=== PATIENT | female | born 1980 | race Caucasian/White ===

== ENCOUNTER 2017-11-13 14:37 | Emergency (ER) | payer MEDICARE, SELFPAY ==
[2017-11-13 14:38] VITALS: BP 147/93; PULSE 80; RESP 16; TEMP 37.2; O2SAT 100; BMI 31.1
--- NOTE | 2017-11-13 15:05 | ED.VISSUMM ---
- ER Visit Summary Date of Service: 11/13/17 Chief Complaint: I feel dehydrated History of Present Illness: The patient is a 37 F history of depression and PTSD and also an eating disorder. Patient states a deal with her stress she works out excessively and does not feel that she has kept up with her fluid intake. She denies any vomiting or diarrhea. She has never had rhabdomyolysis. And she denies any change in her urine color. Physical Examination: Well-appearing female. Vital signs are stable afebrile. HEENT exam mildly dry mucous members. Neck nontender no lymphadenopathy. Lungs clear to auscultation bilaterally. Heart regular rhythm no murmur rate about 80. Abdomen soft nontender. Normal bowel sounds no peritoneal signs. Extremities moving all 4. Calves nontender. No edema. Muscles are not tender. Neurologically awake and alert with no focal deficits. Test Results: She is a chronic anemia hemoglobin 10.8. Normal white count. Electrolytes unremarkable gap of 6 BUN and creatinine 25 and 0.7 consistent with very mild dehydration. Emergency Department Course and Treatment: Patient did not feel that she could adequately hydrate herself orally. She will be given IV fluids. Screening labs will be obtained. Treatment Plan: Exam patient is doing well after IV fluids. She will be discharged home. Disposition: Discharge Impression: Dehydration This note was generated with [employer] dictation software. It may contain incorrect words, spelling, and punctuation that were not noted in review of the chart prior to signing ED Disposition - Plan for ED Patient: Chief Complaint: General Illness Referrals: April Aguilar MD [Primary Care Provider] -
[2017-11-13] MEDS: 0.9% Normal Saline 1,000 ML 1000 ML IV (15:29)
[2017-11-13 15:37] LABS: Absolute Neutrophil Count 4.9 X10^3/uL (2.0-7.7); Basophil# 0.03 X10^3/uL; Basophil% 0.4 % (0-1); Eosinophil# 0.06 X10^3/uL; Eosinophils% 0.8 % (0-5); Hematocrit 33.8 % (37-47); Hemoglobin 10.8 g/dl (12.0-15.0); Lymphocyte % 27.5 % (19-41); Mean Corpuscular Hgb 27.6 pg (27.0-32.0); Mean Corpuscular Volume 86.2 fL (81-99); Mean Platelet Vol. 9.1 fl (6.2-12.0); Monocyte# 0.81 X10^3/uL; Monocyte% 10.1 % (0-10); Neutrophil # 4.87 X10^3/uL (2.7-7.7); Neutrophil % 60.9 % (47-70); Platelet Count 284 K/mm3 (150-450); RBC Distribution Width CV 14.4 % (11.6-14.6); Red Blood Count 3.92 M/mm3 (4.2-5.4)
[2017-11-13 15:40] LABS: POSITIVE COUNT NO; POSITIVE DIFFERENTIAL NO; POSITIVE MORPHOLOGY NO
[2017-11-13 15:53] LABS: Anion Gap 6 (5-15); BUN 25 mg/dL (7-18); BUN/Creat Ratio 34.7 RATIO (10-20); Calcium,Total 8.3 mg/dL (8.5-10.1); Chloride 107 mmol/L (98-107); Creatinine, Serum 0.72 mg/dL (0.55-1.02); EST Glomerular Filtration Rate 96 mL/min (>60); Est Glom Filt Rate - Afr Amer 117 mL/min (>60); Estimated Creatinine Clearance 83.79 ml/min; Glucose 83 mg/dL (74-106); Potassium 4.3 mmol/L (3.5-5.1); Sodium Level 140 mmol/L (136-145)
--- NOTE | 2017-11-13 16:30 | ED.DEP ---
ED Disposition - Plan for ED Patient: Disposition: Home or Assisted Living Chief Complaint: General Illness Instructions: Dehydration Referrals: April Aguilar MD [Primary Care Provider] - As Needed Additional Instructions: Plenty of fluids and rest Follow-up with your doctor as needed.
[2017-11-13 16:41] VITALS: BP 121/79; PULSE 93; RESP 16; O2SAT 100
== END 2017-11-13 16:42 | disposition home or self-care (01) ==
PROVIDERS: Emergency Provider Emergency Medicine; Family Provider Internal Medicine; PCP Internal Medicine
DX: E86.0 Dehydration (principal); F32.9 Major depressive disorder, single episode, unspecified; F43.10 Post-traumatic stress disorder, unspecified; Z79.899 Other long term (current) drug therapy
CPT/HCPCS: 80048; 85025; 96360; 99283; J7030; A4216

== ENCOUNTER 2017-11-14 11:31 | Emergency (ER) | payer MEDICARE, SELFPAY ==
[2017-11-14 11:32] VITALS: BP 124/85; PULSE 79; RESP 14; TEMP 37.2; O2SAT 100; BMI 31.6
--- NOTE | 2017-11-14 11:47 | ED.VISSUMM ---
- ER Visit Summary Date of Service: 11/14/17 Chief Complaint: Dehydration I need a second liter of normal saline History of Present Illness: The patient is a 37 F because she did not receive a second liter of normal saline. She states she returned because she was told to. She also told me I am not to be in the room with out a female esthetics instructor. There are there is no notation that male physicians are to be accompanied by a female esthetics instructor. Furthermore, I informed her that I read Dr. Walker's notes and there was no mention that he had a esthetics instructor during his examination. Patient states she needs more fluids. She was asked specifically if she has fever, chills night sweats and she states no. She was asked specifically if she has had nausea, vomiting diarrhea and she states no. When informed based on the WHO oral hydration is the recommended treatment she informed me that it is not a simple process for me . I asked her to elaborate. She informed me that she has a eating disorder. She states that she flip-flops between binge eating and anorexia nervosa atypical . Physical Examination: Has a depressed affect. Vital signs are marked for slight elevation blood pressure 08/20/1984. Head is atraumatic normocephalic. Pupils equal round reactive. Extra muscles are intact. Tongue and mucosa are tacky. The remainder of H&T exam is unremarkable. Heart is regular without murmur, gallop or rub. S1 and S2 are normal. Lungs are clear to auscultation with good movement of air bilaterally. Abdomen is soft nontender with mobile bowel sounds. She is alert oriented with a nonfocal neurologic exam Test Results: None. Labs from yesterday were reviewed. Emergency Department Course and Treatment: Patient was informed there is no indication for repeat blood work nor is there an indication for IV fluids. I informed her that since she has no vomiting or diarrhea that she could safely rehydrate herself at home. She also was informed that she should drink water 2 hours, 1 hour and 20 minutes before she goes on her 3 hour exercise binge. Furthermore, she was told that she should drink water or a replenishing liquid every 2030 minutes while exercising. Treatment Plan: Oral hydration at home Disposition: Discharged home in stable condition Impression: Mild dehydration secondary to excessive physical activity This note was generated with [employer] dictation software. It may contain incorrect words, spelling, and punctuation that were not noted in review of the chart prior to signing ED Disposition - Plan for ED Patient: Disposition: Home or Assisted Living Chief Complaint: General Illness Instructions: ED Dehydration Referrals: April Aguilar MD [Primary Care Provider] - As Needed
--- NOTE | 2017-11-14 11:53 | ED.DCSUM_ITS ---
- ER Visit Summary Date of Service: 11/14/17 Chief Complaint: Dehydration I need a second liter of normal saline History of Present Illness: The patient is a 37 F because she did not receive a second liter of normal saline. She states she returned because she was told to. She also told me I am not to be in the room with out a female bariatric physician. There are there is no notation that male physicians are to be accompanied by a female bariatric physician. Furthermore, I informed her that I read Dr. Walker's notes and there was no mention that he had a bariatric physician during his examination. Patient states she needs more fluids. She was asked specifically if she has fever, chills night sweats and she states no. She was asked specifically if she has had nausea, vomiting diarrhea and she states no. When informed based on the WHO oral hydration is the recommended treatment she informed me that it is not a simple process for me . I asked her to elaborate. She informed me that she has a eating disorder. She states that she flip-flops between binge eating and anorexia nervosa atypical . Physical Examination: Has a depressed affect. Vital signs are marked for slight elevation blood pressure 08/20/1984. Head is atraumatic normocephalic. Pupils equal round reactive. Extra muscles are intact. Tongue and mucosa are tacky. The remainder of H&T exam is unremarkable. Heart is regular without murmur, gallop or rub. S1 and S2 are normal. Lungs are clear to auscultation with good movement of air bilaterally. Abdomen is soft nontender with mobile bowel sounds. She is alert oriented with a nonfocal neurologic exam Test Results: None. Labs from yesterday were reviewed. Emergency Department Course and Treatment: Patient was informed there is no indication for repeat blood work nor is there an indication for IV fluids. I informed her that since she has no vomiting or diarrhea that she could safely rehydrate herself at home. She also was informed that she should drink water 2 hours, 1 hour and 20 minutes before she goes on her 3 hour exercise binge. Furthermore, she was told that she should drink water or a replenishing liquid every 2030 minutes while exercising. Treatment Plan: Oral hydration at home Disposition: Discharged home in stable condition Impression: Mild dehydration secondary to excessive physical activity This note was generated with [employer] dictation software. It may contain incorrect words, spelling, and punctuation that were not noted in review of the chart prior to signing ED Disposition - Plan for ED Patient: Disposition: Home or Assisted Living Chief Complaint: General Illness Instructions: ED Dehydration Referrals: April Aguilar MD [Primary Care Provider] - As Needed
== END 2017-11-14 12:11 | disposition home or self-care (01) ==
LOC: ED 12:10
PROVIDERS: Emergency Provider Emergency Medicine; Family Provider Internal Medicine; PCP Internal Medicine
DX: E86.0 Dehydration (principal); E66.9 Obesity, unspecified; Z68.31 Body mass index [BMI] 31.0-31.9, adult
CPT/HCPCS: 99282

== ENCOUNTER 2018-01-20 12:30 | Emergency (ER) | payer MEDICARE, SELFPAY ==
[2018-01-20 12:31] VITALS: BP 123/82; PULSE 92; RESP 16; TEMP 36.6; O2SAT 99; BMI 32.8
--- NOTE | 2018-01-20 12:47 | CT_ITS ---
STUDY: CT BRAIN WITHOUT CONTRAST REASON FOR EXAM: Female, 37 years old. Headaches following a fall. RADIATION DOSAGE (If Supplied By Facility): CTDIvol = ( 44.99 ) mGy, DLP = ( 711.75 ) mGycm TECHNIQUE: Transaxial CT imaging of the brain was performed without administration of intravenous contrast material. Individualized dose optimization techniques were used for this CT. COMPARISON: Comparison is made with prior study dated August 06, 2016. FINDINGS: Normal soft tissue structures. Normal calvarium. Normal size ventricles and extra-axial spaces for the patient's age. Normal white matter tracts of the cerebral hemispheres. Normal basal ganglia and thalami. Normal brainstem. Normal cerebellum. There is no intracranial hemorrhage. There are no findings of an acute ischemic infarction. Normal visualized paranasal sinuses. CT/Brain/Head without Contrast IMPRESSION: Normal unenhanced CT scan of the brain. Electronically Signed: Eleuterio Catalan MD at 13:47 EDT Tel [phone], Service support ,
--- NOTE | 2018-01-20 12:48 | CT_ITS ---
STUDY: CT CERVICAL SPINE WITHOUT CONTRAST REASON FOR EXAM: Female, 37 years old. History of fall. RADIATION DOSAGE (If Supplied By Facility): CTDIvol = ( 18.29 ) mGy, DLP = ( 419.16 ) mGycm TECHNIQUE: High resolution transaxial imaging was performed without contrast material. Sagittal and coronal images were reconstructed. Individualized dose optimization techniques were used for this CT. COMPARISON: Comparison is made with prior study dated August 06, 2016. FINDINGS: Normal craniovertebral junction. Normal anterior atlantoaxial articulation. Normal odontoid process. There is straightening of the normal cervical lordosis. Normal vertebral bodies and posterior osseous elements. C2-3: Normal endplates. Normal disc height and morphology. Normal central canal and intervertebral neuroforamina. C3-4: Normal endplates. Normal disc height and morphology. Normal central canal and intervertebral neuroforamina. C4-5: Normal endplates. Normal disc height and morphology. Normal central canal and intervertebral neuroforamina. C5-6: Minimal degree of disc space narrowing and anterior spondylosis. C6-7: Normal endplates. Normal disc height and morphology. Normal central canal and intervertebral neuroforamina. C7-T1: Normal endplates. Normal disc height and morphology. Normal central canal and intervertebral neuroforamina. Normal visualized soft tissue structures. CT/Spine Cervical without Contras IMPRESSION: No acute abnormality is seen. Straightening of the normal cervical lordosis. Electronically Signed: Eleuterio Catalan MD at 13:48 EDT Tel [phone], Service support ,
[2018-01-20] MEDS: 0.9% Normal Saline 1,000 ML 1000 ML IV (13:18)
[2018-01-20 13:40] LABS: Anion Gap 7 (5-15); BUN 24 mg/dL (7-18); BUN/Creat Ratio 29.5 RATIO (10-20); Calcium,Total 8.7 mg/dL (8.5-10.1); Chloride 104 mmol/L (98-107); Creatinine, Serum 0.81 mg/dL (0.55-1.02); EST Glomerular Filtration Rate 84 mL/min (>60); Est Glom Filt Rate - Afr Amer 101 mL/min (>60); Estimated Creatinine Clearance 74.48 ml/min; Glucose 84 mg/dL (74-106); Potassium 4.4 mmol/L (3.5-5.1); Sodium Level 141 mmol/L (136-145)
--- NOTE | 2018-01-20 15:27 | ED.VISSUMM ---
- ER Visit Summary Date of Service: 01/20/18 Chief Complaint: Head injury History of Present Illness: The patient is a 37 F who tripped on a step and fell striking the left side of her head. She did not lose consciousness. She is complaining of continued headache and neck pain. She denies nausea or vomiting. She denies vision change. Physical Examination: Vital signs are unremarkable. Patient sitting upright in bed no acute distress. Head and neck examination was no obvious external sign of trauma. There is no focal abrasion or ecchymosis. C-spine exam reveals lower C-spine tenderness both midline and paraspinal. Heart is regular rate and rhythm. On lung sounds are clear. Abdomen is soft nontender. Extremity examination is unremarkable with full range of motion and normal strength and sensation. Test Results: CT the head is normal. CT the C-spine shows no acute abnormality. There is straightening of the normal cervical lordosis. Chemistry studies are significant for BUN of 24. Emergency Department Course and Treatment: Patient does have a history of eating disorder and is requesting fluid state that she has not been eating much lately. She is given a liter of fluids along with a dose of Toradol. On repeat evaluation she is resting comfortably. Test results were discussed with her. She will take Tylenol at home and use warm compresses to her neck. Treatment Plan: [] Disposition: Discharge Impression: 1. Mechanical fall 2. Cervical spasm This note was generated with [employer] dictation software. It may contain incorrect words, spelling, and punctuation that were not noted in review of the chart prior to signing ED Disposition - Plan for ED Patient: Chief Complaint: Fall Referrals: April Aguilar MD [Primary Care Provider] -
--- NOTE | 2018-01-20 15:28 | ED.DEP ---
ED Disposition - Plan for ED Patient: Disposition: Home or Assisted Living Chief Complaint: Fall Instructions: ED Mechanical Fall, ED Sprain Strain Neck Referrals: April Aguilar MD [Primary Care Provider] - 1 Week if not improving
[2018-01-20 15:29] VITALS: BP 115/78; PULSE 106; RESP 16; O2SAT 100
[2018-01-20] MEDS: Naproxen 500 MG Tablet PO (15:42)
== END 2018-01-20 15:43 | disposition home or self-care (01) ==
PROVIDERS: Emergency Provider Emergency Medicine; Family Provider Internal Medicine; PCP Internal Medicine
DX: M62.838 Other muscle spasm (principal); W01.0XXA Fall on same level from slipping, tripping and stumbling without subsequent striking against object, initial encounter; Y93.9 Activity, unspecified; Y92.9 Unspecified place or not applicable; F32.9 Major depressive disorder, single episode, unspecified; Z79.899 Other long term (current) drug therapy
CPT/HCPCS: 70450; 72125; 80048; 96360; 99284; J7030

== ENCOUNTER 2018-08-05 15:54 | Emergency (ER) | payer MEDICARE, SELFPAY ==
[2018-08-05 15:55] VITALS: BP 148/107; PULSE 92; RESP 16; TEMP 36.5; O2SAT 100; BMI 34.7
[2018-08-05] MEDS: 0.9% Normal Saline 1,000 ML 1000 ML IV ×2 (16:26)
[2018-08-05 16:32] LABS: Red Blood Cells-Urine 0 SEEN /hpf (0-5); White Blood Cells 0 SEEN /hpf (0-5)
[2018-08-05 16:33] LABS: Absolute Lymphocyte Count 1.92 X10^3/ul (0.83-4.51); Absolute Neutrophil Count 5.4 X10^3/uL (2.0-7.7); Basophil# 0.02 X10^3/uL; Basophil% 0.2 % (0-1); Eosinophil# 0.14 X10^3/uL; Eosinophils% 1.7 % (0-5); Hematocrit 40.7 % (37-47); Hemoglobin 12.6 g/dl (12.0-15.0); Lymphocyte # 1.92 X10^3/ul (4.0); Lymphocyte % 23.5 % (19-41); Mean Corpuscular Hgb 26.8 pg (27.0-32.0); Mean Corpuscular Volume 86.6 fL (81-99); Mean Platelet Vol. 8.8 fl (6.2-12.0); Monocyte# 0.68 X10^3/uL; Monocyte% 8.3 % (0-10); Neutrophil # 5.38 X10^3/uL (2.7-7.7); Neutrophil % 65.9 % (47-70); POSITIVE COUNT NO; POSITIVE DIFFERENTIAL NO; POSITIVE MORPHOLOGY NO; Platelet Count 315 K/mm3 (150-450); RBC Distribution Width CV 13.8 % (11.6-14.6); RBC Distribution Width SD 43.8 fl (35.1-43.9); White Blood Count 8.2 K/mm3 (4.4-11.0)
[2018-08-05 16:40] LABS: Color, Urine Yellow (Yellow); Glucose, Dipstick Normal (Normal); Ketone-Dipstick Negative (Negative); Leukocyte Esterase-Dipstick Negative /ul (Negative); Nitrite-Dipstick Negative (Negative); Occult Blood-Urine Negative /ul (Negative); Protein-Dipstick Negative (Negative); Urine Bilirubin Dipstick Negative (Negative); Urine Clarity Clear (Clear); Urine Urobilinogen Normal (Normal)
[2018-08-05 16:44] LABS: Squamous Epithelial Cells - UA 5-10 SEEN /hpf (5-10)
[2018-08-05 16:45] LABS: Bacteria RARE /hpf (None Seen); Mucous, Urine 1+ /hpf (<or=2+)
[2018-08-05 16:47] LABS: Anion Gap 6 (5-15); BUN 27 mg/dL (7-18); BUN/Creat Ratio 37.3 RATIO (10-20); Calcium,Total 8.9 mg/dL (8.5-10.1); Chloride 104 mmol/L (98-107); Creatinine, Serum 0.72 mg/dL (0.55-1.02); EST Glomerular Filtration Rate 95 mL/min (>60); Est Glom Filt Rate - Afr Amer 115 mL/min (>60); Estimated Creatinine Clearance 83.79 ml/min; Glucose 78 mg/dL (74-106); Potassium 4.2 mmol/L (3.5-5.1); Sodium Level 139 mmol/L (136-145)
--- NOTE | 2018-08-05 16:48 | ED.DCSUM_ITS ---
- ER Visit Summary Date of Service: 08/05/18 Chief Complaint: Feels dehydrated History of Present Illness: The patient is a 37 F with history of eating disorder and frequently feels dehydrated and weak. Patient states she feels that she needs fluids again. She denies pain or lightheadedness. He has not h ad fever or chills. Physical Examination: Vital signs are unremarkable. Patient is lying in bed no acute distress. Head neck examination is normal. Heart is regular rate and rhythm. Lung sounds are clear. Abdomen is soft with no focal tenderness. Test Results: CBC and urinalysis are unremarkable. test is negative. BMP reveals a mild elevation in BUN at 27. Emergency Department Course and Treatment: Patient is given 2 L of IV fluid. On repeat evaluation she feels improved. Treatment Plan: [] Disposition: Discharge Impression: Mild dehydration This note was generated with [employer] dictation software. It may contain incorrect words, spelling, and punctuation that were not noted in review of the chart prior to signing ED Disposition - Plan for ED Patient: Chief Complaint: General Illness Referrals: April Aguilar MD [Primary Care Provider] -
[2018-08-05 17:19] LABS: Pregnancy, Serum, hCG Quali. NEGATIVE Negative (0-9 Nonpreg)
--- NOTE | 2018-08-05 17:24 | ED.DEP ---
ED Disposition - Plan for ED Patient: Disposition: Home or Assisted Living Chief Complaint: General Illness Instructions: ED Dehydration Referrals: April Aguilar MD [Primary Care Provider] - As Needed
[2018-08-05 18:01] VITALS: BP 114/84; PULSE 85; RESP 17; O2SAT 100
== END 2018-08-05 18:02 | disposition home or self-care (01) ==
PROVIDERS: Emergency Provider Emergency Medicine; Family Provider Internal Medicine; PCP Internal Medicine
DX: E86.0 Dehydration (principal); F31.9 Bipolar disorder, unspecified; F41.9 Anxiety disorder, unspecified; Z79.899 Other long term (current) drug therapy
CPT/HCPCS: 80048; 81001; 84703; 85025; 96360; 96361; 99283; J7030

== ENCOUNTER 2018-08-19 08:47 | Emergency (ER) | payer MEDICARE, SELFPAY ==
[2018-08-19 08:48] VITALS: BP 149/89; PULSE 83; RESP 14; TEMP 36.7; O2SAT 98; BMI 34.7
--- NOTE | 2018-08-19 09:10 | ED.VISSUMM ---
- ER Visit Summary Date of Service: 08/19/18 Chief Complaint: [Dehydration] History of Present Illness: The patient is a 37 F [presents to the emergency department with complaint of feeling like she might be dehydrated. Patient states that she gets this way for 5 times a year. Patient believes this is related to her eating disorder. 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 She feels slightly lightheaded and generally weak. Patient states that she has been under increased stress of late with personal family stuff. Patient states that she took 2 Vistaril yesterday and has Ativan as needed at home as well. She denies any vomiting or diarrhea. She denies any recent illness otherwise other than intermittently she will have low-grade temperatures up to 99 in the evenings. Patient denies urinary symptoms other than urinating less than usual.] Physical Examination: [HEENT-PERRLA, EOMI. Cranial nerves II through XII grossly intact. TMs clear. Mucous membranes slightly dry . No adenopathy. Cardiovascular-regular rate and rhythm without murmur or ectopy Lungs-clear to auscultation, chest wall stable without crepitus or subcu emphysema Abdomen-normoactive bowel sounds, soft, nontender, no rebound or rigidity, no peritoneal signs. Extremities-intact ?4, normal range of motion, normal pulses, atraumatic] Test Results: [CBC with differential showing a 7.4, hemoglobin 11.6, hematocrit 37, placed 247. Chemistries were normal. TSH was 1.31. Lactate was normal at 1.3. Urinalysis ordered and pending.] Emergency Department Course and Treatment: [Patient was given 2 L of normal saline and she felt significantly improved.] Treatment Plan: [Advised patient on pushing fluids and following up with primary care physician 3-5 days.] Disposition: [Discharged home in stable condition] Impression: [Anxiety Mild dehydration] This note was generated with [employer] dictation software. It may contain incorrect words, spelling, and punctuation that were not noted in review of the chart prior to signing ED Disposition - Plan for ED Patient: Chief Complaint: General Illness Referrals: April Aguilar MD [Primary Care Provider] -
--- NOTE | 2018-08-19 09:13 | ED.DCSUM_ITS ---
- ER Visit Summary Date of Service: 08/19/18 Chief Complaint: [Dehydration] History of Present Illness: The patient is a 37 F [presents to the emergency department with complaint of feeling like she might be dehydrated. Patient states that she gets this way for 5 times a year. Patient believes this is rel ated to her eating disorder. 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 She feels slightly lightheaded and generally weak. Patient states that she has been under increased stress of late with personal family stuff. Patient states that she took 2 Vistaril yesterday and has Ativan as needed at home as well. She denies any vomiting or diarrhea. She denies any recent illness otherwise other than intermittently she will have low-grade temperatures up to 99 in the evenings. Patient denies urinary symptoms other than urinating less than usual.] Physical Examination: [HEENT-PERRLA, EOMI. Cranial nerves II through XII grossly intact. TMs clear. Mucous membranes slightly dry . No adenopathy. Cardiovascular-regular rate and rhythm without murmur or ectopy Lungs-clear to auscultation, chest wall stable without crepitus or subcu emphysema Abdomen-normoactive bowel sounds, soft, nontender, no rebound or rigidity, no peritoneal signs. Extremities-intact ?4, normal range of motion, normal pulses, atraumatic] Test Results: [CBC with differential showing a 7.4, hemoglobin 11.6, hematocrit 37, placed 247. Chemistries were normal. TSH was 1.31. Lactate was normal at 1.3. Urinalysis ordered and pending.] Emergency Department Course and Treatment: [Patient was given 2 L of normal saline and she felt significantly improved.] Treatment Plan: [Advised patient on pushing fluids and following up with primary care physician 3-5 days.] Disposition: [Discharged home in stable condition] Impression: [Anxiety Mild dehydration] This note was generated with [employer] dictation software. It may contain incorrect words, spelling, and punctuation that were not noted in review of the chart prior to signing ED Disposition - Plan for ED Patient: Chief Complaint: General Illness Referrals: April Aguilar MD [Primary Care Provider] -
[2018-08-19] MEDS: 0.9% Normal Saline 1,000 ML 1000 ML IV (09:24)
[2018-08-19 09:42] LABS: Absolute Lymphocyte Count 2.18 X10^3/ul (0.83-4.51); Absolute Neutrophil Count 4.3 X10^3/uL (2.0-7.7); Basophil# 0.02 X10^3/uL; Basophil% 0.3 % (0-1); Eosinophil# 0.13 X10^3/uL; Eosinophils% 1.8 % (0-5); Hematocrit 36.6 % (37-47); Hemoglobin 11.6 g/dl (12.0-15.0); Lymphocyte # 2.18 X10^3/ul (4.0); Lymphocyte % 29.5 % (19-41); Mean Corp Hgb Conc 31.7 g/gl (32-36); Mean Corpuscular Hgb 27.3 pg (27.0-32.0); Mean Corpuscular Volume 86.1 fL (81-99); Mean Platelet Vol. 8.9 fl (6.2-12.0); Monocyte# 0.71 X10^3/uL; Monocyte% 9.6 % (0-10); Neutrophil # 4.32 X10^3/uL (2.7-7.7); Neutrophil % 58.5 % (47-70); Platelet Count 247 K/mm3 (150-450); RBC Distribution Width CV 14.1 % (11.6-14.6); Red Blood Count 4.25 M/mm3 (4.2-5.4); White Blood Count 7.4 K/mm3 (4.4-11.0)
[2018-08-19 09:47] LABS: POSITIVE COUNT NO; POSITIVE DIFFERENTIAL NO; POSITIVE MORPHOLOGY NO
[2018-08-19 10:04] LABS: ALB/GLOB Ratio 0.9 RATIO (0.9-2.4); AST(SGOT) 14 U/L (15-37); Alanine Aminotransfer ALT/SGPT 18 U/L (13-56); Albumin, Serum 3.3 g/dL (3.2-5.0); Alkaline Phosphatase 48 U/L (45-117); Anion Gap 7 (5-15); BUN 18 mg/dL (7-18); BUN/Creat Ratio 24.8 RATIO (10-20); Calcium,Total 8.6 mg/dL (8.5-10.1); Chloride 106 mmol/L (98-107); Creatinine, Serum 0.72 mg/dL (0.55-1.02); EST Glomerular Filtration Rate 95 mL/min (>60); Est Glom Filt Rate - Afr Amer 115 mL/min (>60); Estimated Creatinine Clearance 83.79 ml/min; Globulin 3.7 g/dL (2.2-4.2); Glucose 84 mg/dL (74-106); Potassium 4.4 mmol/L (3.5-5.1); Sodium Level 140 mmol/L (136-145); Thyroid Stim Hormone (TSH) 1.31 uIU/mL (0.358-3.74)
[2018-08-19 10:14] LABS: Lactic Acid 1.3 mmol/L (0.4-2.0)
[2018-08-19] MEDS: 0.9% Normal Saline 1,000 ML 999 ML IV (10:31)
--- NOTE | 2018-08-19 11:06 | ED.DEP ---
ED Disposition - Plan for ED Patient: Chief Complaint: General Illness Instructions: ED Stress React, ED Dehydration Referrals: April Aguilar MD [Primary Care Provider] - 3-5 Days
[2018-08-19 11:16] LABS: Mucous, Urine 0 SEEN /hpf (<or=2+); Red Blood Cells-Urine 0 SEEN /hpf (0-5)
[2018-08-19 11:19] LABS: Color, Urine Yellow (Yellow); Glucose, Dipstick Normal (Normal); Ketone-Dipstick Negative (Negative); Leukocyte Esterase-Dipstick Negative /ul (Negative); Nitrite-Dipstick Negative (Negative); Occult Blood-Urine Negative /ul (Negative); Protein-Dipstick Negative (Negative); Urine Bilirubin Dipstick Negative (Negative); Urine Clarity Sl. Cloudy (Clear); Urine Urobilinogen Normal (Normal)
[2018-08-19 11:33] LABS: Bacteria 1+ /hpf (None Seen); Squamous Epithelial Cells - UA 5-10 SEEN /hpf (5-10); White Blood Cells 0-5 SEEN /hpf (0-5)
[2018-08-19 11:48] VITALS: PULSE 87; RESP 16; O2SAT 99
== END 2018-08-19 11:49 | disposition home or self-care (01) ==
LOC: ED 09:03
PROVIDERS: Emergency Provider Emergency Medicine; Family Provider Internal Medicine; PCP Internal Medicine
DX: E86.0 Dehydration (principal); F41.9 Anxiety disorder, unspecified; F32.9 Major depressive disorder, single episode, unspecified
CPT/HCPCS: 36415; 80053; 81001; 83605; 84443; 85025; 96360; 96361; 99283; J7030; A4216

== ENCOUNTER 2018-10-17 08:51 | Emergency (ER) | payer MEDICARE, SELFPAY ==
[2018-10-17 08:52] VITALS: BP 137/92; PULSE 81; RESP 16; TEMP 36.8; O2SAT 99; BMI 36.6
[2018-10-17] MEDS: 0.9% Normal Saline 1,000 ML 1000 ML IV (10:33)
[2018-10-17 10:51] LABS: Anion Gap 6 (5-15); BUN 16 mg/dL (7-18); BUN/Creat Ratio 19.4 RATIO (10-20); Calcium,Total 8.5 mg/dL (8.5-10.1); Chloride 106 mmol/L (98-107); Creatinine, Serum 0.82 mg/dL (0.55-1.02); EST Glomerular Filtration Rate 82 mL/min (>60); Est Glom Filt Rate - Afr Amer 99 mL/min (>60); Estimated Creatinine Clearance 73.57 ml/min; Glucose 88 mg/dL (74-106); Potassium 3.9 mmol/L (3.5-5.1); Sodium Level 142 mmol/L (136-145)
--- NOTE | 2018-10-17 11:20 | ED.VISSUMM ---
- ER Visit Summary Date of Service: 10/17/18 Chief Complaint: Dehydration History of Present Illness: The patient is a 37 F patient history of PTSD, major depression, atypical anorexia, binge eating disorder, presents for concerns for dehydration. No vomiting or diarrhea. She has decreased oral intake. States she sees Dr. Mccullough along with a counselor in [place]. Last seen less than a [place] ago [place] the [place]. Denies suicidal or homicidal ideations. Nurse report noted that patient was intentionally not eat or drink due to government not helping her, I discussed this with the patient, she states her psychiatrist team has not initiated treatment for this, however denies intentionally not eating or drinking. She states normally gets better with IV fluids. No other complaints. Physical Examination: General: Alert and oriented ?3, no acute distress HEENT: Normocephalic, atraumatic. Mild dry mucosa membranes Neck: supple, nontender. Cardiovascular: Regular rate and rhythm, no murmurs Respiratory: Normal breath sounds, symmetric, no distress Abdomen: Soft, nontender, nondistended Extremities: Nontender, no edema, pulses intact ?4 Neuro: no focal neurological deficits. Psych: No suicidal or homicidal ideation Test Results: BMP: Normal Emergency Department Course and Treatment: Nontoxic no suicidal or homicidal ideation. Patient did have mild dry mucosa. IV fluids given, I's normal, systolic oral fluids in ED. Reevaluation states she is feeling better. Discharge with outpatient follow-up. Treatment Plan: [] Disposition: Discharge Impression: 1. Dehydration This note was generated with [employer] dictation software. It may contain incorrect words, spelling, and punctuation that were not noted in review of the chart prior to signing ED Disposition - Plan for ED Patient: Disposition: Home or Assisted Living Diagnosis: Dehydration Instructions: Dehydration Referrals: April Aguilar MD [Primary Care Provider] - 3-5 Days
[2018-10-17 11:42] VITALS: BP 137/86; PULSE 82; RESP 18
== END 2018-10-17 11:42 | disposition home or self-care (01) ==
PROVIDERS: Emergency Provider Emergency Medicine; Family Provider Internal Medicine; PCP Internal Medicine
DX: E86.0 Dehydration (principal); F32.9 Major depressive disorder, single episode, unspecified; F43.10 Post-traumatic stress disorder, unspecified; F50.81 Binge eating disorder; Z68.36 Body mass index [BMI] 36.0-36.9, adult; Z79.899 Other long term (current) drug therapy
CPT/HCPCS: 80048; 96360; 99284; J7030

== ENCOUNTER 2018-12-18 13:41 | Emergency (ER) | payer MEDICARE, SELFPAY ==
[2018-12-18 13:41] VITALS: BP 137/73; PULSE 105; RESP 16; TEMP 36.8; O2SAT 99; BMI 35.6
--- NOTE | 2018-12-18 14:21 | ED.VISSUMM ---
- ER Visit Summary Date of Service: 12/18/18 Chief Complaint: Lightheaded, dehydrated History of Present Illness: The patient is a 38 F with history of eating disorder presents to the emergency department feeling dehydrated. Patient states that she is been without food or drink for about 3 days. She states when she gets stressed, she involuntarily will stop eating and drinking. No she is feeling lightheaded and dizzy. She states this is consistent with a history of eating disorder. She does not feelSuicidal or homicidal. She states that she has had any thoughts of self-harm. She states she just been under stress lately. Physical Examination: Vital signs reviewed General: Well-nourished, well-developed Head: Normocephalic, atraumatic Eyes: Pupils equal and reactive, extraocular muscles intact Neck, supple, no lymphadenopathy Heart: Regular rate and rhythm Respiratory: No distress, clear bilaterally Abdomen: Soft, nontender, nondistended, no peritoneal signs Back: Nontender Extremities: Nontender, no edema, no cords Skin: Normal color no rash Neuro: Alert and oriented, no focal or lateralizing deficits Test Results: [] Emergency Department Course and Treatment: Clinically, the patient does appear to be dehydrated. She has dry mucous membranes. IV was established. Metabolic panel was obtained. The patient was given 2 L of IV fluids. She is feeling improved. At this point, I do feel that she is safe for outpatient therapy. She will continue to follow-up with her counselor for her eating disorder. Treatment Plan: [] Disposition: Discharge Impression: 1. Dehydration This note was generated with [employer] dictation software. It may contain incorrect words, spelling, and punctuation that were not noted in review of the chart prior to signing ED Disposition - Plan for ED Patient: Instructions: ED Dehydration Referrals: April Aguilar MD [Primary Care Provider] -
[2018-12-18] MEDS: 0.9% Normal Saline 1,000 ML 1000 ML IV ×2 (14:26→15:18)
--- NOTE | 2018-12-18 15:20 | ED.RN ---
ULTRASOUND USED TO START IV IN LEFT AC.
[2018-12-18 15:31] LABS: Anion Gap 4 (5-15); BUN 22 mg/dL (7-18); BUN/Creat Ratio 28.6 RATIO (10-20); Calcium,Total 8.6 mg/dL (8.5-10.1); Chloride 104 mmol/L (98-107); Creatinine, Serum 0.77 mg/dL (0.55-1.02); EST Glomerular Filtration Rate 89 mL/min (>60); Est Glom Filt Rate - Afr Amer 107 mL/min (>60); Estimated Creatinine Clearance 77.58 ml/min; Glucose 78 mg/dL (74-106); Potassium 4.1 mmol/L (3.5-5.1); Sodium Level 137 mmol/L (136-145)
[2018-12-18 16:00] VITALS: BP 126/69; PULSE 78; RESP 16; O2SAT 100
[2018-12-18 18:17] VITALS: BP 133/69; PULSE 75; RESP 18; O2SAT 99
[2018-12-18 19:45] VITALS: BP 130/81; PULSE 88; RESP 16; O2SAT 98
== END 2018-12-18 19:46 | disposition home or self-care (01) ==
PROVIDERS: Emergency Provider Emergency Medicine; Family Provider Internal Medicine; PCP Internal Medicine
DX: E86.0 Dehydration (principal); F50.89 Other specified eating disorder
CPT/HCPCS: 80048; 96360; 96361; 99285; J7030; A4216

== ENCOUNTER 2019-02-06 10:46 | Emergency (ER) | payer MEDICARE, SELFPAY ==
[2019-02-06 10:47] VITALS: BP 116/65; PULSE 89; RESP 16; TEMP 37.1; O2SAT 99; BMI 36.6
--- NOTE | 2019-02-06 10:52 | RAD_ITS ---
STUDY: X-RAY - LEFT ANKLE REASON FOR EXAM: Female, 38 years old. Patient stepped in a hole and twisted ankle. TECHNIQUE: 3 view(s) of the ankle. COMPARISON: None. FINDINGS: Normal visualized distal tibia and fibula. Normal medial and lateral malleoli. Normal tibiotalar articulation and ankle mortise. There are small plantar and posterior calcaneal spurs. The visualized subtalar, talonavicular, calcaneocuboid and tarsal articulations are normal. The soft tissue structures are unremarkable. RAD/Ankle min 3 Views IMPRESSION: No demonstrated acute fracture or dislocation. Electronically Signed: Ezequiel Castro MD at 11:35 EDT Tel , Service support ,
--- NOTE | 2019-02-06 10:52 | RAD_ITS ---
STUDY: X-RAY - RIGHT ANKLE REASON FOR EXAM: Female, 38 years old. Patient stepped in hole and twisted ankle. TECHNIQUE: 3 view(s) of the ankle. COMPARISON: None. FINDINGS: Normal visualized distal tibia and fibula. Normal medial and lateral malleoli. Normal tibiotalar articulation and ankle mortise. There is a small plantar calcaneal spur. The visualized subtalar, talonavicular, calcaneocuboid and tarsal articulations are normal. There is mild soft tissue swelling laterally. RAD/Ankle min 3 Views IMPRESSION: No demonstrated acute osseous injury. Electronically Signed: Ezequiel Castro MD at 11:38 EDT Tel , Service support ,
--- NOTE | 2019-02-06 10:55 | ED.DCSUM_ITS ---
- ER Visit Summary Date of Service: 02/06/19 Chief Complaint: Fall History of Present Illness: The patient is a 38 F who stepped awkwardly off a curb resulting in bilateral ankle injury. She notes pain over the lateral malleolus of the right ankle. She notes pain over the posterior aspect of the left ankle and some discomfort over the anterior aspect. Physical Examination: Afebrile vital signs are stable Gen: Well-nourished well-developed Head: Normocephalic atraumatic Eyes: Perrl EOMI ENT: TMs clear no rhinorrhea moist mucous membranes Neck: Supple no lymphadenopathy no JVD nontender CVS: Regular rate rhythm no murmurs normal S1-S2 Respiratory: No distress clear to auscultation bilaterally chest nontender Abdomen: Soft nontender nondistended normal bowel sounds no masses Back: Nontender Extremity: Right ankle demonstrates swelling of the lateral malleolus. No fifth metatarsal pain or fibular head pain. Left knee demonstrates superficial abrasions left ankle demonstrates tenderness at the insertion of the Achilles negative Glez test. No significant swelling. No fifth metatarsal or fibular head pain. No tibial shaft pain. Skin: Normal color no rash Neuro: alert orientated ?3 CN II-XII intact normal strength sensation reflexes gait cerebellar Psych: Normal affect normal mood Test Results: Bilateral ankle films were obtained. Negative for fracture Emergency Department Course and Treatment: Bilateral ankle Charly wraps were obtained and placed. Patient to continue ice Charly wraps ibuprofen follow-up 10 to 14 days if not improved Impression: 1. Bilateral ankle sprain This note was generated with [employer] dictation software. It may contain incorrect words, spelling, and punctuation that were not noted in review of the chart prior to signing ED Disposition - Plan for ED Patient: Disposition: Home or Assisted Living Instructions: Sprain, Ankle, with X-Ray Referrals: April Aguilar MD [Primary Care Provider] - 10-14 Days if not better
[2019-02-06] MEDS: Ibuprofen 600 MG Tablet PO (11:25)
== END 2019-02-06 12:12 | disposition home or self-care (01) ==
LOC: ED 12:02
PROVIDERS: Emergency Provider Emergency Medicine; Family Provider Internal Medicine; PCP Internal Medicine
DX: S93.401A Sprain of unspecified ligament of right ankle, initial encounter (principal); S93.402A Sprain of unspecified ligament of left ankle, initial encounter; S80.212A Abrasion, left knee, initial encounter; X50.1XXA Overexertion from prolonged static or awkward postures, initial encounter; Y93.9 Activity, unspecified; Y92.9 Unspecified place or not applicable; F41.9 Anxiety disorder, unspecified; F32.9 Major depressive disorder, single episode, unspecified; Z79.899 Other long term (current) drug therapy
CPT/HCPCS: 73610; 99285

== ENCOUNTER → 2019-02-26 08:33 | Outpatient (CLI) | payer MEDICARE, SELFPAY ==
[2019-02-26 08:17] VITALS: BMI 36.6
--- NOTE | 2019-02-26 08:34 | RAD_ITS ---
STUDY: X-RAY - RIGHT FOOT CLINICAL: Female, 38 years old. Pain on top of foot. TECHNIQUE: 3 view(s) of the foot. COMPARISON: None. FINDINGS: There is a small plantar calcaneal spur. Normal talus and remaining tarsal bones. Normal visualized subtalar, talonavicular, calcaneocuboid, tarsal and tarsometatarsal articulations. Normal metatarsi. Normal metatarsophalangeal joint of the great toe. Normal tibial and fibular sesamoid bones. Normal interphalangeal joint of the great toe. Normal phalanges of the great toe. Normal second through fifth metatarsophalangeal joints. Normal interphalangeal joints and phalanges of the lesser toes. The soft tissue structures are unremarkable. There is no demonstrated osseous destructive lesion or acute fracture. RAD/Foot min 3 Views IMPRESSION: Small plantar spur of the calcaneus, otherwise normal x-ray examination of the foot. Electronically Signed: Ray Elise MD at 17:04 EDT , Service support ,
== END ==
PROVIDERS: Family Provider Internal Medicine; PCP Internal Medicine; Referring Provider Physician Assistant; Visit Provider Physician Assistant
DX: S93.401A Sprain of unspecified ligament of right ankle, initial encounter (principal)
CPT/HCPCS: 73630

== ENCOUNTER 2019-03-25 10:00 | Outpatient (RCR) | payer MEDICARE, SELFPAY ==
[2019-02-11 14:09] VITALS: BMI 36.6
--- NOTE | 2019-02-24 16:38 | HP.PTEVAL ---
Patient's Visit Information VICTOR MANUEL MARTINEZ is a 38 year old F referred to Physical Therapy by Pao Anguiano DO with a diagnosis of Bilateral Ankle Sprained. Date of Evaluation: 02/24/19 Physical Therapist: Chelsea Martinez DPT - Visit Plan Frequency: 2x /Week Duration: 4 Weeks Plan: Bilateral ankle sprains- Focus on LE ROM, strength and functional mobility. Modalities as needed for pain mgmt. Air casts only in community on uneven terrain- no crutches at this time. - Subjective Findings: Patient reports that she fell in a pothole on February 06, 2019- sprained both ankles. Squad had to come get here and took her to ER- had x-rays and sent her home with sprains. Followed up with Dr. Ortega-she told her they were sprained and told her to make an apt with PCP to get air casts. So the urgent care gave her aircasts. Is using the crutches all the times. Pain is located along the lateral ankle. Worst: 7/10 agg: stairs, standing Eases: elevation Best: 2.5/10 Right is worse than left. Describes pain as constantly dull and shoots when movement. Sleep: disturbed due to waking up when she turns. Lives alone and has 13 stairs to enter. - Objective Posture: FH, RS, increased kyphosis. Gait: antalgic- using bilateral axillary crutches- decreased step length- slow magdi. HR/TR: pt reports unable unless she weight shifts to the other side. SLS: ws only does not SLS. Seated Hr/Tr: to painful to complete. palpation: tender to lateral malleolus bilaterally. Observation: Left: no swelling noted, Right: mild swelling lateral malleolus. ROM: Left: DF: 5 degrees reports pain, PF: 60 degrees reports pain, INv: 50 degrees, Ever: 40 degrees Right: wfl in all planes. Strength in NW: 4+/5 throughout LE. Flex: Gastroc: severe, Solues: moderate - Goals Goal 1:: Patient will be I with HEP and progression Goal Time Frame: 4-6 Weeks Goal 2:: Patient will ambulate >300 feet with no AD and a normalized gait pattern Goal Time Frame: 4-6 Weeks Goal 3:: Patient will asc/desc 8 stairs recip with 1 HR Goal Time Frame: 4-6 Weeks Goal 4:: Patient will report 0/10 pain for 1 week Goal Time Frame: 4-6 Weeks - Rehabilitation Potential Physical Therapy Diagnosis: Patient presents with hypomobility- she has decreased ROM, strength and muscular endurance leading to abnormal gait pattern and decreased balance. Rehabilitation Potential: Fair - Anticipated Interventions Therapeutic Exercise to Include: Strength training, Endurance training, Balance training, Agility training, Body mechanics, Postural training, Flexibilty training, Gait and locomotor training, Neuromotor development, Passive ROM, Active ROM, Dynamic Lumbar Stabilization For the Purpose of:: To improve ability to perform ADL's TENS: Yes Cryotherapy (ice pack, ice massage): Yes Thermo therapy (hot pack): Yes Ultrasound (thermal/non thermal): Yes Thank you for the opportunity to evaluate your patient. For Medicare and Medicare HMO plans, please review the plan of care and approve it. It will need to be FAXED BACK to us at [phone] for Medicare purposes. For Medicare only, by signing this I certify the plan of care. Please let me know if there are questions or concerns regarding this plan of care. Physician Signature: Date:
--- NOTE | 2019-03-25 10:28 | HP.PTDCSUM ---
HP - PT D/C Summary It has been my pleasure to treat VICTOR MANUEL MARTINEZ under orders from Pao Anguiano DO, for the diagnosis of Bilateral Ankle Sprained for a total of 8 visit(s). Discharge Date: Please see the following information for a summary of their discharge status. - Subjective Subjective: Patient reports that she is okay- her ankles are consistently hurting every time she comes now. She does not feel they are getting better or worse pain fishman. Worst in 48 hours Left: 5/10 Right: 6/10 Agg: stairs (asc and desc), cleaning, not having ice on them, not doing the exercises- Eases: exercise and ice Best: 0/10 when they are elevated and ice on them for 15-20 mintes- but as soon as she gets back on them they start to hurt again. Gradually they continue to swell and the swelling is the pain. Is wearing the braces intermittently- when she is out she has them on- will keep them on when she gets home until she can ice. Patient feels that she is 70% better with function- but with pain she is only 40% better. - Overall Improvement % Improvement: 70 - Objective Objective/Function: Has not had ankle braces on for an hour and half prior to objective measure taken. Gait: no deviation noted. Stairs: asc/desc 8 recip with no HR. HR/TR: good with no braces does use UE A. SLS: 15 seconds then LOB- uses UE for righting. Girth: Right: 44 cm, Left: 45.5 cm. ROM: DF: Right: 12 degrees, Left: 10 degrees- PF: 50 degrees bilaterally Inversion: 45 degrees bilaterally Ever: 30 degrees bilaterally. Strength: Ankle: 5/5. Flex: Gastroc: mild Solues: mild - Goals Goal 1:: Patient will be I with HEP and progression Goal Progress: Goal Met Goal 2:: Patient will ambulate >300 feet with no AD and a normalized gait pattern Goal Progress: Goal Met Goal 3:: Patient will asc/desc 8 stairs recip with 1 HR Goal Progress: Goal Met Goal 4:: Patient will report 0/10 pain for 1 week Goal Progress: Not Progressing - Plan Plan: At this time patient has full ROM and strength in bilateral ankles with no change in girth- appropriate for d/c and return to MD for further evaluation- Continue HEP - D/C Information If there are questions or concerns regarding this patient's physical therapy, please feel free to call me at [phone]. Thank you for the referral of this patient. Sincerely, SADIA RawlsT
== END 2019-03-25 19:00 | disposition home or self-care (01) ==
LOC: PT 10:00
PROVIDERS: Family Provider Internal Medicine; PCP Internal Medicine; Visit Provider Orthopaedic Surgery
DX: S93.402D Sprain of unspecified ligament of left ankle, subsequent encounter (principal); S93.401D Sprain of unspecified ligament of right ankle, subsequent encounter
CPT/HCPCS: 97110; 97161; 97164

== ENCOUNTER → 2019-04-22 15:21 | Outpatient (CLI) | payer MEDICARE, SELFPAY ==
[2019-04-01 09:24] VITALS: BMI 36.6
--- NOTE | 2019-04-22 15:24 | MRI_ITS ---
STUDY: MRI RIGHT MIDFOOT REASON FOR EXAM: Female, 38 years old. Twisting injury. TECHNIQUE: Standardized fat and water weighted pulse sequences were obtained in all 3 orthogonal planes. COMPARISON: X-ray 02/26/2019. FINDINGS: 2 x 0.4 cm cystic lesion dorsal lateral to the head of the talus. Soft tissues are otherwise unremarkable. Visualized intertarsal articulations are intact. Intact tarsometatarsal joints. Normal Lisfranc ligament. Normal first through fifth metatarsi. Normal sesamoid bones. Marrow signal is normal, with no evidence of fracture, bone contusion, or osteonecrosis. Flexor and extensor tendons are unremarkable. Normal intrinsic muscles of the mid and forefoot region. Normal extensor digitorum brevis muscle. MRI/Lower Ext/No Jt/w/o IMPRESSION: 1. Cystic lesion dorsal lateral to the talus. Otherwise, unremarkable study. Electronically Signed: Isabel Cummins MD at 22:59 EDT Tel , Service support ,
--- NOTE | 2019-04-22 15:24 | MRI_ITS ---
STUDY: MRI RIGHT ANKLE WITHOUT CONTRAST REASON FOR EXAM: Right ankle pain after twisting injury about 3 months ago. TECHNIQUE: Standardized fat and water weighted pulse sequences were obtained in all 3 orthogonal planes. COMPARISON: Radiographs 02/06/2019. FINDINGS: There is mild edema in the medial and lateral subcutis adipose space. There is a small volume of fluid in the distal posterior tibialis tendon sheath (T2 axial image 19). The posterior tibialis tendon is morphologically normal. Normal flexor digitorum longus tendon. Normal flexor hallucis longus tendon. Normal peroneus longus and brevis tendons. Normal tibialis anterior tendon. Normal extensor hallucis longus tendon. Normal extensor digitorum longus tendons. Normal Achilles tendon and teno-osseous insertion. Normal plantar fascia. Normal plantar calcaneal tubercles. Normal intrinsic muscles of the rearfoot. Normal distal tibiofibular syndesmotic ligamentous complex. There is a sprain with thickening and interstitial edema of the anterior talofibular ligament (inversion recovery series 8 image 6). Normal calcaneofibular and posterior talofibular ligaments. There is a ganglion cyst dorsal to the distal talus/talonavicular articulation and extending into the sinus tarsi (inversion recovery sagittal images 7-10) measuring 1.9 cm in AP dimension. Normal deltoid ligamentous complexes. Normal plantar calcaneonavicular (spring) ligament. Normal tibiotalar articulation. Normal talar dome. There is a small posterior subtalar joint effusion (inversion recovery sagittal images 7, 8). Normal talonavicular articulation. Normal calcaneocuboid articulation. Normal navicular-cuneiform articulations. MRI/Lower Ext Joint Only (Routine) IMPRESSION: Anterior talofibular ligament sprain. Mild posterior tibialis tenosynovitis. Small posterior subtalar joint effusion. Ganglion cyst dorsal to the distal talus/talonavicular articulation and extending into the sinus tarsi. No demonstrated peroneal tendon injury. Electronically Signed: Kendell Oscar MD at 10:26 EDT Tel , Service support ,
== END ==
PROVIDERS: Family Provider Internal Medicine; PCP Internal Medicine; Referring Provider Orthopaedic Surgery; Visit Provider Orthopaedic Surgery
DX: S86.301A Unspecified injury of muscle(s) and tendon(s) of peroneal muscle group at lower leg level, right leg, initial encounter (principal); X50.1XXA Overexertion from prolonged static or awkward postures, initial encounter; M67.471 Ganglion, right ankle and foot
CPT/HCPCS: 73718; 73721

== ENCOUNTER 2019-10-05 10:00 | Outpatient (RCR) | payer MEDICARE, SELFPAY ==
[2019-04-01 09:24] VITALS: BMI 36.6
--- NOTE | 2019-07-13 15:44 | HP.PTEVAL ---
Patient's Visit Information VICTOR MANUEL MARTINEZ is a 38 year old F referred to Physical Therapy by Jeanie Arias DPM with a diagnosis of B ankle instability, difficulty walking and equinus foot. Date of Evaluation: 07/02/19 Physical Therapist: Marcelo Mcdonald DPT - Visit Plan Frequency: 2x /Week Duration: 4 Weeks Plan: Start with ROM and strengthening to B ankles, add in exercises this date to HEP. pt. consents. - Subjective Findings: Pt. is here today for her initial evaluation with diagnosis of B ankle instability, difficulty walking, equinus foot. Pt. reports spraining both of her ankles in January. Pt. reports having initial ankle pain and trialed exercises in PT previously, but was so painful that she did not tolerate PT well. Pt. did have an MRI showing post tib tenosynovitis, anterior talofibular lig sprain, small subtalar joint effusion of R ankle. Pt. reports seeing a foot/ankle specialist who ordered her custom braces and inserts. Pt. reports being able to walk 8 minutes before having increased pain. Pt. reports no N/T in either LE. Pt. reports overall weakness in B ankles. Pt. is hopeful to reduce symptoms in order to walk greater distances, as she does not have a car and has to walk community distances. - Pain R ankle Pain Intensity (Out of 10): 2 Pain Intensity Range: 0 L ankle Pain Intensity (Out of 10): 1 Pain Intensity Range: 0, 7 - Objective POSTURE: Pt. has general flexed posture. Pt. has marked pes planus in B feet, L worse than R. Pt. roche slight increased B knee valgus positioning. PALPATION: Pt. has pain at R anterior talocrural joint, along anterior tibial tendon, longitudinal arch. L ankle along post tib tendon and longitudinal arch. NEURO: normal throughout bilateral LEs. ROM: Pt. has - Goals Goal 1:: Pt. to be I with HEP. Goal Time Frame: 4-6 Weeks Goal 2:: Pt. to have increased DF of B ankles to 15deg or greater. Goal Time Frame: 4-6 Weeks Goal 3:: Pt. to have increased BLE strength by 1/2 grade of all effected musculature. Goal Time Frame: 4-6 Weeks Goal 4:: Pt. to ambulate with normal gait pattern without increase in symptoms upto 1 mile. Goal Time Frame: 4-6 Weeks - Rehabilitation Potential Physical Therapy Diagnosis: Pt. has signs and symptoms consistent with B ankle instability. Pt. has subsequent hypombility with DF and instability in lateral movements. Pt. has increased pain with walking and pes planus noted bilaterally. Pt. would benefit from PT to increase her ROM into DF, increase her lateral ankle stability and increase tolerance to all walking. Rehabilitation Potential: Good - Anticipated Interventions Thank you for the opportunity to evaluate your patient. For Medicare and Medicare HMO plans, please review the plan of care and approve it. It will need to be FAXED BACK to us at [phone] for Medicare purposes. For Medicare only, by signing this I certify the plan of care. Please let me know if there are questions or concerns regarding this plan of care. Physician Signature: Date:
--- NOTE | 2019-08-26 07:29 | HP.PTREVAL ---
Jeanie Arias DPM, It has been my pleasure to treat VICTOR MANUEL MARTINEZ over the last 8 visits for B ankle instability, difficulty walking and equinus foot. Please see the progress note below for an update on the physical therapy plan of care! Subjective: Pt reprots being better off with over the counter in-soles and no braces. Pt talking about her eating disorder and depression. Objective/Function: Pt reports she was here 08-23-19- not seeing a note from that visit. P.T. off today to talk to about it. Pt limited with her knee and hip pain as to what we can do in PT. Plan Plan: Continue with current plan?? Goals Goal 1:: Pt. to be I with HEP. Goal Time Frame: 4-6 Weeks Goal Progress: Progressing Goal 2:: Pt. to have increased DF of B ankles to 15deg or greater. Goal Time Frame: 4-6 Weeks Goal Progress: Progressing Goal 3:: Pt. to have increased BLE strength by 1/2 grade of all effected musculature. Goal Time Frame: 4-6 Weeks Goal Progress: Progressing Goal 4:: Pt. to ambulate with normal gait pattern without increase in symptoms upto 1 mile. Goal Time Frame: 4-6 Weeks Goal Progress: Not Progressing Anticipated Interventions Please do not hesitate to contact me at [phone] by phone or if you have questions or concerns regarding this new plan of care! Sincerely, Marcelo Mcdonald DPT
--- NOTE | 2019-08-26 07:33 | HP.PTREVAL_ITS ---
Jeanie Arias DPM, It has been my pleasure to treat VICTOR MANUEL MARTINEZ over the last 10 visits for B ankle instability, difficulty walking and equinus foot. Please see the progress note below for an update on the physical therapy plan of care! Subjective: Pt. reports overall being 40% better overall. PT. reports no new issues,but continues to have increased pain with all walking for longer periods of time. Pt. reports pain with increase standing and waking. She has been inconsistent with exericses at home, due to reports of time issues and f orgetting what she is supposed to do. Pt. reports no N/T Objective/Function: ROM: pt. has full ROM of bilateral ankles passively, but has increased pain with INV/EVR. AROM: DF 12 deg bilat, INV 10deg/ea., PF full bilat. GAIT: Pt. ambulates without AD and is no longer using her braces. Pt. has early heel off with gait, increased lateral sway with her pattern (hip weakness). STAIRS: early heel off with descending, increased pain with both ascending and descending. Uses B HR to complete. Plan Plan: POC extended x2 per week for 3 weeks with goals of progressing strength, and fucntional mobility. Pt. is slwo to progress and reports increased pain else where with any slight progressions of reps, exercises and functional mobility. Progress slowly as tolerated. Focus on ankle stability in CKC. Goals Goal 1:: Pt. to be I with HEP. Goal Time Frame: 4-6 Weeks Goal Progress: Progressing Goal 2:: Pt. to have increased DF of B ankles to 15deg or greater. Goal Time Frame: 4-6 Weeks Goal Progress: Progressing Goal 3:: Pt. to have increased BLE strength by 1/2 grade of all effected musculature. Goal Time Frame: 4-6 Weeks Goal Progress: Progressing Goal 4:: Pt. to ambulate with normal gait pattern without increase in symptoms upto 1 mile. Goal Time Frame: 4-6 Weeks Goal Progress: Not Progressing Anticipated Interventions Please do not hesitate to contact me at [phone] by phone or if you have questions or concerns regarding this new plan of care! Sincerely, Marcelo Mcdonald DPT
--- NOTE | 2019-08-30 13:19 | HP.PTREVAL ---
Jeanie Arisa DPM, It has been my pleasure to treat VICTOR MANUEL MARTINEZ over the last 12 visits for B ankle instability, difficulty walking and equinus foot. Please see the progress note below for an update on the physical therapy plan of care! Subjective: Pt. reports I don't know how much better I am, I guess about 40%. Pt. reports that her braces were sent back, but she does not think they will fit any more, they just need to be totally redone. She reports it is hard for her to progress her exercises due to her fibromyalsia. Pt. reports having 1/10 pain in B ankles this date. Objective/Function: ROM: Pt. has good ROM of B ankles, a little stiff with INV/EVER and slight pain in biteral ankles with these motions. MMT: Pt. is 4+/5 throughout B ankles, expcet 4/5 with EVR bilaterally. Pain noted with EVR testing. GAIT: Pt. has decent gait pattern this date. Pt. walking throughout therapy clinic today without increase in symptoms. Pt. reprots having to walk longer distances before having noticable increase in symptoms. STAIRS: Pt. able to ascend/descend 9 steps without use of HRs, no effect with descending, increased pain and fatigue with ascending. Plan Plan: Pt. reports she is getting better, but slowly. Pt. shows some improvement with gait and wtih strengthening. I did talk with her about progressing complexity of strengthening and with progressing CKC exercises to increase toelrance to all functional mobility. Pt. has been hesitant to progress due to comorbidity of fibromyalsia and not wantiung to flare this. I talked to her about tissue transformation with stresses applied. Pt. contiunes to report the need for her braces to be perfect or she will never get better. I am hopeful with 6 more visits, x2 per week for 3 weeks she will be independent with her program and be able to I progress her ankle stability/strengthening. Goals Goal 1:: Pt. to be I with HEP. Goal Time Frame: 4-6 Weeks Goal Progress: Progressing Goal 2:: Pt. to have increased DF of B ankles to 15deg or greater. (Pt. has 15 deg of B ankle DF, but still has the feeling of stiffness.) Goal Time Frame: 4-6 Weeks Goal Progress: Goal Met Goal 3:: Pt. to have increased BLE strength by 1/2 grade of all effected musculature. (4+/5 throughout B ankles, except ankle EVR with is 4/5 and causes increased symptoms. Goal Time Frame: 4-6 Weeks Goal Progress: Progressing Goal 4:: Pt. to ambulate with normal gait pattern without increase in symptoms upto 1 mile. (Pt. is walking community level distances, she reports 2-3 blocks, but is unable to walk on uneven ground due to high levels of pain) Goal Time Frame: 4-6 Weeks Goal Progress: Progressing Anticipated Interventions Please do not hesitate to contact me at [phone] by phone or if you have questions or concerns regarding this new plan of care! Sincerely, Marcelo Mcdonald DPT
--- NOTE | 2020-01-12 14:09 | HP.PT.NRP ---
VICTOR MANUEL MARTINEZ was seen in my office for initial evaluation on 07/02/19. The following Plan of Care was established for this patient: Initial Frequency: 2x /Week Initial Duration: 4 Weeks This patient was last seen in our office 10/05/19. Pertinent comments regarding their Physical therapy will appear below: Pt. was treated for B ankle instability and pain. Pt. was making slow progress secondary to higher levels of pain with other places throughout BLEs and back. Pt. did not show up to her last visit and has not been seen in several months. Pt. will be DC from PT at this point in time. At this point I will be discontinuing this patient from physical therapy. I would be happy to see this patient again in the future if found appropriate by the physician. Thank you! SADIA EdwardsT
== END 2019-10-05 19:00 | disposition home or self-care (01) ==
LOC: PT 10:00
PROVIDERS: Family Provider Internal Medicine; PCP Internal Medicine; Referring Provider Podiatrist; Visit Provider Podiatrist
DX: M25.372 Other instability, left ankle (principal); M25.371 Other instability, right ankle; R26.2 Difficulty in walking, not elsewhere classified; M21.6X1 Other acquired deformities of right foot; M21.6X2 Other acquired deformities of left foot
CPT/HCPCS: 97110; 97161; 97164; 97530

== ENCOUNTER 2019-11-24 17:58 | Emergency (ER) | payer MEDICARE, MEDICAID, SELFPAY ==
[2019-09-02 12:55] VITALS: BMI 36.6
[2019-11-24 17:59] VITALS: BP 141/60; PULSE 111; RESP 16; TEMP 36.6; O2SAT 97; BMI 36.1
--- NOTE | 2019-11-24 18:35 | ED.VIS.GEN ---
History of Present Illness Chief Complaint: Bite Informant: Patient Onset: Today Narrative: Cat bite left lower lip 30 minutes prior to arrival. Patient states her cat was being bad therefore she grabbed the cat, the cat suddenly bit her on the left lower lip. Bleeding controlled. Tetanus within the last 5 years. No anticoagulation medicines. No other injuries. Prior similar symptoms: No Past Medical History - Allergies and Home Meds Allergies/Adverse Reactions: Allergies balsam donald Allergy (Verified 11/24/19 18:03) Hives divalproex sodium [From Depakote] Allergy (Verified 11/24/19 18:03) Swelling propylene glycol Allergy (Verified 11/24/19 18:03) Hives thimerosal Allergy (Verified 11/24/19 18:03) Hives TOPAMAX Adverse Reaction (Uncoded 11/24/19 18:03) Other Primary Care Physician: April Aguilar MD [Primary Care Provider] - Past Medical History: - - Anxiety, depression Smoking Status: Never smoker Review of Systems General: Denies: Chills, Fever, Sweats Eyes: Denies: Visual changes - bilaterally, Diplopia ENT: Denies: Rhinorrhea, Sore throat Cardiovascular: Denies: Chest pain, Palpitations Respiratory: Denies: Dyspnea, Cough, Dyspnea on exertion Gastrointestinal: Denies: Abdominal pain, Nausea, Vomiting, Diarrhea, Melena, Hematochezia Genitourinary: Denies: Dysuria, Hematuria, Frequency Musculoskeletal: Denies: Back pain, Extremity Pain Skin: Reports: Wounds. Denies: Rash Neurological: Denies: Headache, Weakness, Numbness Physical Exam Vital Signs/Narrative: Vital Signs Temp Pulse Resp BP Pulse Ox 11/24/19 17:59 97.9 F 111 H 16 141/60 H 97 Inital Vital Signs reviewed: Yes General: Well nourished, Well developed, No Acute Distress Head: Normocephalic, - - Left lower lip, there is 1.5 centimeter vertical laceration through the vermilion left side subcutaneous exposure, there is no active bleeding. There is scattered superficial abrasions lateral to this with no active bleeding. Eyes: Perrl, EOMI ENT: Moist mucous membranes, No rhinorrhea Neck: Supple, Nontender Cardiovascular: Regular rate, Regular rhythm, No murmurs, Tachycardia Respiratory: No distress, CTA bilaterally, Chest nontender Abdomen: Soft, Nontender, Nondistended, Normal bowel sounds Back: Nontender, Normal Inspection Extremities: Nontender, No edema Skin: Normal color, No rash Neurological: Alert, Oriented x3, Cranial nerves II-XII grossly intact, Normal Strength, Normal Sensation Psychological: Normal affect, Normal Mood Diagnostic/Tx/Re-eval - Medical Decision Making Patient with a lower lip laceration crossing the vermilion border with a cat bite. She started on Augmentin. Secondary to cosmetics issues, discussed 1 suture at the vermilion border which was placed. Signs and symptoms discussed to evaluate for infection. She will follow-up with her PCP for suture removal. Procedure note: Verbal consent. Normal sterile conditions. Topical LET was placed, wound was copiously flushed with 250 mL of normal saline, 1, 6-0 nylon suture placed at the vermilion border with good approximation. Patient tolerated procedure well. ED Disposition - Plan for ED Patient: Disposition: Home or Assisted Living Diagnosis: Cat bite of face, Laceration of vermilion border of lower lip Instructions: ED Bite Cat, ED Laceration Lip Mouth Ch Prescriptions: Amox/Clavulanate Tablet [Augmentin Tablet] 875 mg PO Q12H #10 tab Transmission Status: Pending to [id number] Referrals: April Aguilar MD [Primary Care Provider] - 7 Days for suture removal
[2019-11-24] MEDS: Amox/Clavulanate 875 MG Tablet PO (18:58)
[2019-11-24] MEDS: Lidocaine/Epi/Tetracaine 50 ML 1 APPLIC TOPICAL (18:58)
[2019-11-24 19:50] VITALS: BP 138/87; PULSE 98; RESP 16; O2SAT 98
== END 2019-11-24 19:54 | disposition home or self-care (01) ==
LOC: ED 19:46
PROVIDERS: Emergency Provider Emergency Medicine; PCP Internal Medicine
DX: S01.551A Open bite of lip, initial encounter (principal); F41.9 Anxiety disorder, unspecified; F32.9 Major depressive disorder, single episode, unspecified; W55.01XA Bitten by cat, initial encounter
CPT/HCPCS: 12011; 99283

== ENCOUNTER 2020-08-19 19:18 | Emergency (ER) | payer MEDICARE, MEDICAID, SELFPAY ==
[2020-08-19] VITALS (7 sets, daily range): BP systolic 120–146; BP diastolic 74–118; PULSE 82–98; RESP 14–24; TEMP 36.8; O2SAT 95–100; BMI 41.1
--- NOTE | 2020-08-19 19:33 | ED.DCSUM_ITS ---
- ER Visit Summary Date of Service: 08/19/20 Chief Complaint: Right ankle pain History of Present Illness: The patient is a [address] Aguilar and Dr. Anguiano. She reports that she slipped going down her steps and fell down 4 steps. She has right ankle pain is 10 of 10 severity. She denies any blow to the head or loss of consciousness. She is not on anticoagulants. She denies any neck, back, shoulder, wrist, or hip pain. Denies any paresthesias in her foot. Physical Examination: Vitals: Stable. Afebrile. Neck: No vertebral tenderness. Full ROM without difficulty. Cleared by NEXUS criteria. Back: No vertebral tenderness. General: A&O x 3. NAD. Cardiovascular exam: Regular rate and rhythm, no murmur, rub or gallop. Respiratory exam: Chest nontender. No crepitus. Clear to auscultation bilaterally. No wheezes or stridor. Abdominal exam: Soft, nontender, nondistended, normal bowel sounds. No pain in RUQ or LUQ specifically. No peritoneal signs. Extremity: Severe tenderness to palpation over the distal tibia and fibula. There is an obvious deformity. She is neurovascular intact distal sensation light touch less than 2-second cap refill. She is a 2+ dorsalis pedis pulse. She has no pain over the base of the fifth metatarsal or proximal fibula. Thank you Test Results: X-ray shows a bimalleolar fracture dislocation. Repeat x-ray shows a satisfactory reduction. Emergency Department Course and Treatment: Patient was initially given a dose of fentanyl IM. When the x-ray was obtained she had an IV placed and was given morphine IV and had procedural sedation undertaken with propofol. Her ankle was reduced. She tolerated this well. Treatment Plan: Patient was discussed with Dr. Anguiano. She will be discharged with Percocet and instructed to follow-up with her in 3 to 5 days for another exam. Return to the emergency department for any worsening symptoms. Disposition: To home in improved and stable condition. Impression: 1. Right ankle trimalleolar fracture dislocation. 2. Procedural sedation for 10 minutes. 3. Short leg plaster splint, fabricated. 4. Sugar tong splint plaster splint, fabricated. 5. Reduction right ankle fracture/dislocation by emergency physician. This note was generated with [employer] software. It may contain incorrect words, spelling, and punctuation that were not noted in review of the chart prior to signing ED Disposition - Plan for ED Patient: Instructions: ED Ankle Dislocation (Adult) Prescriptions: Oxycodone HCl/Acetaminophen [Percocet 5/325] 1 tab PO Q6H PRN PRN 5 Days #20 tab PRN Reason: Pain Score 6-10 Prescription Printed Referrals: Pao Anguiano DO [STAFF PHYSICIAN] - 3-5 Days
[2020-08-19] MEDS: Ondansetron ODT 4 MG Tablet PO (19:51)
[2020-08-19] MEDS: fentaNYL 100 MCG/2 ML Ampul 50 MCG IM (19:52)
--- NOTE | 2020-08-19 20:05 | RAD_ITS ---
STUDY: X-RAY - LEFT ANKLE REASON FOR EXAM: Female, 39 years old. INJURY GOING DOWN STAIRS, DEFORMITY AND PAIN TECHNIQUE: 3 view(s) of the ankle. COMPARISON: 07 January 2011 FINDINGS: There is an acute mildly dilated fracture in the distal third of the fibula, approximately 6 cm from the talar dome. There is a displaced fracture of the medial malleolus. There is disruption of the tibiotalar joint with lateral subluxation of the talus with respect to the tibial plafond and widening and angulation of the joint space. Medial malleolus and another osseous fragment are displaced along with the talus. Fibular talar joint is likely disrupted as well with the fibula located more posterior to the talus on the lateral view. Distal tibiofibular joint is disrupted and widened. Talus and calcaneus are intact and located. RAD/Ankle min 3 Views IMPRESSION: 1. Fracture or dislocation of the ankle. 2. Seo type C fracture of the fibula. 3. Medial malleolar fracture. 4. Lateral subluxation of the talus. Electronically Signed: González Bacon MD at 20:46 EST Tel , Service support ,
[2020-08-19] MEDS: Morphine 4 MG/ML Syringe IV ×3 (20:38→22:46)
[2020-08-19] MEDS: 0.9% Normal Saline 1,000 ML 999 ML IV (20:43)
[2020-08-19] MEDS: Propofol 200 MG/20 ML Vial IV BOLUS (21:53)
--- NOTE | 2020-08-19 21:54 | RAD_ITS ---
POST REDUCTION COMPARISON: August 19, 2020 FINDINGS: # of images incl. paperwork: 3 XR Ankle Min 3 Views: Right BONE AND JOINTS: Again noted is a comminuted fracture of the distal right fibular diaphysis. There is improved angulation when compared to prior study. There is persistent posterior displacement of the distal fracture fragment of approximately 7.5 mm. Improved alignment of the tibiotalar joint. There is also improved alignment of the medial malleolar fracture when compared to prior study. SOFT TISSUES: Interval placement of posterior splint No radiopaque foreign body. RAD/Ankle min 3 Views IMPRESSION: Improved alignment of the tibiotalar subluxation and dislocated medial malleolar fracture and improved alignment of distal fibular fracture when compared to prior study at 2328 Reported and signed by: Clara Christianson DO Electronically Signed: Clara Christianson DO at 23:27 EST Tel , Service support ,
--- NOTE | 2020-08-19 23:15 | ED.RN ---
PT EXPRESSES CONCERNS ABOUT HER SAFETY AT HOME. SPECIFICALLY EXPRESSES CONCERN OVER USING CRUTCHES W/LIMITED UPPER BODY STRENGTH. DR KIMBALL AND THIS RN ENTERED ROOM AND DISCUSSED PT'S CONCERNS W/HER. DR KIMBALL OFFERED TO CALL HOSPITALIST FOR POTENTIAL ADMISSION 2X AND PT REFUSED. DPT STATES SHE WANTED TO GO HOME.
[2020-08-20] VITALS: BP 128/76; PULSE 90; RESP 22; O2SAT 100
--- NOTE | 2020-08-20 00:17 | ED.RN ---
THIS RN ASSISTED PT INTO HER FRIEND'S VEHICLE.
== END 2020-08-20 00:10 | disposition home or self-care (01) ==
LOC: ED 21:13
PROVIDERS: Emergency Provider Emergency Medicine; PCP Internal Medicine
DX: S82.851A Displaced trimalleolar fracture of right lower leg, initial encounter for closed fracture (principal); W10.9XXA Fall (on) (from) unspecified stairs and steps, initial encounter
CPT/HCPCS: 29515; 73610; 96361; 96372; 96374; 96376; 99152; 99285; J7030; A4216

== ENCOUNTER 2020-08-20 04:34 | Observation (INO) | payer MEDICARE, MEDICAID, SELFPAY ==
[2020-08-19 19:20] VITALS: BMI 41.1
[2020-08-20] VITALS (9 sets, daily range): BP systolic 108–131; BP diastolic 58–71; PULSE 95–106; RESP 17–20; TEMP 36.5–37.9; O2SAT 96–100; BMI 40.4; BMI 38.7; BMI 38.8
--- NOTE | 2020-08-20 04:55 | RAD_ITS ---
fall last night. right ankle pain. unable to remove cast for images. pt states her ankle feels like it shifted and pain has worsened. COMPARISON: August 19, 2020 FINDINGS: # of images incl. paperwork: 3 XR Ankle Min 3 Views: Right BONE AND JOINTS: Again noted is comminuted distal fibular fracture. Alignment is similar in the AP view. On the lateral view there is persistent posterior displacement of the distal fracture fragment similar to prior study. There is lateral subluxation of the talus in relation to the tibia as well as posterior subluxation. This is increased when compared to the prior study. Medial malleolar fracture fragment is displaced laterally increased when compared to prior study. SOFT TISSUES: Posterior splint is again noted. No radiopaque foreign body. RAD/Ankle min 3 Views IMPRESSION: Increased posterior subluxation of the talus and lateral subluxation of the talus in relation to the tibia. In addition there is increased displacement of the medial malleolar fracture laterally when compared to the prior study. The distal fibula fracture is similar at 0511 Reported and signed by: Clara Christianson DO Electronically Signed: Clara Christianson DO at 5:10 EST Tel , Service support ,
--- NOTE | 2020-08-20 05:16 | ED.DCSUM_ITS ---
History of Present Illness Chief Complaint: Fall Informant: Patient Narrative: Patient stated she was discharged from the emergency department earlier tonight with a significant ankle fracture dislocation status post reduction and splinting. She tried to go home with crutches and was unsuccessful. She stated that she was correcting to her bedroom and had another fall. States that she cannot use the crutches well and is a high risk for falling again and feels that she will need rehab. She was supposed to follow-up with orthopedics as an outpatient. Stated she does not feel comfortable going home as she cannot ambulate with crutches due to chronic weakness in her left leg and previous injury to her right shoulder. - Past Medical History (1) Ovarian cyst rupture Status: Acute Past Medical History - Allergies and Home Meds Allergies/Adverse Reactions: Allergies balsam donald Allergy (Verified 08/20/20 04:39) Hives divalproex sodium [From Depakote] Allergy (Verified 08/20/20 04:39) Swelling propylene glycol Allergy (Verified 08/20/20 04:39) Hives thimerosal Allergy (Verified 08/20/20 04:39) Hives TOPAMAX Adverse Reaction (Uncoded 08/20/20 04:39) Other Primary Care Physician: April Aguilar MD [Primary Care Provider] - Prior records reviewed: Yes Past Medical History: - - , PTSD Surgical History: - - Reviewed Lives: Alone Smoking Status: Never smoker Alcohol: None Drugs: None Review of Systems General: Denies: Chills, Fever, Sweats Eyes: Denies: Visual changes - bilaterally, Diplopia ENT: Denies: Rhinorrhea, Sore throat Cardiovascular: Denies: Chest pain, Palpitations Respiratory: Denies: Dyspnea, Cough, Dyspnea on exertion Gastrointestinal: Denies: Abdominal pain, Nausea, Vomiting, Diarrhea, Melena, Hematochezia Genitourinary: Denies: Dysuria, Hematuria, Frequency Musculoskeletal: Reports: Extremity Pain - See HPI. Denies: Back pain Skin: Denies: Rash, Wounds Neurological: Denies: Headache, Weakness, Numbness Physical Exam Vital Signs/Narrative: Vital Signs Temp Pulse Resp BP Pulse Ox 08/20/20 04:35 97.8 F 104 H 17 121/71 H 100 General: Well nourished, Well developed, No Acute Distress Head: Normocephalic, Atraumatic Eyes: Perrl, EOMI ENT: Moist mucous membranes, No rhinorrhea Neck: Supple, Nontender Cardiovascular: Regular rate, Regular rhythm, No murmurs Respiratory: No distress, CTA bilaterally, Chest nontender Abdomen: Soft, Nontender, Nondistended, Normal bowel sounds Back: Nontender, Normal Inspection Extremities: Tenderness - Patient has tenderness to her right ankle that is splinted in a well-padded splint. Distal neurovascular intact.. Negative for: Nontender, No edema Skin: Normal color, No rash Neurological: Alert, Oriented x3, Cranial nerves II-XII grossly intact, Normal Strength, Normal Sensation Psychological: Normal affect, Normal Mood Diagnostic/Tx/Re-eval - Medical Decision Making Patient stated this time she cannot go home. Repeat x-ray obtained my interpretation shows mild increased subluxation of the talus and medial malleolus. No new dislocation. Alignment is grossly similar to previous. No new fracture noted. I do not feel she needs sedation again and reduction. She is reduced but with mild increase subluxation. Discussed with the hospitalist and the patient will be admitted. Patient will see orthopedics in consult ED Disposition - Plan for ED Patient: Disposition: Acute Care [facility] Diagnosis: Ankle fracture, Deterioration in ability to walk
[2020-08-20] MEDS: Acetaminophen 325 MG Tablet PO (05:44)
[2020-08-20] MEDS: oxyCODONE 5 MG Tablet PO (05:44)
--- NOTE | 2020-08-20 05:50 | PCM.HP.STD ---
Problem List (1) Trimalleolar fracture of right ankle Status: Acute (2) Ankle fracture Status: Acute (3) Deterioration in ability to walk Status: Acute (4) Ovarian cyst rupture Status: Inactive History of Present Illness Date of Admission: 08/20/20 Chief Complaint: Ankle fracture The patient is a 39 year old F with a significant history of multiple bilateral ankle sprain; PTSD; major depression; and fibromyalgia who presented to emergency department with a fall. Within few hours patient presents emergency department 2 times. For the first time she presented because she fell while walking on her stairs at home. Following the fall she had excruciating pain in her right foot. Hip pain improves with rest and worsens with movement. Imaging at the emergency department showed a trimalleolar fracture. Her right ankle was splinted. She was treated with pain medication and admission was offered. However patient declined admission. The case was discussed with Dr. Anguiano and the plan was to follow outpatient. She was sent home with crutches. When she went home she fell again. She fell while using her crutches. She reports difficulty to use the crutches. She attributes her difficulty to use the crutches because of chronic pain in her right shoulder and chronic left leg pain. Because of the second fall she came to the emergency department with plan to be admitted and possibly go to rehabilitation or make arrangements for some friends to help her at home. Currently she is unable to stay at home by herself as she may need some help. Past Medical History Medical History: Medical History (Last Updated 08/20/20 @ 06:[address] Vnekatesh Dan MD) Fibromyalgia M79.7 Allergies balsam donald Allergy (Verified 08/20/20 04:39) Hives divalproex sodium [From Depakote] Allergy (Verified 08/20/20 04:39) Swelling propylene glycol Allergy (Verified 08/20/20 04:39) Hives thimerosal Allergy (Verified 08/20/20 04:39) Hives TOPAMAX Adverse Reaction (Uncoded 08/20/20 04:39) Other Home Medications: Ambulatory Orders Medication Instructions Recorded Lorazepam [Ativan] 1 mg PO BID PRN PRN 08/17/13 Prazosin HCl [Minipress] 2 mg PO QHS 02/28/14 Hydroxyzine Pamoate [Vistaril] 50 mg PO 4X/DAY PRN PRN 07/02/14 Meloxicam [Mobic] 15 mg PO BREAKFAST 07/05/14 buPROPion XL [Wellbutrin Xl] 450 mg PO DAILY 07/05/14 Lamotrigine [Lamictal] 200 mg PO BID 09/09/14 cycloBENZAPRine HCl [Flexeril] 10 mg PO TID PRN #20 tab 01/16/15 Docusate Sodium [Colace] 200 mg PO BID 07/16/15 Lansoprazole [Prevacid] 15 mg PO BREAKFAST 07/16/15 Trazodone HCl 300 mg PO QHS 12/15/15 Amox/Clavulanate Tablet [Augmentin 875 mg PO Q12H #10 tab 11/24/19 Tablet] Oxycodone HCl/Acetaminophen 1 tab PO Q6H PRN PRN 5 Days #20 tab 08/19/20 [Percocet 5/325] Surgical History: - - Plantar fasciitis surgery Psychiatric History: Depression, Post traumatic stress Lives: Alone Smoking Status: Never smoker Alcohol: None Drugs: None - *Family History Maternal History Items: - - Depression and anxiety Paternal History Items: Heart Disease Review of Systems Constitutional: Denies: Chills, Fever, Weight Change HEENT: Denies: Head Aches, Sinus Congestion, Sinus Drainage Cardiovascular: Denies: Chest Pain, Palpitations Respiratory: Denies: Cough, Shortness of breath at rest, Sputum production Gastrointestinal: Denies: Abdominal Pain, Nausea, Vomiting Genitourinary: Denies: Dysuria Musculoskeletal: Reports: Foot Pain, Joint Pain Skin: Denies: Rash, Wounds Neurological: Denies: Numbness, Tingling, Focal weakness Psychiatric: Denies: Anxiety, Depression, Homicidal Ideations, Suicidal Ideations Hematologic/ Lymphatic: Denies: Easy Bruising, Easy Bleeding VTE Information - Inpt Only VTE Present on Admission: No VTE Mechan Device Prophylaxis: None VTE Pharm Prophylaxis ordered?: Yes Patient Problems: Active and Suspected Problems (Last Updated 08/20/20 @ 06:[address] Venkatesh Dan MD) Ankle fracture (Acute) Deterioration in ability to walk (Acute) Trimalleolar fracture of right ankle (Acute) - Physical Exam Vitals/I&O's: Vital Signs Temp Pulse Resp BP Pulse Ox 97.8 F 104 H 17 121/71 H 100 08/20/20 05:19 08/20/20 05:19 08/20/20 05:19 08/20/20 05:19 08/20/20 05:19 Oxygen Delivery Method Room Air Weight: 97.1 kg Body Mass Index (BMI) 40.4 General: Alert, Oriented x3, Cooperative HEENT: Atraumatic, PERRLA, EOMI, Normocephalic Neck: Supple, No JVD, Negative Carotid Bruits Lungs: Clear to auscultation, Normal air movement Cardiovascular: Regular rate, Normal S2, No murmurs Abdomen: Bowel Sounds Present, Soft, Non Tender Extremities: No edema, Capillary Refill Less than 3 Seconds Skin: No rashes, No breakdown Musculoskeletal: - - Right foot and lower leg in splint. Neurological: Cranial nerves II-XII grossly intact Psych/Mental Status: Normal Affect, Appropriate Assessment/Plan All Active Problems (Last Updated 08/20/20 @ 06:[address] Venkatesh Dan MD) Ankle fracture (Acute) Deterioration in ability to walk (Acute) Trimalleolar fracture of right ankle (Acute) The patient is a 39 year old F with a significant history of multiple bilateral ankle sprain; PTSD; major depression; and fibromyalgia who presented to emergency department with a fall a second time after a previous splint placed on her right ankle for trimalleolar fracture. Acute trimalleolar fracture. Ankle x-ray on first ED visit showed trimalleolar fracture which improved with splinting (08/19/2020). Worsened subluxation and displacement noted on 08/20/2020. PT and OT to work with patient. No weightbearing on affected extremity. Podiatry consulted. Pain control. Antiemetics and bowel protocol ordered. Chronic constipation On home takes Colace twice daily. Reports does not give her relief. Will order Senokot -s 2 tabs twice daily. As needed MiraLAX daily Mood disorder/PTSD Continue home medications Fibromyalgia On home NSAIDs which will be continued DVT prophylaxis Subcutaneous heparin ordered. OBSV E&M: [id number] Initial observation care L3
--- NOTE | 2020-08-20 06:50 | EKG12_ITS ---
Test Reason : PRE OP Blood Pressure : / mmHG Vent. Rate : 098 BPM Atrial Rate : 098 BPM P-R Int : 140 ms QRS Dur : 088 ms QT Int : 390 ms P-R-T Axes : 051 -06 027 degrees QTc Int : 497 ms Normal sinus rhythm Nonspecific T wave abnormality Abnormal ECG When compared with ECG of 29-APR-2016 14:47, No significant change was found Confirmed by PATRIA GOMEZ, FERNANDO ([id number]), copy editor ZACARIAS NEGRON ([id number]) on 08/23/2020 11:23:29 AM Referred By: MAXINE Confirmed By:FERNANDO ESPAÑA MD
[2020-08-20] MEDS: hydrOXYzine PAM 25 MG Capsule 50 MG PO ×3 (07:33→18:00)
[2020-08-20] MEDS: Lactated Ringers 1,000 ML 75 ML IV ×2 (07:33→22:32)
[2020-08-20] MEDS: 0.9% Saline Lock 10 ML Syringe IV ×4 (07:34→22:46)
--- NOTE | 2020-08-20 08:44 | NURSING ---
spoke with pt in room about going to surgery. informed pt that the lip ring has to come out. pt states unless we have a tool it will not come out. informed pt that surgery has instruments that will get it out. pt asks if they will replace it when surgery is over, she was informed that we do not reinsert the piercing that it will be up to her to have it replaced.
--- NOTE | 2020-08-20 09:12 | PCM.CONS.GEN ---
Problem List (1) Ankle pain Status: Acute (2) Fibromyalgia Status: Acute (3) Ankle fracture Status: Acute (4) Trimalleolar fracture of right ankle Status: Acute Reason for Consult Date of Consultation: 08/20/20 Reason for Consultation: Right ankle fracture. Right ankle pain. Fibromyalgia History of Present Illness: The patient is a 39 year old F who presents to the emergency department after fall and fracturing her right ankle. Patient was seen yesterday in the emergency department for the initial fall at which point the ankle was reduced and splinted. The patient then insisted on going home with some pain meds after being offered admission. Soon after returning home she fell again and returned to the emergency department. At that time we darryl-rayed her which showed worsening of ankle fracture with some displacement at the ankle joint level. She was then admitted at that time. Discussed the patient will likely need placement at a facility as she is a high fall risk for her rehabilitation. Patient says that she has fibromyalgia. Patient denies hurting anything else during her fall. Patient states that her other aches and pains are normal due to her fibromyalgia. Patient relates that she has chronic ankle sprains bilateral ankles. She relates that she tried to get ankle braces but had problems with the fitting. Patient denies any nausea fever vomiting chills chest pain shortness of breath. [] Past Medical History Medical History: Medical History (Last Updated 08/20/20 @ 06:[address] Venkatesh Dan MD) Fibromyalgia M79.7 Allergies balsam donald Allergy (Verified 08/20/20 04:39) Hives divalproex sodium [From Depakote] Allergy (Verified 08/20/20 04:39) Swelling propylene glycol Allergy (Verified 08/20/20 04:39) Hives thimerosal Allergy (Verified 08/20/20 04:39) Hives TOPAMAX Adverse Reaction (Uncoded 08/20/20 06:15) pt doesn't tolerate it Home Medications: Ambulatory Orders Medication Instructions Recorded Lorazepam [Ativan] 1 mg PO BID PRN PRN 08/17/13 Prazosin HCl [Minipress] 2 mg PO QHS 02/28/14 Hydroxyzine Pamoate [Vistaril] 50 mg PO 4X/DAY PRN PRN 07/02/14 Meloxicam [Mobic] 15 mg PO BREAKFAST 07/05/14 buPROPion XL [Wellbutrin Xl] 450 mg PO DAILY 07/05/14 Lamotrigine [Lamictal] 200 mg PO BID 09/09/14 cycloBENZAPRine HCl [Flexeril] 10 mg PO TID PRN #20 tab 01/16/15 Docusate Sodium [Colace] 200 mg PO BID 07/16/15 Lansoprazole [Prevacid] 15 mg PO BREAKFAST 07/16/15 Trazodone HCl 300 mg PO QHS 12/15/15 Oxycodone HCl/Acetaminophen 1 tab PO Q6H PRN PRN 5 Days #20 tab 08/19/20 [Percocet 5/325] Surgical History: - - Plantar fasciitis surgery Psychiatric History: Depression, Post traumatic stress Lives: Alone Smoking Status: Never smoker Alcohol: None Drugs: None - *Family History Maternal History Items: - - Depression and anxiety Paternal History Items: Heart Disease Review of Systems Constitutional: Denies: Chills, Fever HEENT: Denies: Hard of Hearing Cardiovascular: Denies: Chest Pain, Edema Respiratory: Denies: Cough, Shortness of Breath Musculoskeletal: Reports: Foot Pain Skin: Denies: Wounds Neurological: Denies: Numbness, Tingling Patient Problems: Active and Suspected Problems (Last Updated 08/20/20 @ 06:[address] Venkatesh Dan MD) Ankle fracture (Acute) Deterioration in ability to walk (Acute) Trimalleolar fracture of right ankle (Acute) - Physical Exam Vitals/I&O's: Vital Signs Temp Pulse Resp BP Pulse Ox 97.7 F L 103 H 18 131/58 H 99 08/20/20 06:07 08/20/20 06:07 08/20/20 06:07 08/20/20 06:07 08/20/20 07:55 Oxygen Delivery Method Room Air Weight: 94.6 kg Body Mass Index (BMI) 38.7 General: Alert, Oriented x3 HEENT: Atraumatic Abdomen: Obese Extremities: No clubbing, No cyanosis, Capillary Refill Less than 3 Seconds, No Calf Tenderness, Edema - Mild right lower extremity, - - Unable to assess DP and PT pulses on the right foot due to posterior splint Musculoskeletal: Tenderness - Right ankle Neurological: Sensory exam intact to light touch and pain Psych/Mental Status: Normal Affect, Appropriate Laboratory Results 08/20/20 09:00: Serum , Qual Pending Current Medications Acetaminophen (Acetaminophen 325 Mg Tablet) 650 mg PO Q6H PRN PRN PRN Reason: Pain Score 1-10/Temp > 100.7 F Bupropion HCl (Bupropion (Xl) 150 Mg Tablet.Xl) 450 mg PO DAILY [facility] Cyclobenzaprine HCl (Cyclobenzaprine Hcl 10 Mg Tablet) 10 mg PO TID PRN PRN PRN Reason: MS Doxazosin Mesylate (Doxazosin 1 Mg Tablet) 2 mg PO QHS [facility] Hydroxyzine Pamoate (Hydroxyzine Berenice 25 Mg Capsule) 50 mg PO 4X/DAY PRN PRN PRN Reason: ANXIETY Last Admin: 08/20/20 07:33 Dose: 50 mg Documented by: Sodium Chloride () 250 mls @ 15 mls/hr IV .[id number] PRN PRN Reason: Saline Flush Sodium Chloride () 250 mls @ 15 mls/hr IV .[id number] PRN PRN Reason: Additional IVPB Infusion Lactated Ringer's () 1,000 mls @ 75 mls/hr IV .[id number] [facility] Last Admin: 08/20/20 07:33 Dose: 75 mls/hr Documented by: Lamotrigine (Lamotrigine 100 Mg Tablet) 200 mg PO BID [facility] Lorazepam (Lorazepam 1 Mg Tablet) 1 mg PO BID PRN PRN PRN Reason: ANXIETY UNRELIEVED BY VISTARIL Meloxicam (Meloxicam 15 Mg Tablet) 15 mg PO BREAKFAST [facility] Ondansetron HCl (Ondansetron 4 Mg/2 Ml Vial) 4 mg IV Q8H PRN PRN PRN Reason: NAUSEA/VOMITING Oxycodone HCl (Oxycodone 5 Mg Tablet) 5 mg PO Q4H PRN PRN PRN Reason: Pain Score 4-5 Oxycodone HCl (Oxycodone 5 Mg Tablet) 10 mg PO Q4H PRN PRN PRN Reason: Pain Score 6-10/10 Pantoprazole Sodium (Pantoprazole Sodium 20 Mg Tablet) 20 mg PO BREAKFAST [facility] Polyethylene Glycol (Polyethylene Glycol 3350 17 Gm Packet) 17 gm PO DAILY PRN PRN Reason: Constipation Senna/Docusate Sodium (Senna/Docusate Sodium 1 Tablet) 2 tablet PO BID [facility] Sodium Chloride (0.9% Saline Lock 10 Ml Syringe) 10 - 40 ml IV UD PRN PRN Reason: SALINE FLUSH Last Admin: 08/20/20 07:34 Dose: 10 ml Documented by: Trazodone HCl (Trazodone 100 Mg Tablet) 300 mg PO QHS [facility] Assessment/Plan All Active Problems (Last Updated 08/20/20 @ 06:[address] Venkatesh Dan MD) Ankle fracture (Acute) Deterioration in ability to walk (Acute) Trimalleolar fracture of right ankle (Acute) Ankle pain (Acute) Fibromyalgia (Acute) Try malleolus right ankle fracture Right ankle pain Fibromyalgia History of chronic ankle sprains Patient seen and examined bedside Patient noted to have right ankle trimalleolar fracture which was reduced in the ED patient went home after being given prescription pain meds. Patient fell again at home and has since returned to ED with further displacement of the joint. Patient says she struggled with crutches due to shoulder pain. Patient has no myalgia X-rays were reviewed showing ankle fracture trimall with displacement of ankle joint and talus Patient currently in a posterior splint. Examination around the posterior splint shows not much worsening of swelling compared to the opposite leg. Patient noted to have large extremities due to increased body habitus. Sensations intact as well as capillary fill time. Swelling appears to be under control well enough to undergo surgery at this time. Concern with displacement of talus that there might be some impingement to vascular structures his digits are cool but not cold Discussed patient the need to go to surgery in order to correct the fracture Discussed all risks, benefits, alternatives, and complications including but not limited to infection delayed healing nonhealing need for further surgery with the patient. No guarantees were given or implied. Patient agreed to proceed with the procedure. All questions answered. Due to displacement of the ankle joint seen on x-ray I would prefer to take this to surgery today or tomorrow at the latest. We will discuss this with anesthesia and operating room team Patient tentatively scheduled for 11 AM today Patient is n.p.o. Awaiting Covid and test Due to patient following once already after fracturing her ankle patient was considered a high fall risk and would likely benefit from placement of facility during her rehabilitation Thank you for the consult Podiatry will continue to follow after surgery Chuyita Robles DPM [facility] [phone] This note was generated with [employer] dictation software. It may contain incorrect words, spelling, and punctuation that were not noted in checking the note before signing.
[2020-08-20 09:34] LABS: Internal QC Validated? YES +Cl - CLEAR BKGD; Pregnancy, Serum, hCG Quali. NEGATIVE Negative
[2020-08-20 09:35] LABS: Internal QC Validated? YES +Cl - CLEAR BKGD; Pregnancy, Urine Negative Negative; Record Kit Lot#,Urine Preg 42077
--- NOTE | 2020-08-20 10:32 | PN_ITS ---
Patient Problems: Active and Suspected Problems (Last Updated 08/20/20 @ 06:[address] Venkatesh Dan MD) Ankle fracture (Acute) Deterioration in ability to walk (Acute) Trimalleolar fracture of right ankle (Acute) Ankle pain (Acute) Fibromyalgia (Acute) Reason for Visit: R ankle fracture. Subjective: Wonders when she can eat, because she is concerned due to her eating disorder. Mouth is dry and she wants to drink water. Vitals/I&O's: Vital Signs Temp Pulse Resp BP Pulse Ox 36.5 C L 103 H 18 131/58 H 99 08/20/20 06:07 08/20/20 06:07 08/20/20 06:07 08/20/20 06:07 08/20/20 07:55 Oxygen Delivery Method Room Air Weight: 94.6 kg Body Mass Index (BMI) 38.7 General: Alert, No apparent distress HEENT: Atraumatic, Normocephalic Extremities: - - right ankle spinted and wrapped--did not remove. Microbiology Past 72 Hours 08/20/20 09:20 Mucosa - Nose SARS-CoV-2 Antigen (Rapid) - Final Laboratory Results 08/20/20 09:00: Serum , Qual NEGATIVE 08/20/20 09:20: Urine Test Negative Current Medications Acetaminophen (Acetaminophen 325 Mg Tablet) 650 mg PO Q6H PRN PRN PRN Reason: Pain Score 1-10/Temp > 100.7 F Bupropion HCl (Bupropion (Xl) 150 Mg Tablet.Xl) 450 mg PO DAILY [facility] Last Admin: 08/20/20 09:26 Dose: Not Given Documented by: Cyclobenzaprine HCl (Cyclobenzaprine Hcl 10 Mg Tablet) 10 mg PO TID PRN PRN PRN Reason: MS Doxazosin Mesylate (Doxazosin 1 Mg Tablet) 2 mg PO QHS [facility] Hydroxyzine Pamoate (Hydroxyzine Berenice 25 Mg Capsule) 50 mg PO 4X/DAY PRN PRN PRN Reason: ANXIETY Last Admin: 08/20/20 07:33 Dose: 50 mg Documented by: Sodium Chloride () 250 mls @ 15 mls/hr IV .[id number] PRN PRN Reason: Saline Flush Sodium Chloride () 250 mls @ 15 mls/hr IV .[id number] PRN PRN Reason: Additional IVPB Infusion Lactated Ringer's () 1,000 mls @ 75 mls/hr IV .[id number] [facility] Last Admin: 08/20/20 07:33 Dose: 75 mls/hr Documented by: Lamotrigine (Lamotrigine 100 Mg Tablet) 200 mg PO BID [facility] Last Admin: 08/20/20 09:26 Dose: Not Given Documented by: Lorazepam (Lorazepam 1 Mg Tablet) 1 mg PO BID PRN PRN PRN Reason: ANXIETY UNRELIEVED BY VISTARIL Meloxicam (Meloxicam 15 Mg Tablet) 15 mg PO BREAKFAST [facility] Last Admin: 08/20/20 09:24 Dose: Not Given Documented by: Ondansetron HCl (Ondansetron 4 Mg/2 Ml Vial) 4 mg IV Q8H PRN PRN PRN Reason: NAUSEA/VOMITING Oxycodone HCl (Oxycodone 5 Mg Tablet) 5 mg PO Q4H PRN PRN PRN Reason: Pain Score 4-5 Oxycodone HCl (Oxycodone 5 Mg Tablet) 10 mg PO Q4H PRN PRN PRN Reason: Pain Score 6-10/10 Pantoprazole Sodium (Pantoprazole Sodium 20 Mg Tablet) 20 mg PO BREAKFAST [facility] Last Admin: 08/20/20 09:24 Dose: Not Given Documented by: Polyethylene Glycol (Polyethylene Glycol 3350 17 Gm Packet) 17 gm PO DAILY PRN PRN Reason: Constipation Senna/Docusate Sodium (Senna/Docusate Sodium 1 Tablet) 2 tablet PO BID [facility] Last Admin: 08/20/20 09:26 Dose: Not Given Documented by: Sodium Chloride (0.9% Saline Lock 10 Ml Syringe) 10 - 40 ml IV UD PRN PRN Reason: SALINE FLUSH Last Admin: 08/20/20 07:34 Dose: 10 ml Documented by: Trazodone HCl (Trazodone 100 Mg Tablet) 300 mg PO QHS [facility] STROKE Vital Signs/Narrative: Vital Signs Pulse Ox 08/20/20 07:55 99 Medical Necessity - Tobacco Use Smoking Status: Never smoker Assessment/Plan All Active Problems (Last Updated 08/20/20 @ 06:[address] Venkatesh Dan MD) Ankle fracture (Acute) Deterioration in ability to walk (Acute) Trimalleolar fracture of right ankle (Acute) Ankle pain (Acute) Fibromyalgia (Acute) 1. Right ankle fracture with dislocation. Worse after second fall. DW Dr. Robles, pt to have have surgery today as displacement is worse after 2nd fall. Pt medically cleared for surgery. Pt insisting on going to rehab, not SNF or home upon discharge. Informed pt that has yet to be determined, but will look into it. 2. VTE prophylaxis: high risk. Chemical prophylaxis after surgery. Would continue while non-weight bearing status. 3. Fibromyalgia, PTSD, amotivation complicate overall recovery. Procedures: Other Procedure - See Report - non-billable rounding as pt admitted after midnight.
[2020-08-20] MEDS: Morphine 2 MG/ML Syringe IV (11:34)
[2020-08-20] MEDS: Meloxicam 15 MG Tablet PO (11:53)
[2020-08-20] MEDS: Pantoprazole Sodium 20 MG Tablet PO (11:53)
[2020-08-20] MEDS: buPROPion (XL) 150 MG TABLET.XL 450 MG PO (11:53)
[2020-08-20] MEDS: lamoTRIgine 100 MG Tablet 200 MG PO ×2 (11:54→22:42)
[2020-08-20] MEDS: Senna/Docusate Sodium 1 Tablet 2 TABLET PO ×2 (11:54→22:45)
[2020-08-20] MEDS: cycloBENZAPRine HCl 10 MG Tablet PO ×2 (11:58→22:42)
--- NOTE | 2020-08-20 12:16 | CT_ITS ---
CT of the right ankle without contrast INDICATION: Follow-up ankle fracture. COMPARISON: X-ray earlier today TECHNIQUE: Multiple thin section axial CT images of the the right ankle were obtained without the administration of intravenous contrast and filmed in soft tissue and bone windows. Furthermore, multiple sagittal and coronal reconstructions were performed. Dose limiting techniques were utilized. FINDINGS: No abnormal soft tissue mass, lymphadenopathy, fluid collection. There is a distracted spiral fracture the distal shaft of the fibula proximal to the tibial plafond. There is a nondisplaced oblique fracture of the posterior malleolus the tibia. There is lateral subluxation of the tibiotalar joint with a laterally displaced transverse fracture through the medial malleolus the tibia. IMPRESSION: Lateral subluxation of the tibiotalar joint with laterally displaced the transverse fracture through the base of the medial malleolus the tibia, nondisplaced oblique fracture the posterior malleolus the tibia, and a distracted spiral fracture the distal shaft of the fibula proximal to the tibial plafond. Electronically Signed: Morgan Moore MD at 14:02 EST Tel , Service support , CT/Extremity Lower without Contra
[2020-08-20] MEDS: oxyCODONE 5 MG Tablet 10 MG PO ×3 (14:01→22:43)
--- NOTE | 2020-08-20 17:12 | PCS.PANDOC ---
PANDEMIC DOCUMENTATION INITIATED: Date: 08/20/2020 Time: 606
--- NOTE | 2020-08-20 21:50 | NURSING ---
Pt has been insisting on another IV throughout our shift. Verbalized requests many times to Sharon SUAZO. Sharon advised pt that we would be in to try to restart an IV when we had the time to do so. Pt's IV is in her right antecub and looks great...no redness or coldness. Pt insists that she needs an IV in her left arm (even though she has better options in her right arm). I was able to get a 22 gauge in her left forearm and I told her that we would watch the new IV site for awhile before we pulled the one in her right antecub. Before I could even get out of the pt's room she was again asking me to remove the IV in her right antecub. I again advised pt that we would remove it when we were sure that the fluids were infusing well in the new site in the left forearm. Sharon SUAZO was updated on all of this information.
--- NOTE | 2020-08-20 22:31 | NURSING ---
Alicia, DIE CAST OPERATOR, just advised me that pt pulled the IV out of her right antecub.
[2020-08-20] MEDS: Doxazosin 1 MG Tablet 2 MG PO (22:41)
[2020-08-20] MEDS: traZODone 100 MG Tablet 300 MG PO (22:42)
[2020-08-21] VITALS (11 sets, daily range): BP systolic 121–148; BP diastolic 73–99; PULSE 93–118; RESP 16–20; TEMP 36.4–37.4; O2SAT 92–100; BMI 38.7
[2020-08-21] MEDS: Morphine 2 MG/ML Syringe IV ×3 (02:36→22:41)
[2020-08-21 05:15] LABS: Absolute Neutrophil Count 4.1 X10^3/uL (2.0-7.7); Basophil# 0.03 X10^3/uL; Basophil% 0.4 % (0-1); Eosinophil# 0.13 X10^3/uL; Eosinophils% 1.7 % (0-5); Hematocrit 33.5 % (37-47); Hemoglobin 10.6 g/dL (12.0-15.0); Lymphocyte % 31.9 % (19-41); Mean Corp Hgb Conc 31.6 g/dL (32-36); Mean Corpuscular Hgb 27.2 pg (27.0-32.0); Mean Corpuscular Volume 86.1 fL (81-99); Mean Platelet Vol. 9.3 fl (6.2-12.0); Monocyte% 10.6 % (0-10); NRBC Flagged by Analyzer 0 % (0-5); Neutrophil # 4.13 X10^3/uL (2.7-7.7); Platelet Count 246 K/mm3 (150-450); RBC Distribution Width SD 44.1 fl (35.1-43.9); Red Blood Count 3.89 M/mm3 (4.2-5.4); White Blood Count 7.5 K/mm3 (4.4-11.0)
[2020-08-21 05:33] LABS: Anion Gap 5 (5-15); BUN 15 mg/dL (7-18); BUN/Creat Ratio 22.3 RATIO (10-20); Calcium,Total 8.2 mg/dL (8.5-10.1); Chloride 106 mmol/L (98-107); Creatinine, Serum 0.67 mg/dL (0.55-1.02); EST Glomerular Filtration Rate 103 mL/min (>60); Est Glom Filt Rate - Afr Amer 124 mL/min (>60); Estimated Creatinine Clearance 84.22 ml/min; Glucose 86 mg/dL (74-106); Potassium 3.9 mmol/L (3.5-5.1); Sodium Level 138 mmol/L (136-145)
[2020-08-21 07:49] LABS: Vitamin D,25 Hydroxy 27.8 ng/mL
--- NOTE | 2020-08-21 12:36 | PCM.PN.HOSP ---
Patient Problems: Active and Suspected Problems (Last Updated 08/20/20 @ 06:[address] Venkatesh Dan MD) Ankle fracture (Acute) Deterioration in ability to walk (Acute) Trimalleolar fracture of right ankle (Acute) Ankle pain (Acute) Fibromyalgia (Acute) Subjective: Patient seen and examined. She complained of pain in her right foot, and rated it at 8/10. She is scheduled for surgery today. She has remained hemodynamically stable. Vitals/I&O's: Vital Signs Temp Pulse Resp BP Pulse Ox 98.6 F 94 16 129/79 H 100 08/21/20 10:42 08/21/20 10:42 08/21/20 10:42 08/21/20 10:42 08/21/20 10:42 Oxygen Delivery Method Room Air Weight: 208 lb 8.917 oz Body Mass Index (BMI) 38.7 Intake and Output for Last 24 Hours 08/19/20 08/20/20 08/21/20 23:59 23:59 23:59 Intake Total 1800 / 1800 1000 / 1000 Output Total 600 / 600 Balance 1200 / 1200 1000 / 1000 General: Alert, Oriented x3, Cooperative, No apparent distress HEENT: Atraumatic, PERRLA, EOMI, Normocephalic Oral: Moist Mucosa Neck: Supple, No JVD, Negative Carotid Bruits Lungs: Clear to auscultation, Normal air movement Cardiovascular: Regular rate, Normal S2, No murmurs Abdomen: Bowel Sounds Present, Soft, Non Tender Extremities: - - RLE wrapped in bandage Skin: No rashes, No breakdown Lymphatic: No Cervical, Supraclavicular, or Inguinal Adenopathy Neurological: Cranial nerves II-XII grossly intact Psych/Mental Status: Normal Affect, Appropriate, Alert and oriented to time, place, person, mood and affect Microbiology Past 72 Hours 08/20/20 09:20 Mucosa - Nose SARS-CoV-2 Antigen (Rapid) - Final Laboratory Results 08/20/20 09:00: Vitamin D 25-Hydroxy 27.8 08/21/20 04:55: WBC 7.5, RBC 3.89 L, Hgb 10.6 L, Hct 33.5 L, MCV 86.1, MCH 27.2, MCHC 31.6 L, RDW Std Deviation 44.1 H, RDW Coeff of Bassem 14.0, Plt Count 246, MPV 9.3, Immature Gran % (Auto) 0.400, Neut % (Auto) 55.0, Lymph % (Auto) 31.9, Baca % (Auto) 10.6 H, Eos % (Auto) 1.7, Baso % (Auto) 0.4, Absolute Neuts (auto) 4.1, Absolute Lymphs (auto) 2.40, Nucleated RBC % 0 08/21/20 04:55: Sodium 138, Potassium 3.9, Chloride 106, Carbon Dioxide 27.0, Anion Gap 5, BUN 15, Creatinine 0.67, Estim Creat Clear Calc 84.22, Est GFR (MDRD) Af Amer 124, Est GFR (MDRD) Non-Af 103, BUN/Creatinine Ratio 22.3 H, Glucose 86, Calcium 8.2 L Diagnostic Data Ankle X-Ray 08/20/20 04:55 IMPRESSION: Increased posterior subluxation of the talus and lateral subluxation of the talus in relation to the tibia. In addition there is increased displacement of the medial malleolar fracture laterally when compared to the prior study. The distal fibula fracture is similar at 0511 Reported and signed by: Clara Christianson DO Electronically Signed: Clara Christianson DO at 5:10 EST Tel , Service support , Lower Extremity CT 08/20/20 12:16 Current Medications Acetaminophen (Acetaminophen 325 Mg Tablet) 650 mg PO Q6H PRN PRN PRN Reason: Pain Score 1-10/Temp > 100.7 F Bupropion HCl (Bupropion (Xl) 150 Mg Tablet.Xl) 450 mg PO DAILY [facility] Last Admin: 08/20/20 11:53 Dose: 450 mg Documented by: Cyclobenzaprine HCl (Cyclobenzaprine Hcl 10 Mg Tablet) 10 mg PO TID PRN PRN PRN Reason: MS Last Admin: 08/20/20 22:42 Dose: 10 mg Documented by: Doxazosin Mesylate (Doxazosin 1 Mg Tablet) 2 mg PO QHS [facility] Last Admin: 08/20/20 22:41 Dose: 2 mg Documented by: Hydroxyzine Pamoate (Hydroxyzine Berenice 25 Mg Capsule) 50 mg PO 4X/DAY PRN PRN PRN Reason: ANXIETY Last Admin: 08/20/20 18:00 Dose: 50 mg Documented by: Sodium Chloride () 250 mls @ 15 mls/hr IV .[id number] PRN PRN Reason: Saline Flush Sodium Chloride () 250 mls @ 15 mls/hr IV .[id number] PRN PRN Reason: Additional IVPB Infusion Lactated Ringer's () 1,000 mls @ 75 mls/hr IV .[id number] [facility] Last Infusion: 08/21/20 11:55 Dose: Infused Documented by: Cefazolin Sodium 2 gm/ Sodium (Chloride) 110 mls @ 150 mls/hr IV X1 ONE Stop: 08/21/20 12:58 Lamotrigine (Lamotrigine 100 Mg Tablet) 200 mg PO BID [facility] Last Admin: 08/20/20 22:42 Dose: 200 mg Documented by: Lorazepam (Lorazepam 1 Mg Tablet) 1 mg PO BID PRN PRN PRN Reason: ANXIETY UNRELIEVED BY VISTARIL Meloxicam (Meloxicam 15 Mg Tablet) 15 mg PO BREAKFAST [facility] Last Admin: 08/21/20 07:59 Dose: Not Given Documented by: Morphine Sulfate (Morphine 2 Mg/Ml Syringe) 2 mg IV Q4H PRN PRN PRN Reason: Pain 6-10 Last Admin: 08/21/20 08:01 Dose: 2 mg Documented by: Ondansetron HCl (Ondansetron 4 Mg/2 Ml Vial) 4 mg IV Q8H PRN PRN PRN Reason: NAUSEA/VOMITING Oxycodone HCl (Oxycodone 5 Mg Tablet) 5 mg PO Q4H PRN PRN PRN Reason: Pain Score 4-5 Oxycodone HCl (Oxycodone 5 Mg Tablet) 10 mg PO Q4H PRN PRN PRN Reason: Pain Score 6-10/10 Last Admin: 08/20/20 22:43 Dose: 10 mg Documented by: Pantoprazole Sodium (Pantoprazole Sodium 20 Mg Tablet) 20 mg PO BREAKFAST [facility] Last Admin: 08/21/20 07:59 Dose: Not Given Documented by: Polyethylene Glycol (Polyethylene Glycol 3350 17 Gm Packet) 17 gm PO DAILY PRN PRN Reason: Constipation Senna/Docusate Sodium (Senna/Docusate Sodium 1 Tablet) 2 tablet PO BID [facility] Last Admin: 08/20/20 22:45 Dose: 2 tablet Documented by: Sodium Chloride (0.9% Saline Lock 10 Ml Syringe) 10 - 40 ml IV UD PRN PRN Reason: SALINE FLUSH Last Admin: 08/20/20 22:46 Dose: 10 ml Documented by: Trazodone HCl (Trazodone 100 Mg Tablet) 300 mg PO QHS [facility] Last Admin: 08/20/20 22:42 Dose: 300 mg Documented by: STROKE Vital Signs/Narrative: Vital Signs Temp Pulse Resp BP Pulse Ox 08/21/20 10:42 98.6 F 94 16 129/79 H 100 Medical Necessity - Tobacco Use Smoking Status: Never smoker Assessment/Plan All Active Problems (Last Updated 08/20/20 @ 06:[address] Venkatesh Dan MD) Ankle fracture (Acute) Deterioration in ability to walk (Acute) Trimalleolar fracture of right ankle (Acute) Ankle pain (Acute) Fibromyalgia (Acute) #Right ankle fracture with dislocation Podiatry on board. For surgery today. On IV morphine as needed for pain. PT OT on board. #Fibromyalgia and PTSD stable DVT prophylaxis: lovenox OBSV E&M: [id number] Subsequent observation care L2
--- NOTE | 2020-08-21 13:04 | PCM.OPRPT ---
Problem List (1) Ankle pain Status: Acute Qualifiers: Chronicity: acute Laterality: right Qualified Code(s): M25.571 - Pain in right ankle and joints of right foot (2) Fibromyalgia Status: Acute (3) Ankle fracture Status: Acute Qualifiers: Encounter type: initial encounter Fracture type: closed (4) Trimalleolar fracture of right ankle Status: Acute Qualifiers: Encounter type: initial encounter Fracture type: closed Qualified Code(s): S82.851A - Displaced trimalleolar fracture of right lower leg, initial encounter for closed fracture (5) Osteopenia Status: Acute Report of Operation Date of Procedure: 08/21/20 Pre-Operative Diagnosis: right ankle trimalleolar fracture. right ankle pain. chronic ankle instability Post-Operative Diagnosis: same with addition of osteoporotic bone Surgery/Procedure Performed:: open reduction internal fixation right ankle Description of Surgical Findings:: hemostasis: right thigh tourniquet at 300 mmHg right popliteal block with an additional 20 cc of 0.25% Marcaine plain in ankle block fashion Materials: Arthrex 10 hole straight locking plate, 3-hole locking medial hook plate, one 2.7 x 18 mm locking screw, one 3.5 x 12 mm 3.5 cortical screw, one 3.5 x 14 mm cortical screw, one 3.5 x 16 mm cortical screw, one 3.5 x 20 mm cortical screw, three 3.5 x 10 mm locking screw, two 3.5 x 12 mm locking screw, two 3.5 x 20 mm locking screw, one 4 x 45 mm cannulated long threaded screw 2-0 Vicryl, 3-0 Vicryl, 4-0 Vicryl, 4-0 nylon fruit distributor: Chuyita Robles is surgeon, Gamaliel See PGY1 cutter first Type of Anesthesia:: Block,Regional - Popliteal block right lower extremity, General, Local - 20 cc of 0.25% bupivacaine plain in ankle block type fashion Specimen's removed: none Estimated Blood Loss (mL): <70 Description of Procedure: INDICATIONS FOR OPERATION: Patient is a 39-year-old female who presents to the hospital after a fall and breaking of her right ankle. Patient was noted to have a trimalleolar fracture. Patient had fallen earlier that day resulting in the initial ankle fracture at which time she was seen at the emergency department and had her ankle splinted and was sent home with pain medication and instructions to follow-up outpatient. Patient then proceeded to fall again at home and came back to the emergency department with noted subluxation increases in fracture lines noted to previous post splint x-rays. Patient was admitted at that time with the idea of potential placement for rehabilitation as she is already fallen once. Podiatry was consulted for management of the fracture. Patient was seen with the splint on. Patient neurovascular seems to be intact. Patient has history of chronic ankle instability and has had AFOs made to help with this but patient says she doesn't wear them as they don't fit correctly. Patient also has a history of fibromyalgia. Patient also has a history of eating disorders including anorexia which patient relates has weakened her bones and she takes some vitamin D for. Discussed further supplementing to assist in healing. Patient was seen and was discussed surgical intervention with the patient. Discussed all risks, benefits, alternatives, and complications including but not limited to infection delayed healing nonhealing need for further surgery with the patient. No guarantees were given or implied. Patient agreed to proceed with the procedure. All questions answered. DESCRIPTION OF OPERATION: The popliteal block was administered prior to surgery to the operative limb. The patient was brought to the operating room and laid supine on the operating room table. All bony prominences were well padded. A thigh tourniquet was applied to the operative extremity but not inflated at this time. General anesthesia was then established. The operative foot and leg were then prepped and draped in the usual fashion. The limb was exsanguinated and tourniquet inflated to 300 mmHg. Attention was then directed to the lateral aspect of the patient's operative leg where approximately a 15 cm linear incision was made overlying the patient's fibula laterally. The incision was deepened down in a layered fashion through skin and subcutaneous layers, superficial and deep fascia and periosteum utilizing a combination of sharp and blunt dissection. Care was taken to retract all vital neurovascular structures. The superficial peroneal nerve was identified and safely retracted. All bleeders were cauterized and ligated as necessary. Full-thickness flaps were raised in the anterior and posterior direction exposing the fibula. The fibula fracture was noted. As was some hematoma. A curette was introduced to remove the hematoma. There were multiple fracture lines with comminution noted. The fracture was reduced with bone clamps across the proximal long oblique fracture line. At this point, clinically, the fracture was reduced and compressed at the proximal aspect. At this point, appropriately sized nonlocking cortical screw size noted above was placed from anterior and posterior across the fracture site through the fracture line. This was done utilizing standard AO lag screw technique and the screw was tightened down. Excellent compression was noted at the fracture site and was verified utilizing the intraoperative fluoroscopy. The distal fracture line with multiple noted comminution was then identified. Due to the amount of comminution it was not able to be clamped and reduced. A plate was then placed with traction along the fibula to reduce the fracture and restore length was then placed across the fibula. Placement of the plate and reduction of the fracture was confirmed under C arm. Intraoperative fluoroscopy was also used to visualize the right fibula and excellent alignment of the fracture site with restorationist of the length of the fibula and reduction of any angulation or rotation was noted. An arthrex straight locking plate was then utilized to provide stability to the fracture site. The plate was secured with appropriately sized screws sizes noted above insert following standard AO technique. All screws were placed from lateral to medial. A screw hole was left empty for its use in a syndesmosis screw. Intraoperative fluoroscopy was used throughout this process and was checked again after all screws and plate was applied. Screws were deemed proper length and plate was fairly well adhered to the fibula with anatomic alignment maintained. Attention was then directed to the posterior malleolus. Under c arm it was noted that fibular fracture reduction provided adequate reduction of the posterior malleolar fracture. The fracture itself encompassed less than 25% of the articular surface. With the reduction to the posterior malleolus fracture from reduction of the fibular fracture is was deemed that further fixation of the posterior malleolus fracture was not necessary. Attention was then directed to the medial aspect of the operative ankle where a 5 cm incision is made distal to proximal over top of the medial malleolus. The medial malleolus avulsion fracture was visualized and any tiny bone fragments and hematoma were removed with a curette. A bone clamp was utilized in order to reduce the fracture. This reduction was confirmed her fracture was noted to be in good alignment. K wire was then placed distal to proximal across the fragment. Placement care was confirmed under C arm. Appropriately sized screw was then placed over top of the K wire to hold the fragment in place. This was done using standard AO technique. Upon placement of screw which should be noted that due to the patient's poor bone quality that the medial malleolus avulsion fracture cortex cracked and the screw was removed as it no longer held purchase. It was then determined that a hook plate would best serve reduction of the fracture fragment with given the patient's poor bone quality. A medial malleolus hook plate was then applied to the medial malleolus with good anatomic alignment and reduction of the medial malleolus fracture. Appropriate size screws was placed throughout the plate following standard AO technique. All this was done under C-arm guidance with appropriate length screws noted and confirmed under C arm with good fashion noted across the fracture site. Some of the comminuted fragments were noted to be within the medial ankle gutter. As many of these were removed as was possible. Maintenance of fracture reduction was confirmed under C-arm as well as alignment and placement of plate and screws. Attention was then directed to laterally to the empty fibular plate hole at the level of the syndesmosis. An arthrex knotless tight rope was then inserted laterally to medially. Again the tight rope button pulled through the poor quality cortex of the tibia medially secondary to the patient's poor bone quality. It was then decided that the syndesmosis screw would be the best option for the patient. The syndesmosis was reduced with a clamp. Reduction was confirmed under C arm. Due to the medial hook plate it was decided that a three cortices screw would be utilized. Appropriately sized screw was then placed from laterally to medially through the lateral fibular plate with good compression across the syndesmosis. Reduction remained when clamp was removed. This was all confirmed under C arm. An arthrex small business representative was present for placement and insertion of the plate and screws. All incision sites were then flushed with copious amounts of normal sterile saline. The incision were then closed in layers using 2-0, 3-0, 4-0 vicryl and 4-0 nylon sutures. The incisions had adaquate coverage of hardware was achieved in simple suture fashion before continuing to more superficial layers with running suture fashion in the subcuticular layer and simple and horizontal fashion for skin. A sterile compressive dressing was applied with Xeroform, 4 x 4's, ABDs, Kerlix, cast padding and then a posterior splint applied and secured down with an Charly wrap with particular attention directed to padding heel and all bony prominences. The tourniquet was deflated. Prompt brisk hyperemic response was noted to all digits of the patient's operative foot. The patient tolerated the procedure well. Patient was transferred to PACU with vital signs stable and vital signs intact. Patient will be transferred back to the floor once she is stable. Podiatry will continue to follow on the floor. Patient will follow up with Dr. Robles upon discharge. Patient was discharged with the following written and oral post operative instructions 1. Patient to keep dressing clean, dry, and intact 2. Patient to ice and elevate operative foot 3. Pt to take prescribed medication as instructed 4. Patient to remain NWB to operative foot in posterior splint 5. Patient to increase her vitamin D supplementation to assist with bone healing and especially due to the poor bone quality noted 6. Patient to follow up in one week with Dr. Robles 7. Patient to watch for increase in redness, swelling, drainage, signs of infection and instructed to present to DrYobany office or go to ED if these symptoms present. - Complications none - Admit VTE Documentation VTE Present on Admission: Yes VTE Mechan Device Prophylaxis: SCD's VTE Pharm Prophylaxis ordered?: Yes
--- NOTE | 2020-08-21 13:15 | CASEMGMT ---
Addendum entered by Kimi Lim 08/21/20 16:08: LAKEISHA ABDI attempted again to complete ROWAN form with patient. Patient as not returned to the unit. CM will attempt to complete form in the morning. Original Note: LAKEISHA ABDI attempted to complete ROWAN form with patient. Patient is out of room and in OR at this time. LAKEISHA ABDI will attempt to complete ROWAN form at later time when patient is on unit.
[2020-08-21] MEDS: Lactated Ringers 1,000 ML 75 ML IV ×3 (13:30→19:51)
[2020-08-21] MEDS: Cefazolin 2 GM in 0.9% Normal Saline 100 ML IV (13:33)
--- NOTE | 2020-08-21 13:45 | RAD_ITS ---
STUDY: X-RAY - RIGHT ANKLE REASON FOR EXAM: Female, 39 years old. RIGHT ANKLE FRACTURE REPAIR TECHNIQUE: 16 C-arm view(s) of the ankle. 234 seconds fluoroscopy time. COMPARISON: None. FINDINGS: These series of C-arm images shows placement of compression plate and screws across distal fibular and tibial fractures which appear in anatomic alignment and position. Correlate with procedure note. Electronically Signed: Oswaldo Schmitt MD at 23:53 EST , Service support , RAD/Ankle min 3 Views
--- NOTE | 2020-08-21 16:08 | CHAPLAIN ---
Type of Pastoral Visit ___ Initial Visit ___ Follow-up Visit ___ On-call Visit ___ General Patient Visit ___ Spiritual Assessment ___ Family Conference ___ Bereavement ___ Rapid Response ___ Code Blue _x__ Other (describe below) Pastoral Care Referral From ___ Patient ___ Family ___ Nurse ___ Physician ___ Surgical Aide ___ Automobile Accessories Installer ___ Other (describe below) Sacrament/Intervention ___ Active listening ___ Anointing ___ Taoist ___ Bereavement ___ Communion ___ Yissel exploration ___ ___ Life review ___ Prayer ___ Reconciliation ___ Sacrament of Sick ___ Supportive presence ___ Wedding ___ Other (describe below) Pastoral Comments patient and bed are out of the room at time of attempted visit
--- NOTE | 2020-08-21 19:35 | RAD_ITS ---
STUDY: X-RAY - RIGHT ANKLE REASON FOR EXAM: Female, 39 years old. Rt ankle post op TECHNIQUE: 3 view(s) of the ankle. COMPARISON: 08/20/2020. FINDINGS: Splint obscures bone detail. Compression plates and screws are seen fixating distal fibular and tibial fractures into anatomic alignment and position. Normal visualized talus and calcaneus. The visualized subtalar, talonavicular, calcaneocuboid and tarsal articulations are normal. The soft tissue structures are unremarkable. RAD/Ankle min 3 Views IMPRESSION: Grossly satisfactory appearance of distal tibial and fibular fractures status post ORIF. Electronically Signed: Oswaldo Schmitt MD at 20:53 EST , Service support ,
[2020-08-21] MEDS: LORazepam 1 MG Tablet PO (21:59)
[2020-08-21] MEDS: Senna/Docusate Sodium 1 Tablet 2 TABLET PO (22:40)
[2020-08-21] MEDS: lamoTRIgine 100 MG Tablet 200 MG PO (22:40)
[2020-08-21] MEDS: Doxazosin 1 MG Tablet 2 MG PO (22:40)
[2020-08-21] MEDS: traZODone 100 MG Tablet 300 MG PO (22:41)
[2020-08-22] VITALS (7 sets, daily range): BP systolic 116–141; BP diastolic 66–92; PULSE 67–111; RESP 16–18; TEMP 36.7–37.3; O2SAT 94–100
[2020-08-22] MEDS: oxyCODONE 5 MG Tablet 10 MG PO ×4 (01:54→21:49)
[2020-08-22] MEDS: Lactated Ringers 1,000 ML 75 ML IV (05:00)
--- NOTE | 2020-08-22 05:57 | NURSING ---
pt refusing to sit on the edge of the bed at this time. pt has not been out of bed since surgery.
[2020-08-22 06:21] LABS: Absolute Lymphocyte Count 1.74 X10^3/uL (0.83-4.51); Absolute Neutrophil Count 5.9 X10^3/uL (2.0-7.7); Basophil# 0.03 X10^3/uL; Basophil% 0.3 % (0-1); Eosinophil# 0.08 X10^3/uL; Eosinophils% 0.9 % (0-5); Hematocrit 35.2 % (37-47); Hemoglobin 11.4 g/dL (12.0-15.0); Lymphocyte # 1.74 X10^3/ul (4.0); Mean Corp Hgb Conc 32.4 g/dL (32-36); Mean Corpuscular Hgb 27.6 pg (27.0-32.0); Mean Corpuscular Volume 85.2 fL (81-99); Mean Platelet Vol. 8.8 fl (6.2-12.0); Monocyte# 0.88 X10^3/uL; Monocyte% 10.1 % (0-10); NRBC Flagged by Analyzer 0 % (0-5); Neutrophil # 5.91 X10^3/uL (2.7-7.7); Neutrophil % 68.2 % (47-70); Platelet Count 274 K/mm3 (150-450); RBC Distribution Width CV 13.8 % (11.6-14.6); RBC Distribution Width SD 43.2 fl (35.1-43.9); Red Blood Count 4.13 M/mm3 (4.2-5.4); White Blood Count 8.7 K/mm3 (4.4-11.0)
[2020-08-22] MEDS: Morphine 2 MG/ML Syringe IV (06:37)
[2020-08-22] MEDS: 0.9% Saline Lock 10 ML Syringe IV (06:38)
[2020-08-22 06:43] LABS: Anion Gap 5 (5-15); BUN 6 mg/dL (7-18); BUN/Creat Ratio 9.4 RATIO (10-20); Calcium,Total 8.2 mg/dL (8.5-10.1); Chloride 103 mmol/L (98-107); Creatinine, Serum 0.64 mg/dL (0.55-1.02); EST Glomerular Filtration Rate 109 mL/min (>60); Est Glom Filt Rate - Afr Amer 131 mL/min (>60); Estimated Creatinine Clearance 88.17 ml/min; Glucose 101 mg/dL (74-106); Potassium 3.9 mmol/L (3.5-5.1); Sodium Level 138 mmol/L (136-145)
--- NOTE | 2020-08-22 07:48 | PN_ITS ---
Patient Problems: Active and Suspected Problems (Last Updated 08/20/20 @ 06:[address] Venkatesh Dan MD) Ankle fracture (Acute) Deterioration in ability to walk (Acute) Trimalleolar fracture of right ankle (Acute) Ankle pain (Acute) Fibromyalgia (Acute) Subjective: Patient seen and examined. She had open reduction and internal fixation of right ankle fracture yesterday. Today is POD 1. Pain is poorly controlled. Review of systems is otherwise negative. Patient is also very tearful because she says her mother hasn't come to visit her. Vitals/I&O's: Vital Signs Temp Pulse Resp BP Pulse Ox 99 F 94 16 137/83 H 94 08/22/20 06:36 08/22/20 06:36 08/22/20 06:36 08/22/20 06:36 08/22/20 07:22 Oxygen Flow Rate (L/min) 2 Oxygen Delivery Method Room Air Weight: 208 lb 8.917 oz Body Mass Index (BMI) 38.7 Intake and Output for Last 24 Hours 08/20/20 08/21/20 08/22/20 23:59 23:59 23:59 Intake Total 1800 / 1800 3210 / 3210 1086.25 / 1086.25 Output Total 600 / 600 800 / 800 1400 / 1400 Balance 1200 / 1200 2410 / 2410 -313.75 / -313.75 General: Alert, Oriented x3, Cooperative, No apparent distress HEENT: Atraumatic, PERRLA, EOMI, Normocephalic Oral: Moist Mucosa Neck: Supple, No JVD, Negative Carotid Bruits Lungs: Clear to auscultation, Normal air movement Cardiovascular: Regular rate, Normal S2, No murmurs Abdomen: Bowel Sounds Present, Soft, Non Tender Extremities: - - RLE wrapped in bandage Skin: No rashes, No breakdown Lymphatic: No Cervical, Supraclavicular, or Inguinal Adenopathy Neurological: Cranial nerves II-XII grossly intact Psych/Mental Status: Normal Affect, Appropriate, Alert and oriented to time, place, person, mood and affect Microbiology Past 72 Hours 08/20/20 09:20 Mucosa - Nose SARS-CoV-2 Antigen (Rapid) - Final Laboratory Results 08/20/20 09:00: Vitamin D 25-Hydroxy 27.8 08/22/20 06:14: WBC 8.7, RBC 4.13 L, Hgb 11.4 L, Hct 35.2 L, MCV 85.2, MCH 27.6, MCHC 32.4, RDW Std Deviation 43.2, RDW Coeff of Bassem 13.8, Plt Count 274, MPV 8.8, Immature Gran % (Auto) 0.500, Neut % (Auto) 68.2, Lymph % (Auto) 20.0, Kerr % (Auto) 10.1 H, Eos % (Auto) 0.9, Baso % (Auto) 0.3, Absolute Neuts (auto) 5.9, Absolute Lymphs (auto) 1.74, Nucleated RBC % 0 08/22/20 06:14: Sodium 138, Potassium 3.9, Chloride 103, Carbon Dioxide 30.0, Anion Gap 5, BUN 6 L, Creatinine 0.64, Estim Creat Clear Calc 88.17, Est GFR (MDRD) Af Amer 131, Est GFR (MDRD) Non-Af 109, BUN/Creatinine Ratio 9.4 L, Glucose 101, Calcium 8.2 L Current Medications Acetaminophen (Acetaminophen 325 Mg Tablet) 650 mg PO Q6H PRN PRN PRN Reason: Pain Score 1-10/Temp > 100.7 F Bupropion HCl (Bupropion (Xl) 150 Mg Tablet.Xl) 450 mg PO DAILY [facility] Last Admin: 08/21/20 19:23 Dose: Not Given Documented by: Cyclobenzaprine HCl (Cyclobenzaprine Hcl 10 Mg Tablet) 10 mg PO TID PRN PRN PRN Reason: MS Last Admin: 08/20/20 22:42 Dose: 10 mg Documented by: Doxazosin Mesylate (Doxazosin 1 Mg Tablet) 2 mg PO QHS [facility] Last Admin: 08/21/20 22:40 Dose: 2 mg Documented by: Hydroxyzine Pamoate (Hydroxyzine Berenice 25 Mg Capsule) 50 mg PO 4X/DAY PRN PRN PRN Reason: ANXIETY Last Admin: 08/20/20 18:00 Dose: 50 mg Documented by: Sodium Chloride () 250 mls @ 15 mls/hr IV .[id number] PRN PRN Reason: Saline Flush Sodium Chloride () 250 mls @ 15 mls/hr IV .[id number] PRN PRN Reason: Additional IVPB Infusion Lactated Ringer's () 1,000 mls @ 75 mls/hr IV .[id number] [facility] Last Admin: 08/22/20 05:00 Dose: 75 mls/hr Documented by: Lamotrigine (Lamotrigine 100 Mg Tablet) 200 mg PO BID [facility] Last Admin: 08/21/20 22:40 Dose: 200 mg Documented by: Lorazepam (Lorazepam 1 Mg Tablet) 1 mg PO BID PRN PRN PRN Reason: ANXIETY UNRELIEVED BY VISTARIL Last Admin: 08/21/20 21:59 Dose: 1 mg Documented by: Meloxicam (Meloxicam 15 Mg Tablet) 15 mg PO BREAKFAST [facility] Last Admin: 08/21/20 07:59 Dose: Not Given Documented by: Morphine Sulfate (Morphine 2 Mg/Ml Syringe) 2 mg IV Q4H PRN PRN PRN Reason: Pain 6-10 Last Admin: 08/22/20 06:37 Dose: 2 mg Documented by: Ondansetron HCl (Ondansetron 4 Mg/2 Ml Vial) 4 mg IV Q8H PRN PRN PRN Reason: NAUSEA/VOMITING Oxycodone HCl (Oxycodone 5 Mg Tablet) 5 mg PO Q4H PRN PRN PRN Reason: Pain Score 4-5 Oxycodone HCl (Oxycodone 5 Mg Tablet) 10 mg PO Q4H PRN PRN PRN Reason: Pain Score 6-10/10 Last Admin: 08/22/20 05:29 Dose: 10 mg Documented by: Pantoprazole Sodium (Pantoprazole Sodium 20 Mg Tablet) 20 mg PO BREAKFAST [facility] Last Admin: 08/21/20 07:59 Dose: Not Given Documented by: Polyethylene Glycol (Polyethylene Glycol 3350 17 Gm Packet) 17 gm PO DAILY PRN PRN Reason: Constipation Senna/Docusate Sodium (Senna/Docusate Sodium 1 Tablet) 2 tablet PO BID [facility] Last Admin: 08/21/20 22:40 Dose: 2 tablet Documented by: Sodium Chloride (0.9% Saline Lock 10 Ml Syringe) 10 - 40 ml IV UD PRN PRN Reason: SALINE FLUSH Last Admin: 08/22/20 06:38 Dose: 10 ml Documented by: Trazodone HCl (Trazodone 100 Mg Tablet) 300 mg PO QHS [facility] Last Admin: 08/21/20 22:41 Dose: 300 mg Documented by: STROKE Vital Signs/Narrative: Vital Signs Temp Pulse Resp BP Pulse Ox 08/22/20 07:22 94 08/22/20 06:36 99 F 94 16 137/83 H 94 08/22/20 05:28 99.1 F 101 H 16 138/92 H 100 Medical Necessity - Tobacco Use Smoking Status: Never smoker Assessment/Plan All Active Problems (Last Updated 08/20/20 @ 06:[address] Venkatesh Dan MD) Ankle fracture (Acute) Deterioration in ability to walk (Acute) Trimalleolar fracture of right ankle (Acute) Ankle pain (Acute) Fibromyalgia (Acute) #Right ankle fracture with dislocation * Podiatry on board. * today is POD 1 for right ankle ORIF * On IV morphine as needed for pain. will add on gabapentin, as patient says she has nerve pain. * PT OT on board. * fall precautions * #Fibromyalgia and PTSD * stable * DVT prophylaxis: lovenox Inpatient E&M: 90167 Subs Hosp L2
--- NOTE | 2020-08-22 08:16 | PN_ITS ---
Patient Problems: Active and Suspected Problems (Last Updated 08/20/20 @ 06:[address] Venkatesh Dan MD) Ankle fracture (Acute) Deterioration in ability to walk (Acute) Trimalleolar fracture of right ankle (Acute) Ankle pain (Acute) Fibromyalgia (Acute) Subjective: Patient seen and examined bedside. Patient denies any new pedal complaints. Patient denies any nausea, fever, chills, chest pain, shortness of breath, cough, streaking, purulence, vomiting. Patient states that she is in severe pain to her right lower extremity. Patient did not believe that the pain could get worse than what it was preoperatively. Patient states that the pain meds are helping sometimes. - Physical Exam Vitals/I&O's: Vital Signs Temp Pulse Resp BP Pulse Ox 99 F 94 16 137/83 H 94 08/22/20 06:36 08/22/20 06:36 08/22/20 06:36 08/22/20 06:36 08/22/20 07:22 Oxygen Flow Rate (L/min) 2 Oxygen Delivery Method Room Air Weight: 94.6 kg Body Mass Index (BMI) 38.7 Intake and Output for Last 24 Hours 08/20/20 08/21/20 08/22/20 23:59 23:59 23:59 Intake Total 1800 / 1800 3210 / 3210 1086.25 / 1086.25 Output Total 600 / 600 800 / 800 1400 / 1400 Balance 1200 / 1200 2410 / 2410 -313.75 / -313.75 General: Alert, Oriented x3 HEENT: Atraumatic Extremities: No clubbing, No cyanosis, Capillary Refill Less than 3 Seconds - Digits are warm without any cyanosis noted., Edema, - - Patient is in a posterior splint and after surgery. The splint is clean and well intact. Skin: Incision Musculoskeletal: Tenderness - Right lower extremity and thigh. Thigh is likely secondary to tourniquet during surgery, - Neurological: Sensory exam intact to light touch and pain - Patient is able to feel light touch to her toes though she states she feels them but they feel different Psych/Mental Status: Anxious, Alert and oriented to time, place, person, mood and affect Microbiology Past 72 Hours 08/20/20 09:20 Mucosa - Nose SARS-CoV-2 Antigen (Rapid) - Final Laboratory Results 08/22/20 06:14: WBC 8.7, RBC 4.13 L, Hgb 11.4 L, Hct 35.2 L, MCV 85.2, MCH 27.6, MCHC 32.4, RDW Std Deviation 43.2, RDW Coeff of Bassem 13.8, Plt Count 274, MPV 8.8, Immature Gran % (Auto) 0.500, Neut % (Auto) 68.2, Lymph % (Auto) 20.0, [place] % (Auto) 10.1 H, Eos % (Auto) 0.9, Baso % (Auto) 0.3, Absolute Neuts (auto) 5.9, Absolute Lymphs (auto) 1.74, Nucleated RBC % 0 08/22/20 06:14: Sodium 138, Potassium 3.9, Chloride 103, Carbon Dioxide 30.0, Anion Gap 5, BUN 6 L, Creatinine 0.64, Estim Creat Clear Calc 88.17, Est GFR (MDRD) Af Amer 131, Est GFR (MDRD) Non-Af 109, BUN/Creatinine Ratio 9.4 L, Glucose 101, Calcium 8.2 L Current Medications Acetaminophen (Acetaminophen 325 Mg Tablet) 650 mg PO Q6H PRN PRN PRN Reason: Pain Score 1-10/Temp > 100.7 F Bupropion HCl (Bupropion (Xl) 150 Mg Tablet.Xl) 450 mg PO DAILY [facility] Last Admin: 08/21/20 19:23 Dose: Not Given Documented by: Cyclobenzaprine HCl (Cyclobenzaprine Hcl 10 Mg Tablet) 10 mg PO TID PRN PRN PRN Reason: MS Last Admin: 08/20/20 22:42 Dose: 10 mg Documented by: Doxazosin Mesylate (Doxazosin 1 Mg Tablet) 2 mg PO QHS [facility] Last Admin: 08/21/20 22:40 Dose: 2 mg Documented by: Hydroxyzine Pamoate (Hydroxyzine Berenice 25 Mg Capsule) 50 mg PO 4X/DAY PRN PRN PRN Reason: ANXIETY Last Admin: 08/20/20 18:00 Dose: 50 mg Documented by: Sodium Chloride () 250 mls @ 15 mls/hr IV .[id number] PRN PRN Reason: Saline Flush Sodium Chloride () 250 mls @ 15 mls/hr IV .[id number] PRN PRN Reason: Additional IVPB Infusion Lactated Ringer's () 1,000 mls @ 75 mls/hr IV .[id number] [facility] Last Admin: 08/22/20 05:00 Dose: 75 mls/hr Documented by: Lamotrigine (Lamotrigine 100 Mg Tablet) 200 mg PO BID [facility] Last Admin: 08/21/20 22:40 Dose: 200 mg Documented by: Lorazepam (Lorazepam 1 Mg Tablet) 1 mg PO BID PRN PRN PRN Reason: ANXIETY UNRELIEVED BY [facility] Last Admin: 08/21/20 21:59 Dose: 1 mg Documented by: Meloxicam (Meloxicam 15 Mg Tablet) 15 mg PO BREAKFAST [facility] Last Admin: 08/21/20 07:59 Dose: Not Given Documented by: Morphine Sulfate (Morphine 2 Mg/Ml Syringe) 2 mg IV Q4H PRN PRN PRN Reason: Pain 6-10 Last Admin: 08/22/20 06:37 Dose: 2 mg Documented by: Ondansetron HCl (Ondansetron 4 Mg/2 Ml Vial) 4 mg IV Q8H PRN PRN PRN Reason: NAUSEA/VOMITING Oxycodone HCl (Oxycodone 5 Mg Tablet) 5 mg PO Q4H PRN PRN PRN Reason: Pain Score 4-5 Oxycodone HCl (Oxycodone 5 Mg Tablet) 10 mg PO Q4H PRN PRN PRN Reason: Pain Score 6-10/10 Last Admin: 08/22/20 05:29 Dose: 10 mg Documented by: Pantoprazole Sodium (Pantoprazole Sodium 20 Mg Tablet) 20 mg PO BREAKFAST [facility] Last Admin: 08/21/20 07:59 Dose: Not Given Documented by: Polyethylene Glycol (Polyethylene Glycol 3350 17 Gm Packet) 17 gm PO DAILY PRN PRN Reason: Constipation Senna/Docusate Sodium (Senna/Docusate Sodium 1 Tablet) 2 tablet PO BID [facility] Last Admin: 08/21/20 22:40 Dose: 2 tablet Documented by: Sodium Chloride (0.9% Saline Lock 10 Ml Syringe) 10 - 40 ml IV UD PRN PRN Reason: SALINE FLUSH Last Admin: 08/22/20 06:38 Dose: 10 ml Documented by: Trazodone HCl (Trazodone 100 Mg Tablet) 300 mg PO QHS [facility] Last Admin: 08/21/20 22:41 Dose: 300 mg Documented by: Medical Necessity - Tobacco Use Smoking Status: Never smoker Assessment/Plan All Active Problems (Last Updated 08/20/20 @ 06:[address] Venkatesh Dan MD) Ankle fracture (Acute) Deterioration in ability to walk (Acute) Trimalleolar fracture of right ankle (Acute) Ankle pain (Acute) Fibromyalgia (Acute) Try malleolus right ankle fracture is post ORIF 08/21/2020 Right ankle pain Fibromyalgia History of chronic ankle sprains Patient seen and examined bedside Patient noted to have right ankle trimalleolar fracture which was reduced in the ED patient went home after being given prescription pain meds. Patient fell again at home and has since returned to ED with further displacement of the joint. Patient says she struggled with crutches due to shoulder pain. Patient lives alone X-rays were reviewed showing ankle fracture trimall with displacement of ankle joint and talus Patient currently in a posterior splint. Examination around the posterior splint shows not much worsening of swelling compared to the opposite leg and preoperatively. Patient noted to have large extremities due to increased body habitus. Sensations intact as well as capillary fill time. Patient is in a lot of pain. Patient is currently getting morphine. Discussed also the importance of icing and elevation with the patient. Patient had ice on top of the fiberglass medial lateral aspect of the leg when I entered the room. Discussed that if he more beneficial to place it behind the knee and anterior leg that on the sides. Reviewed how the surgery went with the patient. Discussed that she had some poor bone quality with multiple fracture lines necessitating plate and screw constructs. Discussed she may need to go back to surgery to remove syndesmosis screw. Discussed that her vitamin D levels were below average at 27.8 and discuss upping her supplementation levels to encourage proper bone healing. Reviewed post operative x-rays. Showing gross realignment of tibia and fibula fractures with screw and plate constructs. Reviewed with the patient the normal course of healing. Discussed with patient is can have to be nonweightbearing for about 2 months to her right lower extremity. Discussed that a cast will go on at a later date once postoperative swelling is better controlled. Awaiting PT eval I recommend discharge to a care facility as she is high risk for fall Due to patient following once already after fracturing her ankle patient was considered a high fall risk and would likely benefit from placement of facility during her rehabilitation Splint left in place at this time. Podiatry will continue to follow please contact if any questions or concerns Chuyita Robles DPM [facility] [phone] This note was generated with [employer] dictation software. It may contain incorrect words, spelling, and punctuation that were not noted in checking the note before signing.
--- NOTE | 2020-08-22 09:15 | CASEMGMT ---
LAKEISHA ABDI in to discuss ROWAN form with patient. LAKEISHA ABDI explained ROWAN form to patient, patient voices understanding. Patient signed ROWAN form and filed in chart. Patient provided with copy of signed ROWAN form. Patient had no further questions or concerns at this time.
[2020-08-22] MEDS: Meloxicam 15 MG Tablet PO (09:32)
[2020-08-22] MEDS: lamoTRIgine 100 MG Tablet 200 MG PO ×2 (09:33→21:48)
[2020-08-22] MEDS: Pantoprazole Sodium 20 MG Tablet PO (09:33)
[2020-08-22] MEDS: cycloBENZAPRine HCl 10 MG Tablet PO ×2 (09:34→14:44)
[2020-08-22] MEDS: buPROPion (XL) 150 MG TABLET.XL 450 MG PO (09:34)
[2020-08-22] MEDS: LORazepam 1 MG Tablet PO (09:35)
[2020-08-22] MEDS: Acetaminophen 325 MG Tablet 650 MG PO ×2 (09:35→17:54)
--- NOTE | 2020-08-22 10:16 | CASEMGMT ---
Social Work Assessment Referral Date: 08/21/2019 Date of Assessment: 08/22/2019 Reason for consult: [facility] Informant: Physician JEANNE reviewed chart, pt requesting rehab unit, not SNF. JEANNE placed a call to Eb[facility] with [facility] and provided referral. [facility] not able to accept pt, feel pt will not be able to handle three hours of therapy a day. Personal Status: SW in to speak with pt. SW introduced self and role at [facility]. Pt is alert and orientated x3. Living Arrangements: Pt states that she lives alone and has 13-17 steep steps. Pt states she has wall and rails next to steps. Pt states she may have a friend who might be able to assist pt. DME: None, pt then states she did have crutches at home but was not able to use them because she was too weak. Pt states she doesn't drive. Pt states she either walks, or uses cab/bus to get around. PCP: DR. Aguilar Pharmacy: [facility] Substance Abuse Hx: Pt denied Mental Health Hx: Pt states history of anxiety and depression, states is currently on medications prescribed through Dr. Aguilar. Pt then states she has other medications prescribed through Kip Reid at [facility] in [place]. Pt states she is current with counseling, has been in counseling half her life. Pt states she last saw her counselor either 1 or two weeks ago. Pt states history of suicidal thoughts, denied any attempts. Pt currently denied any current suicidal thoughts/plans/ideations. JEANNE spoke with pt regarding discharge plans. SW informed pt that [facility] is not able to accept pt, informed pt that [facility] feels pt is not able to do three hours of therapy. Pt states she may be able to do it later on. SW informed pt that she cannot wait at [facility] until she is able to do three hours of therapy a day. JEANNE discussed SNF vs Home with [facility]. Pt states she is not able to return home as she needs someone to help her go to the bathroom. SW informed pt that if she feels she cannot go home, then pt will need to go to SNF. SW discussed SNF with pt and was provided a list of SNF providers including quality and resource use data and consistent with the patient?s preferred geographic region, medical needs, and insurance network. SW encouraged pt to have 2-3 choices for SNF and to have choices today as process for SNF needs to be started. Pt then states she is tired, doesn't feel like herself. Pt then states she feels she is being mistreated at [facility]. SW asked pt what she meant by this and pt states not getting my medications on time. SW informed pt that this worker can provide pt with patient advocate number, pt agreeable to taking number. SW will provide pt with number. SW informed pt that this worker will be back in today after lunch to get choices for SNF. Pt states understanding. JEANNE did place a call to [facility] in [facility], pt's insurance ([facility] is not approving TCU at this time). Plan: SNF pending acceptance and pre-cert Kimi Saba MANDARIN TUTOR, FIBERGLASS TECHNICIAN
[2020-08-22] MEDS: Gabapentin 300 MG Capsule PO ×2 (11:09→17:51)
--- NOTE | 2020-08-22 13:02 | CASEMGMT ---
Social Work Note SW back in to speak with pt regarding SNF options. SW provided pt with Patient Advocate business card. SW asked pt about options for SNF. Pt states she hasn't had a chance to review list yet. SW verbally went over list with pt, asked if this worker could send a referral someone. Pt states I haven't picked a place yet. SW informed pt that this worker is aware of that but pt needs to pick a SNF soon. Pt states come back after lunch. SW to follow up with pt. Kimi Saba LEAD DATABASE ADMINISTRATOR, HOSPITALITY TEAM MEMBER
--- NOTE | 2020-08-22 14:21 | CASEMGMT ---
Addendum entered by Kimi Saba 08/22/20 15:03: JEANNE back in to speak with pt and Janny. SW updated pt and Janny that this worker called [facility] and they don't offer residential (PT/OT) they only offer mental health services. SW informed pt and Janny that this worker did send a referral to [facility] and this worker is waiting for call back. Pt asked if she could take her therapy cat to [facility]. SW informed Pt that this worker is not sure, will call [facility]. Pt states understanding. JEANNE placed a call to Kaitlynn at [facility] and asked about therapy cat. Kaitlynn asked if pt had paperwork proving pt's cat is therapy cat. SW informed Kaitlynn this worker is not sure, will ask pt. JEANNE back in to speak with pt. JEANNE updated pt that [facility] is asking if she has paperwork for cat deeming the cat to be a therapy cat. Pt states she doesn't have any of the paperwork. Pt states she thinks her psychiatrist filled out the paperwork. SW asked pt if this worker can call [facility] (who pt had mentioned before is where pt currently gets medications from) and pt states if I am not going to [facility] why would you need to call [facility]? SW informed pt that pt had mentioned to this worker that there is where pt is currently going for counseling. Pt then states it was my previous counselor (Dr. Patrick) through [facility] who may have completed paperwork. Pt states it was when I was in the psych wards. Pt then states he doesn't work for them anymore. SW asked pt if pt's parents had forms or if [facility] would have record, pt states she is not sure. SW informed pt that this worker is just trying to help pt get needed forms for therapy cat at [facility]. Pt states where is [facility]. SW informed pt that [facility] is on [facility]. Pt states that wasn't even my choice, it was my mother's choice. Pt states that's what she does, she makes decisions for me. Pt states my mother is not my POA, because I don't have one and I want to make my own decisions. SW informed pt that she is able to make her own decisions. Pt states I am just so out of it, I am sorry I am not giving you the answers you need. Pt does appear to be drowsy and in and out of sleeping during conversation with this worker. JEANNE attempted to again review list of SNF with pt and inform pt's on pt's mother choices. Pt states I just can't make decisions right now. SW informed pt that this worker will follow up with pt tomorrow when hopefully pt is less drowsy. JEANNE placed a call to Kaitlynn at [facility] and left message to hold off on referral at this time as pt may be changing mind. SW to follow up with pt tomorrow. Kimi Saba MATERIAL CONTROLLER, TOUR BUS DRIVER/GUIDE Original Note: Social Work Note SW provided list with choices for SNF. 1) [facility] 2) [facility] 3) [facility]. SW then updated that pt mentioned that [facility] as a residential facility attached to them. SW in to speak with pt and pt's mother Janny present in room. SW introduced self and role at [facility]. JEANNE asked pt and Janny if they knew the name of the residential attached to [facility] and neither pt or Janny know name. JEANNE informed pt that this worker has tried to google facility with no luck. Pt states you can call them. Pt states she would like this worker to try to find the residential attached to [facility] as first choice. JEANNE placed a call to [facility] and spoke with Emma. Emma states they have no residential attached to the facility, unaware of any local nursing homes. Emma states pt may be referring to their [facility]. Emma provided contact information for that program. [facility] phone number# [phone]. JEANNE placed a call to [facility] states they only focus on mental health programs, no PT/OT. [facility] states they are not a residential. JEANNE placed a call to Kaitlynn at [facility] and left message regarding referral. SW faxed referral. Plan: SNF pending acceptance and pre-cert Kimi Saba MATERIAL CONTROLLER, TOUR BUS DRIVER/GUIDE
[2020-08-22] MEDS: hydrOXYzine PAM 25 MG Capsule 50 MG PO ×2 (14:44→21:49)
[2020-08-22] MEDS: oxyCODONE 5 MG Tablet PO ×2 (14:44→17:54)
[2020-08-22] MEDS: Doxazosin 1 MG Tablet 2 MG PO (21:48)
[2020-08-22] MEDS: Senna/Docusate Sodium 1 Tablet 2 TABLET PO (21:49)
[2020-08-22] MEDS: traZODone 100 MG Tablet 300 MG PO (21:49)
[2020-08-23 05:47] LABS: Absolute Lymphocyte Count 2.56 X10^3/uL (0.83-4.51); Absolute Neutrophil Count 5.1 X10^3/uL (2.0-7.7); Basophil# 0.03 X10^3/uL; Basophil% 0.3 % (0-1); Eosinophil# 0.21 X10^3/uL; Eosinophils% 2.4 % (0-5); Hematocrit 31.3 % (37-47); Hemoglobin 9.8 g/dL (12.0-15.0); Lymphocyte # 2.56 X10^3/ul (4.0); Lymphocyte % 28.8 % (19-41); Mean Corp Hgb Conc 31.3 g/dL (32-36); Mean Corpuscular Hgb 27.1 pg (27.0-32.0); Mean Corpuscular Volume 86.7 fL (81-99); Mean Platelet Vol. 8.9 fl (6.2-12.0); Monocyte# 0.91 X10^3/uL; Monocyte% 10.2 % (0-10); NRBC Flagged by Analyzer 0 % (0-5); Neutrophil # 5.09 X10^3/uL (2.7-7.7); Neutrophil % 57.4 % (47-70); Platelet Count 267 K/mm3 (150-450); RBC Distribution Width CV 14.2 % (11.6-14.6); RBC Distribution Width SD 45.1 fl (35.1-43.9); Red Blood Count 3.61 M/mm3 (4.2-5.4); White Blood Count 8.9 K/mm3 (4.4-11.0)
[2020-08-23 06:00] VITALS: BP 99/55; PULSE 97; RESP 16; TEMP 36.9; O2SAT 94
[2020-08-23 06:12] LABS: Anion Gap 4 (5-15); BUN 13 mg/dL (7-18); BUN/Creat Ratio 19.8 RATIO (10-20); Chloride 103 mmol/L (98-107); Creatinine, Serum 0.66 mg/dL (0.55-1.02); EST Glomerular Filtration Rate 105 mL/min (>60); Est Glom Filt Rate - Afr Amer 128 mL/min (>60); Glucose 122 mg/dL (74-106); Potassium 3.6 mmol/L (3.5-5.1); Sodium Level 138 mmol/L (136-145)
[2020-08-23] MEDS: oxyCODONE 5 MG Tablet PO (06:56)
[2020-08-23] MEDS: Senna/Docusate Sodium 1 Tablet 2 TABLET PO ×2 (08:47→20:40)
[2020-08-23] MEDS: Meloxicam 15 MG Tablet PO (08:47)
[2020-08-23] MEDS: buPROPion (XL) 150 MG TABLET.XL 450 MG PO (08:48)
[2020-08-23] MEDS: Gabapentin 300 MG Capsule PO ×3 (08:48→16:37)
[2020-08-23] MEDS: lamoTRIgine 100 MG Tablet 200 MG PO ×2 (08:48→20:41)
[2020-08-23] MEDS: Pantoprazole Sodium 20 MG Tablet PO (08:49)
[2020-08-23 09:37] VITALS: BP 102/37; PULSE 108; RESP 16; TEMP 37; O2SAT 98
--- NOTE | 2020-08-23 09:40 | CASEMGMT ---
Addendum entered by Kimi Saba 08/23/20 10:03: SW also asked pt about recent psych hospitalizations as this information is needed for PAS/RR for intermediate. Pt states it has been 6 years since she has been placed at a psych hospital. Original Note: Social Work Note SW in to speak with pt regarding discharge plans. Pt states I just woke up at 9, haven't had the chance to really look at this list. Pt states I have been so out of it the last few days, I keep getting confused, and this is a big decision. SW offered support to pt. SW informed pt that if she goes to a SNF and she doesn't like it, she can requests to transfer to a different SNF. Pt states well I don't really like change, and once I get somewhere I want to stay. SW informed pt that she is able to do so, but this worker just wanted her to know options. SW explained importance of picking a facility today so referral process can be started and pre-cert can start. Pt states well I don't feel ready to go home today. SW informed pt that she is not going home today, pt still needs an accepting SNF and still needs pre-cert which likely will not be today. Pt mentioned [facility], but states they have COVID right now and are not accepting pts. SW informed pt that she is correct on that. Pt states she may need help deciding. SW asked pt what kind of help she may need. Pt states well my phone is , I would like to look up these facilities, and I may need help looking them up. SW asked pt if she had difficulty reading, pt states I get confused. SW encouraged pt to attempt to look up the facilities on her phone and this worker can assist with that. Pt states well I don't know if I will get to it this morning, my breakfast is coming, I need to wash up. SW informed pt that she can try whenever she has time to do this morning to look up facilities but then this worker can come back later today and assist pt if she needs it. Pt states do you know anything about [place]. SW informed pt that this worker cannot make recommendations, that it just depends on people's experiences at nursing facilities. SW explained that two people can go to the same intermediate and have two completely different experiences. SW encouraged pt again to review the SNF list with providers including quality and resource use data and consistent with the patient?s preferred geographic region, medical needs, and insurance network. Pt asked if this worker knew about the activities at the facilities. SW informed pt that it is likely the facilities have activity directors, but this worker is not sure what those activities are. SW informed pt that there may be less activities right now due to COVID. SW informed pt that this worker will not call every facility to determine their activities but once pt gives this worker a few options, this worker can call and ask about activities. SW also encouraged pt to Google facilities and again state that this worker can come back later today to assist pt if needed. Pt states if she can have a decision by 4:00pm today. SW informed pt that a decision will need to be made sooner than that as referral needs to be made and pre-cert needs to be started today. Pt states she understands, but that it is a big decision. SW asked pt if her mom will be able to assist. Pt states she doesn't need to assist with this, it is my decision. SW informed pt that she is right it is her decision but explained the importance of making an actual decision. SW informed pt that this worker will be back after lunch to continue discussion of SNF as pt states she is waiting for her breakfast and would like to be washed up before looking at SNF. SW to stop back later today to speak with pt. Kimi Saba NEURO INTENSIVIST PHYSICIAN, BUHR DRESSER
[2020-08-23] MEDS: Acetaminophen 325 MG Tablet 650 MG PO (10:22)
[2020-08-23] MEDS: cycloBENZAPRine HCl 10 MG Tablet PO (10:22)
--- NOTE | 2020-08-23 10:59 | PN_ITS ---
Patient Problems: Active and Suspected Problems (Last Updated 08/20/20 @ 06:[address] Venkatesh Dan MD) Ankle fracture (Acute) Deterioration in ability to walk (Acute) Trimalleolar fracture of right ankle (Acute) Ankle pain (Acute) Fibromyalgia (Acute) Subjective: Patient seen and examined. She still complains of pain in her right foot but is much better controlled today. Her mother came to see her yesterday so patient says she is much happier. She is awaiting discharge to a group home facility. Patient wants to take her therapy cath with her and it is unclear which group home facility will accept the status patient does not have paperwork that shows that the cat is a therapy cat and not just a pet cat. He is a bit tachycardic today but he has remained hemodynamically stable otherwise. Hemoglobin is dropped to 9.8 today. Vitals/I&O's: Vital Signs Temp Pulse Resp BP Pulse Ox 98.6 F 108 H 16 102/37 L 98 08/23/20 09:37 08/23/20 09:37 08/23/20 09:37 08/23/20 09:37 08/23/20 09:37 Oxygen Flow Rate (L/min) 2 Oxygen Delivery Method Room Air Weight: 208 lb 8.917 oz Body Mass Index (BMI) 38.7 Intake and Output for Last 24 Hours 08/21/20 08/22/20 08/23/20 23:59 23:59 23:59 Intake Total 3210 / 3210 2686.25 / 2686.25 Output Total 800 / 800 2600 / 2800 400 / 400 Balance 2410 / 2410 86.25 / -113.75 -400 / -400 General: Alert, Oriented x3, Cooperative, No apparent distress HEENT: Atraumatic, PERRLA, EOMI, Normocephalic Oral: Moist Mucosa Neck: Supple, No JVD, Negative Carotid Bruits Lungs: Clear to auscultation, Normal air movement Cardiovascular: Regular rate, Normal S2, No murmurs Abdomen: Bowel Sounds Present, Soft, Non Tender Extremities: - - RLE wrapped in bandage Skin: No rashes, No breakdown Lymphatic: No Cervical, Supraclavicular, or Inguinal Adenopathy Neurological: Cranial nerves II-XII grossly intact Psych/Mental Status: Normal Affect, Appropriate, Alert and oriented to time, place, person, mood and affect Microbiology Past 72 Hours 08/20/20 09:20 Mucosa - Nose SARS-CoV-2 Antigen (Rapid) - Final Laboratory Results 08/23/20 05:35: WBC 8.9, RBC 3.61 L, Hgb 9.8 L, Hct 31.3 L, MCV 86.7, MCH 27.1, MCHC 31.3 L, RDW Std Deviation 45.1 H, RDW Coeff of Bassem 14.2, Plt Count 267, MPV 8.9, Immature Gran % (Auto) 0.900, Neut % (Auto) 57.4, Lymph % (Auto) 28.8, [place] % (Auto) 10.2 H, Eos % (Auto) 2.4, Baso % (Auto) 0.3, Absolute Neuts (auto) 5.1, Absolute Lymphs (auto) 2.56, Nucleated RBC % 0 08/23/20 05:35: Sodium 138, Potassium 3.6, Chloride 103, Carbon Dioxide 31.0, Anion Gap 4 L, BUN 13, Creatinine 0.66, Estim Creat Clear Calc 85.50, Est GFR (MDRD) Af Amer 128, Est GFR (MDRD) Non-Af 105, BUN/Creatinine Ratio 19.8, Glucose 122 H, Calcium 8.0 L Current Medications Acetaminophen (Acetaminophen 325 Mg Tablet) 650 mg PO Q6H PRN PRN PRN Reason: Pain Score 1-10/Temp > 100.7 F Last Admin: 08/23/20 10:22 Dose: 650 mg Documented by: Bupropion HCl (Bupropion (Xl) 150 Mg Tablet.Xl) 450 mg PO DAILY [facility] Last Admin: 08/23/20 08:48 Dose: 450 mg Documented by: Cyclobenzaprine HCl (Cyclobenzaprine Hcl 10 Mg Tablet) 10 mg PO TID PRN PRN PRN Reason: MS Last Admin: 08/23/20 10:22 Dose: 10 mg Documented by: Doxazosin Mesylate (Doxazosin 1 Mg Tablet) 2 mg PO QHS [facility] Last Admin: 08/22/20 21:48 Dose: 2 mg Documented by: Ergocalciferol (Ergocalciferol 50,000 Unit Capsule) 50,000 unit PO Q7D [facility] Gabapentin (Gabapentin 300 Mg Capsule) 300 mg PO TIDCM [facility] Last Admin: 08/23/20 08:48 Dose: 300 mg Documented by: Hydroxyzine Pamoate (Hydroxyzine Berenice 25 Mg Capsule) 50 mg PO 4X/DAY PRN PRN PRN Reason: ANXIETY Last Admin: 08/22/20 21:49 Dose: 50 mg Documented by: Sodium Chloride () 250 mls @ 15 mls/hr IV .[id number] PRN PRN Reason: Saline Flush Sodium Chloride () 250 mls @ 15 mls/hr IV .[id number] PRN PRN Reason: Additional IVPB Infusion Lamotrigine (Lamotrigine 100 Mg Tablet) 200 mg PO BID [facility] Last Admin: 08/23/20 08:48 Dose: 200 mg Documented by: Lorazepam (Lorazepam 1 Mg Tablet) 1 mg PO BID PRN PRN PRN Reason: ANXIETY UNRELIEVED BY VISTARIL Last Admin: 08/22/20 09:35 Dose: 1 mg Documented by: Meloxicam (Meloxicam 15 Mg Tablet) 15 mg PO BREAKFAST [facility] Last Admin: 08/23/20 08:47 Dose: 15 mg Documented by: Morphine Sulfate (Morphine 2 Mg/Ml Syringe) 2 mg IV Q4H PRN PRN PRN Reason: Pain 6-10 Last Admin: 08/22/20 06:37 Dose: 2 mg Documented by: Ondansetron HCl (Ondansetron 4 Mg/2 Ml Vial) 4 mg IV Q8H PRN PRN PRN Reason: NAUSEA/VOMITING Oxycodone HCl (Oxycodone 5 Mg Tablet) 5 mg PO Q4H PRN PRN PRN Reason: Pain Score 4-5 Last Admin: 08/23/20 06:56 Dose: 5 mg Documented by: Oxycodone HCl (Oxycodone 5 Mg Tablet) 10 mg PO Q4H PRN PRN PRN Reason: Pain Score 6-10/10 Last Admin: 08/22/20 21:49 Dose: 10 mg Documented by: Pantoprazole Sodium (Pantoprazole Sodium 20 Mg Tablet) 20 mg PO BREAKFAST [facility] Last Admin: 08/23/20 08:49 Dose: 20 mg Documented by: Polyethylene Glycol (Polyethylene Glycol 3350 17 Gm Packet) 17 gm PO DAILY PRN PRN Reason: Constipation Senna/Docusate Sodium (Senna/Docusate Sodium 1 Tablet) 2 tablet PO BID [facility] Last Admin: 08/23/20 08:47 Dose: 2 tablet Documented by: Sodium Chloride (0.9% Saline Lock 10 Ml Syringe) 10 - 40 ml IV UD PRN PRN Reason: SALINE FLUSH Last Admin: 08/22/20 06:38 Dose: 10 ml Documented by: Trazodone HCl (Trazodone 100 Mg Tablet) 300 mg PO QHS [facility] Last Admin: 08/22/20 21:49 Dose: 300 mg Documented by: STROKE Vital Signs/Narrative: Vital Signs Temp Pulse Resp BP Pulse Ox 08/23/20 09:37 98.6 F 108 H 16 102/37 L 98 Medical Necessity - Tobacco Use Smoking Status: Never smoker Assessment/Plan All Active Problems (Last Updated 08/20/20 @ 06:[address] Venkatesh Dan MD) Ankle fracture (Acute) Deterioration in ability to walk (Acute) Trimalleolar fracture of right ankle (Acute) Ankle pain (Acute) Fibromyalgia (Acute) #Right ankle fracture with dislocation * Podiatry on board. * today is POD 2 for right ankle ORIF * On IV morphine as needed for pain as well as acetaminophen and meloxicam and oxycodone * PT OT on board. * fall precautions * #Fibromyalgia and PTSD * stable * DVT prophylaxis: lovenox 40mg daily Disposition: awaiting placement in SNF OBSV E&M: 74910 Subsequent observation care L2
--- NOTE | 2020-08-23 11:10 | CASEMGMT ---
Addendum entered by Kimi Saba 08/23/20 16:27: SW leaving for the day. SW updated pt that this worker is still waiting to hear from [facility]. SW asked pt about disability income as this is needed for PAS/RR. Pt states she receives SSI and SS income, pt states the qualifying diagnosis is due to mental health. SW will follow up with [facility] Tomorrow regarding referral. Pt will need PAS/RR for SNF placement, and pt will likely trip the screen. Addendum entered by Kimi Saba 08/23/20 15:08: SW hasn't heard anything from [facility] yet. JEANNE placed a call to Herminia at [facility], Herminia states she got referral, sent it off to the team to review. Herminia to let this worker know if they can accept pt or not. SW waiting for call back from [employer]. Original Note: Social Work Note Pt requesting to speak to this worker. SW in to speak with pt. Pt states she called her crime analyst friend and her choices for SNF are 1: [facility] 2: [place] [facility] 3. [facility]. JEANNE explained referrals will be sent, SW will update pt once facility is able to accept. SW informed pt pre-cert will need to be obtained, will likely not be today. Pt states understanding. JEANNE placed a call to [employer] at [facility] and left message regarding referral. SW faxed referral to [facility]. Plan: SNF pending acceptance and pre-cert Kimi Saba SPEECH THERAPY TEACHER, REGIONAL MERCHANDISING MANAGER
[2020-08-23] MEDS: oxyCODONE 5 MG Tablet 10 MG PO ×3 (11:21→20:40)
[2020-08-23] MEDS: Enoxaparin 40 MG/0.4 ML Syringe SC (11:24)
[2020-08-23 11:48] VITALS: BP 121/64; PULSE 109; RESP 16; TEMP 36.8; O2SAT 100
--- NOTE | 2020-08-23 12:17 | PN_ITS ---
Patient Problems: Active and Suspected Problems (Last Updated 08/20/20 @ 06:[address] Venkatesh Dan MD) Ankle fracture (Acute) Deterioration in ability to walk (Acute) Trimalleolar fracture of right ankle (Acute) Ankle pain (Acute) Fibromyalgia (Acute) Subjective: Patient resting comfortably in bed, pain appears controlled at this time to the right ankle. No complains of fever, chills, nausea, vomiting, calf pain, chest pain or shortness of breath. - Physical Exam Vitals/I&O's: Vital Signs Temp Pulse Resp BP Pulse Ox 98.1 F 108 H 16 111/74 97 08/23/20 14:24 08/23/20 14:24 08/23/20 14:24 08/23/20 14:24 08/23/20 14:24 Oxygen Flow Rate (L/min) 2 Oxygen Delivery Method Room Air Weight: 94.6 kg Body Mass Index (BMI) 38.7 Intake and Output for Last 24 Hours 08/21/20 08/22/20 08/23/20 23:59 23:59 23:59 Intake Total 3210 / 3210 2686.25 / 2686.25 400 / 400 Output Total 800 / 800 2600 / 2800 1100 / 1100 Balance 2410 / 2410 86.25 / -113.75 -700 / -700 General: Alert, Oriented x3, Cooperative, No apparent distress Extremities: Capillary Refill Less than 3 Seconds, No Calf Tenderness, - - Dressing/splint right foot/ankle is clean, dry and intact with no strikethrough, patient able to move toes dorsiflexion and plantarflexion, sensation intact to the foot, no suspicion of infection or DVT at this time. Psych/Mental Status: Normal Affect, Appropriate Laboratory Results 08/23/20 05:35: WBC 8.9, RBC 3.61 L, Hgb 9.8 L, Hct 31.3 L, MCV 86.7, MCH 27.1, MCHC 31.3 L, RDW Std Deviation 45.1 H, RDW Coeff of Bassem 14.2, Plt Count 267, MPV 8.9, Immature Gran % (Auto) 0.900, Neut % (Auto) 57.4, Lymph % (Auto) 28.8, [place] % (Auto) 10.2 H, Eos % (Auto) 2.4, Baso % (Auto) 0.3, Absolute Neuts (auto) 5.1, Absolute Lymphs (auto) 2.56, Nucleated RBC % 0 08/23/20 05:35: Sodium 138, Potassium 3.6, Chloride 103, Carbon Dioxide 31.0, Anion Gap 4 L, BUN 13, Creatinine 0.66, Estim Creat Clear Calc 85.50, Est GFR (MDRD) Af Amer 128, Est GFR (MDRD) Non-Af 105, BUN/Creatinine Ratio 19.8, Glucose 122 H, Calcium 8.0 L Current Medications Acetaminophen (Acetaminophen 325 Mg Tablet) 650 mg PO Q6H PRN PRN PRN Reason: Pain Score 1-10/Temp > 100.7 F Last Admin: 08/23/20 10:22 Dose: 650 mg Documented by: Bupropion HCl (Bupropion (Xl) 150 Mg Tablet.Xl) 450 mg PO DAILY [facility] Last Admin: 08/23/20 08:48 Dose: 450 mg Documented by: Cyclobenzaprine HCl (Cyclobenzaprine Hcl 10 Mg Tablet) 10 mg PO TID PRN PRN PRN Reason: MS Last Admin: 08/23/20 10:22 Dose: 10 mg Documented by: Doxazosin Mesylate (Doxazosin 1 Mg Tablet) 2 mg PO QHS [facility] Last Admin: 08/22/20 21:48 Dose: 2 mg Documented by: Enoxaparin Sodium (Enoxaparin 40 Mg/0.4 Ml Syringe) 40 mg SC DAILY [facility] Last Admin: 08/23/20 11:24 Dose: 40 mg Documented by: Ergocalciferol (Ergocalciferol 50,000 Unit Capsule) 50,000 unit PO Q7D [facility] Last Admin: 08/23/20 11:24 Dose: 50,000 unit Documented by: Gabapentin (Gabapentin 300 Mg Capsule) 300 mg PO TIDCM [facility] Last Admin: 08/23/20 16:37 Dose: 300 mg Documented by: Hydroxyzine Pamoate (Hydroxyzine Berenice 25 Mg Capsule) 50 mg PO 4X/DAY PRN PRN PRN Reason: ANXIETY Last Admin: 08/22/20 21:49 Dose: 50 mg Documented by: Sodium Chloride () 250 mls @ 15 mls/hr IV .[id number] PRN PRN Reason: Saline Flush Sodium Chloride () 250 mls @ 15 mls/hr IV .[id number] PRN PRN Reason: Additional IVPB Infusion Lamotrigine (Lamotrigine 100 Mg Tablet) 200 mg PO BID [facility] Last Admin: 08/23/20 08:48 Dose: 200 mg Documented by: Lorazepam (Lorazepam 1 Mg Tablet) 1 mg PO BID PRN PRN PRN Reason: ANXIETY UNRELIEVED BY VISTARIL Last Admin: 08/22/20 09:35 Dose: 1 mg Documented by: Meloxicam (Meloxicam 15 Mg Tablet) 15 mg PO BREAKFAST [facility] Last Admin: 08/23/20 08:47 Dose: 15 mg Documented by: Morphine Sulfate (Morphine 2 Mg/Ml Syringe) 2 mg IV Q4H PRN PRN PRN Reason: Pain 6-10 Last Admin: 08/23/20 14:07 Dose: 2 mg Documented by: Ondansetron HCl (Ondansetron 4 Mg/2 Ml Vial) 4 mg IV Q8H PRN PRN PRN Reason: NAUSEA/VOMITING Oxycodone HCl (Oxycodone 5 Mg Tablet) 5 mg PO Q4H PRN PRN PRN Reason: Pain Score 4-5 Last Admin: 08/23/20 06:56 Dose: 5 mg Documented by: Oxycodone HCl (Oxycodone 5 Mg Tablet) 10 mg PO Q4H PRN PRN PRN Reason: Pain Score 6-10/10 Last Admin: 08/23/20 16:37 Dose: 10 mg Documented by: Pantoprazole Sodium (Pantoprazole Sodium 20 Mg Tablet) 20 mg PO BREAKFAST [facility] Last Admin: 08/23/20 08:49 Dose: 20 mg Documented by: Polyethylene Glycol (Polyethylene Glycol 3350 17 Gm Packet) 17 gm PO DAILY PRN PRN Reason: Constipation Senna/Docusate Sodium (Senna/Docusate Sodium 1 Tablet) 2 tablet PO BID [facility] Last Admin: 08/23/20 08:47 Dose: 2 tablet Documented by: Sodium Chloride (0.9% Saline Lock 10 Ml Syringe) 10 - 40 ml IV UD PRN PRN Reason: SALINE FLUSH Last Admin: 08/22/20 06:38 Dose: 10 ml Documented by: Trazodone HCl (Trazodone 100 Mg Tablet) 300 mg PO QHS [facility] Last Admin: 08/22/20 21:49 Dose: 300 mg Documented by: Medical Necessity - Tobacco Use Smoking Status: Never smoker Assessment/Plan All Active Problems (Last Updated 08/20/20 @ 06:[address] Venkatesh Dan MD) Ankle fracture (Acute) Deterioration in ability to walk (Acute) Trimalleolar fracture of right ankle (Acute) Ankle pain (Acute) Fibromyalgia (Acute) Tri malleolus right ankle fracture is post ORIF 08/21/2020 Right ankle pain Fibromyalgia History of chronic ankle sprains Hypovitaminosis D Patient seen and examined bedside. Post op course appropriate at this time, no evidence of complication at this time. Keep dressing/splint clean, dry and intact right foot/ankle. No weightbearing right foot, keep foot elevated. Continue with pain management, as well as vitamin D supplementation as ordered. DVT Prophylaxis: Lovenox 40mg subcutanous once daily. Discharge Planning: To nursing facility once approved by insurance. Podiatry will continue to follow please contact if any questions or concerns. Note: patient requested I discuss the above with her mother which I did today.
[2020-08-23] MEDS: Morphine 2 MG/ML Syringe IV (14:07)
[2020-08-23 14:24] VITALS: BP 111/74; PULSE 108; RESP 16; TEMP 36.7; O2SAT 97
[2020-08-23] MEDS: hydrOXYzine PAM 25 MG Capsule 50 MG PO (20:40)
[2020-08-23] MEDS: traZODone 100 MG Tablet 300 MG PO (20:40)
[2020-08-23 20:41] VITALS: BP 121/65; PULSE 104; RESP 16; TEMP 36.7; O2SAT 97
[2020-08-23] MEDS: Doxazosin 1 MG Tablet 2 MG PO (20:41)
[2020-08-23] MEDS: LORazepam 1 MG Tablet PO (23:13)
[2020-08-24 03:39] VITALS: BP 110/59; PULSE 98; RESP 16; TEMP 37.2; O2SAT 99
[2020-08-24 06:42] LABS: Absolute Lymphocyte Count 2.56 X10^3/uL (0.83-4.51); Absolute Neutrophil Count 4.1 X10^3/uL (2.0-7.7); Basophil# 0.04 X10^3/uL; Basophil% 0.5 % (0-1); Eosinophil# 0.17 X10^3/uL; Eosinophils% 2.2 % (0-5); Hematocrit 30.2 % (37-47); Hemoglobin 9.4 g/dL (12.0-15.0); Lymphocyte # 2.56 X10^3/ul (4.0); Lymphocyte % 33.5 % (19-41); Mean Corp Hgb Conc 31.1 g/dL (32-36); Mean Corpuscular Hgb 27.2 pg (27.0-32.0); Mean Corpuscular Volume 87.5 fL (81-99); Mean Platelet Vol. 8.7 fl (6.2-12.0); Monocyte# 0.74 X10^3/uL; Monocyte% 9.7 % (0-10); NRBC Flagged by Analyzer 0 % (0-5); Neutrophil # 4.05 X10^3/uL (2.7-7.7); Neutrophil % 53.1 % (47-70); Platelet Count 279 K/mm3 (150-450); RBC Distribution Width CV 14.1 % (11.6-14.6); RBC Distribution Width SD 45.2 fl (35.1-43.9); Red Blood Count 3.45 M/mm3 (4.2-5.4); White Blood Count 7.6 K/mm3 (4.4-11.0)
[2020-08-24] MEDS: oxyCODONE 5 MG Tablet 10 MG PO ×4 (06:50→21:50)
[2020-08-24 07:17] LABS: Anion Gap 2 (5-15); BUN 16 mg/dL (7-18); BUN/Creat Ratio 25.4 RATIO (10-20); Chloride 105 mmol/L (98-107); Creatinine, Serum 0.63 mg/dL (0.55-1.02); EST Glomerular Filtration Rate 111 mL/min (>60); Est Glom Filt Rate - Afr Amer 134 mL/min (>60); Estimated Creatinine Clearance 89.57 ml/min; Glucose 103 mg/dL (74-106); Potassium 4.1 mmol/L (3.5-5.1); Sodium Level 139 mmol/L (136-145)
[2020-08-24 09:00] VITALS: BP 115/68; PULSE 97; RESP 18; TEMP 36.9; O2SAT 98
[2020-08-24] MEDS: Acetaminophen 325 MG Tablet 650 MG PO (09:02)
[2020-08-24] MEDS: lamoTRIgine 100 MG Tablet 200 MG PO ×2 (09:03→21:49)
[2020-08-24] MEDS: Meloxicam 15 MG Tablet PO (09:03)
[2020-08-24] MEDS: Gabapentin 300 MG Capsule PO ×3 (09:03→17:47)
[2020-08-24] MEDS: Pantoprazole Sodium 20 MG Tablet PO (09:03)
[2020-08-24] MEDS: Senna/Docusate Sodium 1 Tablet 2 TABLET PO ×2 (09:04→21:49)
[2020-08-24] MEDS: buPROPion (XL) 150 MG TABLET.XL 450 MG PO (09:04)
--- NOTE | 2020-08-24 09:05 | CASEMGMT ---
Addendum entered by Kimi Saba 08/24/20 12:48: SW placed a call to [facility] regarding referral. SW spoke with Shakira. Shakira states admissions is out today. SW asked if there was anyone covering referrals. Shakira states she spoke with Kaity, the DON, who hasn't had a chance to review referral and to have this worker call back tomorrow regarding referral. JEANNE went a head and placed a call to Isabell at [facility] and provided referral as [facility] is pt's third choice. SW faxed referral to [facility]. Original Note: Social Work Note SW received message from Herminia at [facility] stating they only like to take pt's that are 60 and above, and the team feels that pt will need rn long term care care and they are unable to provide that at this time, [facility] is not able to accept pt. JEANNE faxed referral to [facility] as this was pt's second choice. Plan: SNF pending acceptance and pre-cert Kimi Saba CONTACT CENTER ASSOCIATE, AIRWORTHINESS SAFETY INSPECTOR
[2020-08-24] MEDS: Enoxaparin 40 MG/0.4 ML Syringe SC (09:06)
[2020-08-24] MEDS: cycloBENZAPRine HCl 10 MG Tablet PO (09:09)
[2020-08-24] MEDS: hydrOXYzine PAM 25 MG Capsule 50 MG PO ×3 (10:20→23:15)
--- NOTE | 2020-08-24 11:02 | PCM.PN.HOSP ---
Patient Problems: Active and Suspected Problems (Last Updated 08/20/20 @ 06:[address] Venkatesh Dan MD) Ankle fracture (Acute) Deterioration in ability to walk (Acute) Trimalleolar fracture of right ankle (Acute) Ankle pain (Acute) Fibromyalgia (Acute) Subjective: Patient seen and examined. She complained of pain in her right lower extremity which she attributed to therapy. Patient also said she was sad because she had been told her bone density was low; she says it is low because of her eating disorder, and she is really sad because she cannot get any help for her eating disorder as most centers she has contacted dont take her insurance; she is therefore worried she may from this. Review of systems otherwise negative. She is now awaiting placement. Vitals/I&O's: Vital Signs Temp Pulse Resp BP Pulse Ox 98.4 F 97 18 115/68 98 08/24/20 09:00 08/24/20 09:00 08/24/20 09:00 08/24/20 09:00 08/24/20 09:00 Oxygen Flow Rate (L/min) 2 Oxygen Delivery Method Room Air Weight: 208 lb 8.917 oz Body Mass Index (BMI) 38.7 Intake and Output for Last 24 Hours 08/22/20 08/23/20 08/24/20 23:59 23:59 23:59 Intake Total 2686.25 / 2686.25 1050 / 1550 500 / 500 Output Total 2600 / 2800 1100 / 1400 600 / 600 Balance 86.25 / -113.75 -50 / 150 -100 / -100 General: Alert, Oriented x3, Cooperative, No apparent distress HEENT: Atraumatic, PERRLA, EOMI, Normocephalic Oral: Moist Mucosa Neck: Supple, No JVD, Negative Carotid Bruits Lungs: Clear to auscultation, Normal air movement Cardiovascular: Regular rate, Normal S2, No murmurs Abdomen: Bowel Sounds Present, Soft, Non Tender Extremities: - - RLE wrapped in bandage Skin: No rashes, No breakdown Lymphatic: No Cervical, Supraclavicular, or Inguinal Adenopathy Neurological: Cranial nerves II-XII grossly intact Psych/Mental Status: Normal Affect, Appropriate, Alert and oriented to time, place, person, mood and affect Laboratory Results 08/24/20 06:32: WBC 7.6, RBC 3.45 L, Hgb 9.4 L, Hct 30.2 L, MCV 87.5, MCH 27.2, MCHC 31.1 L, RDW Std Deviation 45.2 H, RDW Coeff of Bassem 14.1, Plt Count 279, MPV 8.7, Immature Gran % (Auto) 1.000 H, Neut % (Auto) 53.1, Lymph % (Auto) 33.5, [place] % (Auto) 9.7, Eos % (Auto) 2.2, Baso % (Auto) 0.5, Absolute Neuts (auto) 4.1, Absolute Lymphs (auto) 2.56, Nucleated RBC % 0 08/24/20 06:32: Sodium 139, Potassium 4.1, Chloride 105, Carbon Dioxide 32.0, Anion Gap 2 L, BUN 16, Creatinine 0.63, Estim Creat Clear Calc 89.57, Est GFR (MDRD) Af Amer 134, Est GFR (MDRD) Non-Af 111, BUN/Creatinine Ratio 25.4 H, Glucose 103, Calcium 8.0 L Diagnostic Data Lower Extremity CT 08/20/20 12:16 Ankle X-Ray 08/21/20 19:35 IMPRESSION: Grossly satisfactory appearance of distal tibial and fibular fractures status post ORIF. Electronically Signed: Oswaldo Schmitt MD at 20:53 EST , Service support , Current Medications Acetaminophen (Acetaminophen 325 Mg Tablet) 650 mg PO Q6H PRN PRN PRN Reason: Pain Score 1-10/Temp > 100.7 F Last Admin: 08/24/20 09:02 Dose: 650 mg Documented by: Bupropion HCl (Bupropion (Xl) 150 Mg Tablet.Xl) 450 mg PO DAILY [facility] Last Admin: 08/24/20 09:04 Dose: 450 mg Documented by: Cyclobenzaprine HCl (Cyclobenzaprine Hcl 10 Mg Tablet) 10 mg PO TID PRN PRN PRN Reason: MS Last Admin: 08/24/20 09:09 Dose: 10 mg Documented by: Doxazosin Mesylate (Doxazosin 1 Mg Tablet) 2 mg PO QHS [facility] Last Admin: 08/23/20 20:41 Dose: 2 mg Documented by: Enoxaparin Sodium (Enoxaparin 40 Mg/0.4 Ml Syringe) 40 mg SC DAILY [facility] Last Admin: 08/24/20 09:06 Dose: 40 mg Documented by: Ergocalciferol (Ergocalciferol 50,000 Unit Capsule) 50,000 unit PO Q7D [facility] Last Admin: 08/23/20 11:24 Dose: 50,000 unit Documented by: Gabapentin (Gabapentin 300 Mg Capsule) 300 mg PO TIDCM [facility] Last Admin: 08/24/20 09:03 Dose: 300 mg Documented by: Hydroxyzine Pamoate (Hydroxyzine Berenice 25 Mg Capsule) 50 mg PO 4X/DAY PRN PRN PRN Reason: ANXIETY Last Admin: 08/24/20 10:20 Dose: 50 mg Documented by: Sodium Chloride () 250 mls @ 15 mls/hr IV .[id number] PRN PRN Reason: Saline Flush Sodium Chloride () 250 mls @ 15 mls/hr IV .[id number] PRN PRN Reason: Additional IVPB Infusion Lamotrigine (Lamotrigine 100 Mg Tablet) 200 mg PO BID [facility] Last Admin: 08/24/20 09:03 Dose: 200 mg Documented by: Lorazepam (Lorazepam 1 Mg Tablet) 1 mg PO BID PRN PRN PRN Reason: ANXIETY UNRELIEVED BY VISTARIL Last Admin: 08/23/20 23:13 Dose: 1 mg Documented by: Meloxicam (Meloxicam 15 Mg Tablet) 15 mg PO BREAKFAST [facility] Last Admin: 08/24/20 09:03 Dose: 15 mg Documented by: Morphine Sulfate (Morphine 2 Mg/Ml Syringe) 2 mg IV Q4H PRN PRN PRN Reason: Pain 6-10 Last Admin: 08/23/20 14:07 Dose: 2 mg Documented by: Ondansetron HCl (Ondansetron 4 Mg/2 Ml Vial) 4 mg IV Q8H PRN PRN PRN Reason: NAUSEA/VOMITING Oxycodone HCl (Oxycodone 5 Mg Tablet) 5 mg PO Q4H PRN PRN PRN Reason: Pain Score 4-5 Last Admin: 08/23/20 06:56 Dose: 5 mg Documented by: Oxycodone HCl (Oxycodone 5 Mg Tablet) 10 mg PO Q4H PRN PRN PRN Reason: Pain Score 6-10/10 Last Admin: 08/24/20 10:58 Dose: 10 mg Documented by: Pantoprazole Sodium (Pantoprazole Sodium 20 Mg Tablet) 20 mg PO BREAKFAST [facility] Last Admin: 08/24/20 09:03 Dose: 20 mg Documented by: Polyethylene Glycol (Polyethylene Glycol 3350 17 Gm Packet) 17 gm PO DAILY PRN PRN Reason: Constipation Senna/Docusate Sodium (Senna/Docusate Sodium 1 Tablet) 2 tablet PO BID [facility] Last Admin: 08/24/20 09:04 Dose: 2 tablet Documented by: Sodium Chloride (0.9% Saline Lock 10 Ml Syringe) 10 - 40 ml IV UD PRN PRN Reason: SALINE FLUSH Last Admin: 08/22/20 06:38 Dose: 10 ml Documented by: Trazodone HCl (Trazodone 100 Mg Tablet) 300 mg PO QHS [facility] Last Admin: 08/23/20 20:40 Dose: 300 mg Documented by: STROKE Vital Signs/Narrative: Vital Signs Temp Pulse Resp BP Pulse Ox 08/24/20 09:00 98.4 F 97 18 115/68 98 Medical Necessity - Tobacco Use Smoking Status: Never smoker Assessment/Plan All Active Problems (Last Updated 08/20/20 @ 06:[address] Venkatesh Dan MD) Ankle fracture (Acute) Deterioration in ability to walk (Acute) Trimalleolar fracture of right ankle (Acute) Ankle pain (Acute) Fibromyalgia (Acute) #Right ankle fracture with dislocation Podiatry on board. today is POD 3 for right ankle ORIF On IV morphine as needed for pain as well as acetaminophen and meloxicam and oxycodone PT OT on board. fall precautions #Fibromyalgia and PTSD stable #Vitamin D deficiency: on vitamin D supplementation 50,000 q7d. #Depression and anxiety: on wellbutrin and trazodone DVT prophylaxis: lovenox 40mg daily Disposition: awaiting placement in SNF Inpatient E&M: 56727 Subs Hosp L2
--- NOTE | 2020-08-24 13:24 | CASEMGMT ---
Social Work Note JEANNE placed a call to PAS/RR determination unit at [facility] and left message asking if once PAS/RR is submitted if a categorical determination could be determined for pt as medically pt is ready for discharge once a facility is able to accept pt and once pre-cert is obtained. JEANNE waiting for call back. JEANNE received call from Gilma at [facility] stating all requests are processed in [facility] system and she states there is a place on the PAS/RR that this worker can kee emergent for request. Gilma suggests that once PAS/RR is submitted to call [facility] and update them on pt. [facility] number [phone]. JEANNE updated Gilma that this worker is just waiting for SNF to accept pt and then PAS/RR will be submitted. Kimi Saba BOTTLING MACHINE OPERATOR, RAILROAD SIGNAL AND SWITCH OPERATOR
--- NOTE | 2020-08-24 14:26 | CASEMGMT ---
Addendum entered by Kimi Saba 08/24/20 15:39: JEANNE placed a call to [facility] PAS/RR department and spoke with Shakira. JEANNE asked Shakira if this worker could go ahead and submit PAS/RR with the one mcc that will accept pt and asked Shakira if the mcc were to change if that would affect the PAS/RR. Shakira states it doesn't matter the name of the mcc. Shakira states if PAS/RR is submitted with one mcc and pt goes to a different one then the PAS/RR and results will just need to be sent to the mcc pt ends up at. JEANNE placed a call to Isabell at [facility] and updated her that PAS/RR was submitted with [facility] but informed Isabell that pt wants to hear back from [facility] first. Isabell states understanding. JEANNE placed a call to [facility] and left message requesting pt's request be emergent as pt is medically ready to discharge from [facility]. Plan: SNF, [facility] will need to provide approval for SNF due to pt's Mental Health Hx. Pt will need approval from [facility] before pt can discharge from [facility]. Original Note: Social Work Note JEANNE received call from Isabell at [facility] stating [facility] is able to accept pt as long as pt knows she is not able to take her cat. JEANNE updated Isabell that pt is in observation states so PAS/RR will need to be submitted and pt is going to trip the screen so pt will need to remain at [facility] until approval from [facility] is received. Isabell states pt's insurance is still waiving pre-certs. JEANNE in to speak with pt. JEANNE updated pt that [facility] is not able to accept pt so referrals were sent to both [facility] and [facility]. JEANNE updated pt that admissions at [facility] is not in today, requested this worker to call back tomorrow. JEANNE did update pt that [facility] is able to accept and asked pt if process to get pt to [facility] could be started with insurance. Pt states she would like to know if [facility] is able to accept pt first. SW asked pt that if [facility] is not able to accept pt, then pt would be ok with [facility] still and pt confirms. Kimi Saba CONCRETE PAVING SUPERVISOR, SEARCH COORDINATOR
--- NOTE | 2020-08-24 14:33 | CHAPLAIN ---
Type of Pastoral Visit _x__ Initial Visit ___ Follow-up Visit ___ On-call Visit ___ General Patient Visit ___ Spiritual Assessment ___ Family Conference ___ Bereavement ___ Rapid Response ___ Code Blue ___ Other (describe below) Pastoral Care Referral From _x__ Patient ___ Family ___ Nurse ___ Physician ___ Wildlife Officer ___ Home Health Care Physician ___ Other (describe below) Sacrament/Intervention _x__ Active listening ___ Anointing ___ Methodist ___ Bereavement ___ Communion ___ Yissel exploration ___ _x__ Life review _x__ Prayer ___ Reconciliation ___ Sacrament of Sick _x__ Supportive presence ___ Wedding ___ Other (describe below) Pastoral Comments patient states she is tired but willing to have a visit; patient then gives details about her injury and recovery process; pt states that she has other issues that are more shelter; pt continues conversation with her feelings about going to an SNF, about her dream job 'if she could do whatever she wants', and her life in general; pt says that she would like this aviation safety equipment technician to pray for her; pt receives her lunch but asks this aviation safety equipment technician to stay and talk with her more; pt says that she is social and I need to be social; pt asks this aviation safety equipment technician to come see her another time for a visit
[2020-08-24 15:00] VITALS: BP 114/55; PULSE 102; RESP 18; TEMP 36.7; O2SAT 98
--- NOTE | 2020-08-24 16:24 | PCM.PROGNOTE ---
Patient Problems: Active and Suspected Problems (Last Updated 08/20/20 @ 06:[address] Venkatesh Dan MD) Ankle fracture (Acute) Deterioration in ability to walk (Acute) Trimalleolar fracture of right ankle (Acute) Ankle pain (Acute) Fibromyalgia (Acute) Subjective: Patient was seen today for follow up right ankle fx ORIF. She relates she has had a lot of anxiety today, worried about which nursing facility her insurance is going to approve. Patient afebrile. No fever, no chills, no nausea or vomiting. - Physical Exam Vitals/I&O's: Vital Signs Temp Pulse Resp BP Pulse Ox 98.1 F 102 H 18 114/55 L 98 08/24/20 15:00 08/24/20 15:00 08/24/20 15:00 08/24/20 15:00 08/24/20 15:00 Oxygen Flow Rate (L/min) 2 Oxygen Delivery Method Room Air Weight: 94.6 kg Body Mass Index (BMI) 38.7 Intake and Output for Last 24 Hours 08/22/20 08/23/20 08/24/20 23:59 23:59 23:59 Intake Total 2686.25 / 2686.25 1050 / 1550 1000 / 1000 Output Total 2600 / 2800 1100 / 1400 600 / 600 Balance 86.25 / -113.75 -50 / 150 400 / 400 General: Alert, Oriented x3, Cooperative Extremities: - - Dressing/splint right foot/ankle is clean, dry and intact with no strikethrough, patient able to move toes dorsiflexion and plantarflexion, sensation intact to the foot, no suspicion of infection or DVT at this time. Laboratory Results 08/24/20 06:32: WBC 7.6, RBC 3.45 L, Hgb 9.4 L, Hct 30.2 L, MCV 87.5, MCH 27.2, MCHC 31.1 L, RDW Std Deviation 45.2 H, RDW Coeff of Bassem 14.1, Plt Count 279, MPV 8.7, Immature Gran % (Auto) 1.000 H, Neut % (Auto) 53.1, Lymph % (Auto) 33.5, [place] % (Auto) 9.7, Eos % (Auto) 2.2, Baso % (Auto) 0.5, Absolute Neuts (auto) 4.1, Absolute Lymphs (auto) 2.56, Nucleated RBC % 0 08/24/20 06:32: Sodium 139, Potassium 4.1, Chloride 105, Carbon Dioxide 32.0, Anion Gap 2 L, BUN 16, Creatinine 0.63, Estim Creat Clear Calc 89.57, Est GFR (MDRD) Af Amer 134, Est GFR (MDRD) Non-Af 111, BUN/Creatinine Ratio 25.4 H, Glucose 103, Calcium 8.0 L Current Medications Acetaminophen (Acetaminophen 325 Mg Tablet) 650 mg PO Q6H PRN PRN PRN Reason: Pain Score 1-10/Temp > 100.7 F Last Admin: 08/24/20 09:02 Dose: 650 mg Documented by: Bupropion HCl (Bupropion (Xl) 150 Mg Tablet.Xl) 450 mg PO DAILY [facility] Last Admin: 08/24/20 09:04 Dose: 450 mg Documented by: Cyclobenzaprine HCl (Cyclobenzaprine Hcl 10 Mg Tablet) 10 mg PO TID PRN PRN PRN Reason: MS Last Admin: 08/24/20 09:09 Dose: 10 mg Documented by: Doxazosin Mesylate (Doxazosin 1 Mg Tablet) 2 mg PO QHS [facility] Last Admin: 08/23/20 20:41 Dose: 2 mg Documented by: Enoxaparin Sodium (Enoxaparin 40 Mg/0.4 Ml Syringe) 40 mg SC DAILY [facility] Last Admin: 08/24/20 09:06 Dose: 40 mg Documented by: Ergocalciferol (Ergocalciferol 50,000 Unit Capsule) 50,000 unit PO Q7D [facility] Last Admin: 08/23/20 11:24 Dose: 50,000 unit Documented by: Gabapentin (Gabapentin 300 Mg Capsule) 300 mg PO TIDCM [facility] Last Admin: 08/24/20 12:08 Dose: 300 mg Documented by: Hydroxyzine Pamoate (Hydroxyzine Berenice 25 Mg Capsule) 50 mg PO 4X/DAY PRN PRN PRN Reason: ANXIETY Last Admin: 08/24/20 10:20 Dose: 50 mg Documented by: Sodium Chloride () 250 mls @ 15 mls/hr IV .[id number] PRN PRN Reason: Saline Flush Sodium Chloride () 250 mls @ 15 mls/hr IV .[id number] PRN PRN Reason: Additional IVPB Infusion Lamotrigine (Lamotrigine 100 Mg Tablet) 200 mg PO BID [facility] Last Admin: 08/24/20 09:03 Dose: 200 mg Documented by: Lorazepam (Lorazepam 1 Mg Tablet) 1 mg PO BID PRN PRN PRN Reason: ANXIETY UNRELIEVED BY VISTARIL Last Admin: 08/23/20 23:13 Dose: 1 mg Documented by: Meloxicam (Meloxicam 15 Mg Tablet) 15 mg PO BREAKFAST [facility] Last Admin: 08/24/20 09:03 Dose: 15 mg Documented by: Morphine Sulfate (Morphine 2 Mg/Ml Syringe) 2 mg IV Q4H PRN PRN PRN Reason: Pain 6-10 Last Admin: 08/23/20 14:07 Dose: 2 mg Documented by: Ondansetron HCl (Ondansetron 4 Mg/2 Ml Vial) 4 mg IV Q8H PRN PRN PRN Reason: NAUSEA/VOMITING Oxycodone HCl (Oxycodone 5 Mg Tablet) 5 mg PO Q4H PRN PRN PRN Reason: Pain Score 4-5 Last Admin: 08/23/20 06:56 Dose: 5 mg Documented by: Oxycodone HCl (Oxycodone 5 Mg Tablet) 10 mg PO Q4H PRN PRN PRN Reason: Pain Score 6-10/10 Last Admin: 08/24/20 15:31 Dose: 10 mg Documented by: Pantoprazole Sodium (Pantoprazole Sodium 20 Mg Tablet) 20 mg PO BREAKFAST [facility] Last Admin: 08/24/20 09:03 Dose: 20 mg Documented by: Polyethylene Glycol (Polyethylene Glycol 3350 17 Gm Packet) 17 gm PO DAILY PRN PRN Reason: Constipation Senna/Docusate Sodium (Senna/Docusate Sodium 1 Tablet) 2 tablet PO BID [facility] Last Admin: 08/24/20 09:04 Dose: 2 tablet Documented by: Sodium Chloride (0.9% Saline Lock 10 Ml Syringe) 10 - 40 ml IV UD PRN PRN Reason: SALINE FLUSH Last Admin: 08/22/20 06:38 Dose: 10 ml Documented by: Trazodone HCl (Trazodone 100 Mg Tablet) 300 mg PO QHS [facility] Last Admin: 08/23/20 20:40 Dose: 300 mg Documented by: Medical Necessity - Tobacco Use Smoking Status: Never smoker Assessment/Plan All Active Problems (Last Updated 08/20/20 @ 06:[address] Venkatesh Dan MD) Ankle fracture (Acute) Deterioration in ability to walk (Acute) Trimalleolar fracture of right ankle (Acute) Ankle pain (Acute) Fibromyalgia (Acute) Tri malleolus right ankle fracture is post ORIF 08/21/2020 Right ankle pain Fibromyalgia History of chronic ankle sprains Hypovitaminosis D Anxiety/psych conditions Patient seen and examined bedside. Post op course appropriate at this time. Keep dressing/splint clean, dry and intact right foot/ankle. No weightbearing right foot, keep foot elevated. Continue with pain management, as well as vitamin D supplementation as ordered. DVT Prophylaxis: Lovenox 40mg subcutaneous once daily. Discharge Planning: To nursing facility once approved by insurance. Podiatry will continue to follow please contact if any questions or concerns. Of note, she was very anxious upon entering room, however after discussing with her today we will continue to follow her and help her with her along with her foot/ankle to help optimize healing, she related she felt a lot better and was resting comfortably in bed.
--- NOTE | 2020-08-24 18:56 | NURSING ---
reviewed and agree with documentation by CASI Sam
[2020-08-24 21:44] VITALS: BP 113/69; PULSE 96; RESP 18; TEMP 36.9; O2SAT 99
[2020-08-24] MEDS: traZODone 100 MG Tablet 300 MG PO (21:48)
[2020-08-24] MEDS: Doxazosin 1 MG Tablet 2 MG PO (21:48)
[2020-08-25] MEDS: LORazepam 1 MG Tablet PO (00:05)
[2020-08-25] MEDS: cycloBENZAPRine HCl 10 MG Tablet PO (00:05)
[2020-08-25 02:27] VITALS: BP 126/84; PULSE 101; RESP 18; TEMP 36.8; O2SAT 99
[2020-08-25] MEDS: oxyCODONE 5 MG Tablet 10 MG PO ×3 (02:33→20:36)
[2020-08-25] MEDS: Morphine 2 MG/ML Syringe IV ×2 (06:26→16:04)
[2020-08-25] MEDS: 0.9% Saline Lock 10 ML Syringe IV ×2 (06:27→16:09)
[2020-08-25 07:04] LABS: Absolute Lymphocyte Count 2.36 X10^3/uL (0.83-4.51); Absolute Neutrophil Count 5.7 X10^3/uL (2.0-7.7); Basophil# 0.06 X10^3/uL; Basophil% 0.6 % (0-1); Eosinophil# 0.21 X10^3/uL; Eosinophils% 2.3 % (0-5); Hemoglobin 10.2 g/dL (12.0-15.0); Lymphocyte # 2.36 X10^3/ul (4.0); Lymphocyte % 25.5 % (19-41); Mean Corpuscular Hgb 26.8 pg (27.0-32.0); Mean Corpuscular Volume 89.5 fL (81-99); Mean Platelet Vol. 8.6 fl (6.2-12.0); Monocyte# 0.76 X10^3/uL; Monocyte% 8.2 % (0-10); NRBC Flagged by Analyzer 0 % (0-5); Neutrophil # 5.72 X10^3/uL (2.7-7.7); Neutrophil % 61.8 % (47-70); Platelet Count 321 K/mm3 (150-450); RBC Distribution Width CV 14.1 % (11.6-14.6); RBC Distribution Width SD 45.8 fl (35.1-43.9); White Blood Count 9.3 K/mm3 (4.4-11.0)
--- NOTE | 2020-08-25 07:29 | DCINST_ITS ---
Discharge Diet: No Restrictions Discharge Activity: May Not Drive, May not drive while taking narcotic pain medications., May Shower - Keep dressing clean dry and intact, Use Walker, - Weight Bearing Status: No weight bearing - Right leg Keep extremity elevated above heart level: Operative Extremity, Right Leg Call your doctor if your incision/area has: Sudden Increased Bleeding, Increased Pain/ Swelling, Foul Smelling Discharge Call your doctor if you observe: Fever of 101 or Higher, Shortness of breath, Chest pain Cleanse incision/area with: Keep Dressing Clean & Dry - Dressing was last changed on 08/25/2020 with some serosanguineous drainage noted to dressing no active bleeding noted. Neurovascular status intact some ecchymosis noted to plantar foot Allergies/Adverse Reactions: Allergies balsam donald Allergy (Verified 08/20/20 04:39) Hives divalproex sodium [From Depakote] Allergy (Verified 08/20/20 04:39) Swelling propylene glycol Allergy (Verified 08/20/20 04:39) Hives thimerosal Allergy (Verified 08/20/20 04:39) Hives TOPAMAX Adverse Reaction (Uncoded 08/20/20 06:15) pt doesn't tolerate it Medications to take at Discharge Lorazepam [Ativan] 1 mg PO BID PRN PRN 08/17/13 Prazosin HCl [Minipress] 2 mg PO QHS 02/28/14 Hydroxyzine Pamoate [Vistaril] 50 mg PO 4X/DAY PRN PRN 07/02/14 Meloxicam [Mobic] 15 mg PO BREAKFAST 07/05/14 buPROPion XL [Wellbutrin Xl] 450 mg PO DAILY 07/05/14 Lamotrigine [Lamictal] 200 mg PO BID 09/09/14 cycloBENZAPRine HCl [Flexeril] 10 mg PO TID PRN #20 tab 01/16/15 Docusate Sodium [Colace] 200 mg PO BID 07/16/15 Lansoprazole [Prevacid] 15 mg PO BREAKFAST 07/16/15 Trazodone HCl 300 mg PO QHS 12/15/15 Enoxaparin [Lovenox] 40 mg SC DAILY #30 syringe 08/25/20 Ergocalciferol [Vitamin D] 50,000 unit PO Q7D #30 cap 01/29/21 Gabapentin [Neurontin] 300 mg PO TIDCM capsule 08/25/20 Oxycodone HCl/Acetaminophen [Percocet 5-325] 1 tab PO Q6H PRN PRN 7 Days #28 tab 08/25/20 The following prescriptions were given: Enoxaparin [Lovenox] 40 mg SC DAILY #30 syringe Prescription Printed Oxycodone HCl/Acetaminophen [Percocet 5-325] 1 tab PO Q6H PRN PRN 7 Days #28 tab PRN Reason: Pain Score 6-10 Prescription Printed Ergocalciferol [Vitamin D] 50,000 unit PO Q7D #30 cap Prescription Printed Primary Care Physician: April Aguilar MD [Primary Care Provider] - Test Results: Test results from this visit will be discussed in further detail at your follow- up appointment, if applicable. Please Follow Up With: Chuyita Robles DPM - week of Sep 04, 2020
[2020-08-25 07:44] LABS: Anion Gap 5 (5-15); BUN 17 mg/dL (7-18); BUN/Creat Ratio 24.4 RATIO (10-20); Calcium,Total 8.3 mg/dL (8.5-10.1); Chloride 103 mmol/L (98-107); EST Glomerular Filtration Rate 98 mL/min (>60); Est Glom Filt Rate - Afr Amer 119 mL/min (>60); Estimated Creatinine Clearance 80.62 ml/min; Glucose 99 mg/dL (74-106); Potassium 4.3 mmol/L (3.5-5.1); Sodium Level 136 mmol/L (136-145)
[2020-08-25 07:57] VITALS: BP 111/59; PULSE 94; RESP 12; TEMP 36.4; O2SAT 97
--- NOTE | 2020-08-25 08:07 | CASEMGMT ---
Addendum entered by Kimi Saba 08/25/20 09:49: SW placed a call to [facility], admissions is in a meeting at this time. Admissions to call this worker back once the meeting is done. Original Note: Social Work Note SW received message from Aakash at [facility] stating the only way pt's PAS/RR could be expedited is if pt was being unsafe in the community and needed placed. Aakash states that since pt is safe in the hospital, PAS/RR is not able to be expedited. Kimi Saba GREEN MARKETING ANALYST, PARTS SALES COUNTERPERSON
[2020-08-25] MEDS: lamoTRIgine 100 MG Tablet 200 MG PO ×2 (09:30→22:25)
[2020-08-25] MEDS: Enoxaparin 40 MG/0.4 ML Syringe SC ×2 (09:30→09:32)
[2020-08-25] MEDS: Meloxicam 15 MG Tablet PO (09:30)
[2020-08-25] MEDS: Gabapentin 300 MG Capsule PO ×3 (09:30→18:00)
[2020-08-25] MEDS: Pantoprazole Sodium 20 MG Tablet PO (09:30)
[2020-08-25] MEDS: Senna/Docusate Sodium 1 Tablet 2 TABLET PO ×2 (09:31→22:25)
[2020-08-25] MEDS: buPROPion (XL) 150 MG TABLET.XL 450 MG PO (09:31)
[2020-08-25 09:53] VITALS: O2SAT 97
--- NOTE | 2020-08-25 10:30 | CASEMGMT ---
Addendum entered by Kimi Saba 08/25/20 11:40: JEANNE placed a call to Isabell at [facility] and left message that pt will be going to [facility] now. Addendum entered by Kimi Saba 08/25/20 11:06: Kaity states pt will also need COVID test within 48 hours of pt's discharge. COVID test will need to be ordered again. Addendum entered by Kimi Saba 08/25/20 11:04: JEANNE received call from Kaity at [facility]. [facility] is able to accept pt, Kaity states they will need to submit for pre-cert. SW updated Kaity that PAS/RR Was completed yesterday and due to MH Hx, pt did trip screen, pt will need approval from [facility] before pt can be moved. Kaity states understanding. SW in to speak with pt. SW updated pt that [facility] is able to accept, pre-cert will be submitted. Pt agreeable to [facility]. SW updated pt that pt will need approval and that may not happen today. If no approval is received today, pt will likely be at [facility] through the weekend. Pt states understanding. Plan: [facility] pending pre-cert and [facility] approval Original Note: Social Work Note SW updated that pt is asking why she can't stay at [facility] for rehab and requesting to speak to SW. SW in to speak with pt. SW updated pt that this worker is waiting to hear back from [facility]. Pt asked why she is not able to stay at [facility]. SW updated pt that this worker did make referral to [facility] on Friday and [facility] physician felt pt was not appropriate for [facility]. SW explained that [facility] is not taking pt's insurance at this time. Pt asked if it was due to her mental health hx. SW explained that for [facility] has certain criteria and diagnosis and [facility] physician felt pt was not appropriate, didn't qualify. SW informed pt that once this worker hears from [facility], this worker will update. SW explained that pt may not even get out today as approval is still needed. Plan: SNF pending [facility] approval Kimi Saba DIGITAL DEVELOPER, PHILOSOPHY LECTURER
--- NOTE | 2020-08-25 10:34 | PCM.PROGNOTE ---
Patient Problems: Active and Suspected Problems (Last Updated 08/20/20 @ 06:[address] Venkatesh Dan MD) Ankle fracture (Acute) Deterioration in ability to walk (Acute) Trimalleolar fracture of right ankle (Acute) Ankle pain (Acute) Fibromyalgia (Acute) Subjective: Patient seen and examined bedside. Patient denies any new pedal complaints. Patient denies any nausea, fever, chills, chest pain, shortness of breath, cough, streaking, purulence, vomiting. Patient reports some right ankle pain, but it is improved - Physical Exam Vitals/I&O's: Vital Signs Temp Pulse Resp BP Pulse Ox 98.8 F 96 18 144/81 H 98 08/26/20 02:52 08/26/20 02:52 08/26/20 02:52 08/26/20 02:52 08/26/20 02:52 Oxygen Flow Rate (L/min) 2 Oxygen Delivery Method Room Air Weight: 94.6 kg Body Mass Index (BMI) 38.7 Intake and Output for Last 24 Hours 08/24/20 08/25/20 08/26/20 23:59 23:59 23:59 Intake Total 1600 / 1600 1650 / 1650 200 / 200 Output Total 600 / 600 Balance 1000 / 1000 1650 / 1650 200 / 200 General: Alert, Oriented x3 HEENT: Atraumatic Extremities: No clubbing, No cyanosis, Capillary Refill Less than 3 Seconds, No Calf Tenderness - calf soft and supple, no signs of DVT, Diminished Peripheral Pulses, Edema - right lower extremity, Tenderness - along incisions Skin: Incision - medial and lateral ankle. Sutures intact, skin well coapted, no maceration, no necrosis, serosanginous drainage noted, - - ecchymosis noted to plantar right foot Musculoskeletal: Tenderness - right ankle Neurological: Sensory exam intact to light touch and pain Psych/Mental Status: Normal Affect, Appropriate Current Medications Acetaminophen (Acetaminophen 325 Mg Tablet) 650 mg PO Q6H PRN PRN PRN Reason: Pain Score 1-10/Temp > 100.7 F Last Admin: 08/24/20 09:02 Dose: 650 mg Documented by: Bupropion HCl (Bupropion (Xl) 150 Mg Tablet.Xl) 450 mg PO DAILY [facility] Last Admin: 08/26/20 09:45 Dose: 450 mg Documented by: Cyclobenzaprine HCl (Cyclobenzaprine Hcl 10 Mg Tablet) 10 mg PO TID PRN PRN PRN Reason: MS Last Admin: 08/26/20 08:39 Dose: 10 mg Documented by: Doxazosin Mesylate (Doxazosin 1 Mg Tablet) 2 mg PO QHS [facility] Last Admin: 08/25/20 22:25 Dose: 2 mg Documented by: Enoxaparin Sodium (Enoxaparin 40 Mg/0.4 Ml Syringe) 40 mg SC DAILY [facility] Last Admin: 08/25/20 09:32 Dose: 40 mg Documented by: Ergocalciferol (Ergocalciferol 50,000 Unit Capsule) 50,000 unit PO Q7D [facility] Last Admin: 08/23/20 11:24 Dose: 50,000 unit Documented by: Gabapentin (Gabapentin 300 Mg Capsule) 300 mg PO TIDCM [facility] Last Admin: 08/26/20 08:35 Dose: 300 mg Documented by: Hydroxyzine Pamoate (Hydroxyzine Berenice 25 Mg Capsule) 50 mg PO 4X/DAY PRN PRN PRN Reason: ANXIETY Last Admin: 08/25/20 22:25 Dose: 50 mg Documented by: Sodium Chloride () 250 mls @ 15 mls/hr IV .[id number] PRN PRN Reason: Saline Flush Sodium Chloride () 250 mls @ 15 mls/hr IV .[id number] PRN PRN Reason: Additional IVPB Infusion Lamotrigine (Lamotrigine 100 Mg Tablet) 200 mg PO BID [facility] Last Admin: 08/26/20 09:44 Dose: 200 mg Documented by: Lorazepam (Lorazepam 1 Mg Tablet) 1 mg PO BID PRN PRN PRN Reason: ANXIETY UNRELIEVED BY VISTARIL Last Admin: 08/25/20 00:05 Dose: 1 mg Documented by: Meloxicam (Meloxicam 15 Mg Tablet) 15 mg PO BREAKFAST [facility] Last Admin: 08/26/20 08:35 Dose: 15 mg Documented by: Morphine Sulfate (Morphine 2 Mg/Ml Syringe) 2 mg IV Q4H PRN PRN PRN Reason: Pain 6-10 Last Admin: 08/25/20 16:04 Dose: 2 mg Documented by: Ondansetron HCl (Ondansetron 4 Mg/2 Ml Vial) 4 mg IV Q8H PRN PRN PRN Reason: NAUSEA/VOMITING Oxycodone HCl (Oxycodone 5 Mg Tablet) 5 mg PO Q4H PRN PRN PRN Reason: Pain Score 4-5 Last Admin: 08/26/20 08:38 Dose: 5 mg Documented by: Oxycodone HCl (Oxycodone 5 Mg Tablet) 10 mg PO Q4H PRN PRN PRN Reason: Pain Score 6-10/10 Last Admin: 08/26/20 03:04 Dose: 10 mg Documented by: Pantoprazole Sodium (Pantoprazole Sodium 20 Mg Tablet) 20 mg PO BREAKFAST [facility] Last Admin: 08/26/20 08:36 Dose: 20 mg Documented by: Polyethylene Glycol (Polyethylene Glycol 3350 17 Gm Packet) 17 gm PO DAILY PRN PRN Reason: Constipation Senna/Docusate Sodium (Senna/Docusate Sodium 1 Tablet) 2 tablet PO BID [facility] Last Admin: 08/26/20 09:45 Dose: 2 tablet Documented by: Sodium Chloride (0.9% Saline Lock 10 Ml Syringe) 10 - 40 ml IV UD PRN PRN Reason: SALINE FLUSH Last Admin: 08/26/20 03:04 Dose: 10 ml Documented by: Trazodone HCl (Trazodone 100 Mg Tablet) 300 mg PO QHS [facility] Last Admin: 08/25/20 22:25 Dose: 300 mg Documented by: Medical Necessity - Tobacco Use Smoking Status: Never smoker Assessment/Plan All Active Problems (Last Updated 08/20/20 @ 06:[address] Venkatesh Dan MD) Ankle fracture (Acute) Deterioration in ability to walk (Acute) Trimalleolar fracture of right ankle (Acute) Ankle pain (Acute) Fibromyalgia (Acute) Try malleolus right ankle fracture is post ORIF 08/21/2020 Right ankle pain osteopenia Fibromyalgia History of chronic ankle sprains History of chronic/significant anorexia Patient seen and examined bedside Patient noted to have right ankle trimalleolar fracture which was reduced in the ED patient went home after being given prescription pain meds. Patient fell again at home and has since returned to ED with further displacement of the joint. Patient says she struggled with crutches due to shoulder pain. Patient lives alone X-rays and CT were reviewed showing ankle fracture trimall with displacement of ankle joint and talus Patient underwent ORIF right ankle 08/21/20 Discussed that her vitamin D levels were below average at 27.8 and discuss upping her supplementation levels to encourage proper bone healing. Patient to do weekly 50,000 units vit D Reviewed post operative x-rays. Showing gross realignment of tibia and fibula fractures with screw and plate constructs. Reviewed with the patient the normal course of healing. Discussed with patient is can have to be nonweightbearing for about 2 months to her right lower extremity. Discussed that a cast will go on at a later date once postoperative swelling is better controlled. Dressing was changed today. Serosanginous drainage noted. No signs of DVT. Swelling noted. Posterior splint reapplied. Due to patient following once already after fracturing her ankle patient was considered a high fall risk and would likely benefit from placement of facility during her rehabilitation Patient will follow up in office for suture removal and continued care Awaiting SNF placement precert for DC Rx given for percocet, lovenox, and vitamin D Podiatry will continue to follow please contact if any questions or concerns Chuyita Robles DPM [facility] [phone] This note was generated with Page[employer] dictation software. It may contain incorrect words, spelling, and punctuation that were not noted in checking the note before signing.
[2020-08-25 12:06] VITALS: BP 108/65; PULSE 102; RESP 12; TEMP 36.5; O2SAT 98
--- NOTE | 2020-08-25 13:14 | CASEMGMT ---
Addendum entered by Kimi Saba 08/25/20 15:33: Green sheet, transportation form, PAS/RR on pt's chart. SW wrote on green sheet for staff to check with SW on Friday before discharging pt. Pt still needs pre-cert and approval from [facility] before pt is able to discharge. Addendum entered by Kimi Saba 08/25/20 15:29: SW updated again that pt is requesting to speak to SW. SW in to speak with pt. Pt states her dressing changes were done today and she thinks they are too loose. SW informed pt that this worker doesn't address/is unable to answer medical question but can relay it to the RN. SW explained that this worker only does discharge planning and that any medical questions need to be asked to the RN. SW updated pt that this worker will relay concerns to RN. SW updated RN. Addendum entered by Kimi Saba 08/25/20 14:53: SW updated that pt is requesting to speak to this worker. SW in to speak with pt. Pt's mother present in room. Pt asked when she is doing to the longterm. SW explained that pt needs approval before can discharge to SNF, likely will not be today. SW explained insurance doesn't work over the weekend. Original Note: Social Work Note SW received call from Mercedes at [facility] stating pt's insurance is requesting updated PT/OT. JEANNE faxed updated clinicals to [facility]. Plan: [place] pending pre-cert and approval from [facility] Kimi Saba SOLUTION STRATEGIST, GROUND CREW CHIEF
--- NOTE | 2020-08-25 16:01 | PN_ITS ---
Patient Problems: Active and Suspected Problems (Last Updated 08/20/20 @ 06:[address] Venkatesh Dan MD) Ankle fracture (Acute) Deterioration in ability to walk (Acute) Trimalleolar fracture of right ankle (Acute) Ankle pain (Acute) Fibromyalgia (Acute) Subjective: Patient seen and examined. She had no complaints. Review of stems otherwise negative. Labs and vitals reviewed. Vitals/I&O's: Vital Signs Temp Pulse Resp BP Pulse Ox 97.7 F L 102 H 12 108/65 98 08/25/20 12:06 08/25/20 12:06 08/25/20 12:06 08/25/20 12:06 08/25/20 12:06 Oxygen Flow Rate (L/min) 2 Oxygen Delivery Method Room Air Weight: 208 lb 8.917 oz Body Mass Index (BMI) 38.7 Intake and Output for Last 24 Hours 08/23/20 08/24/20 08/25/20 23:59 23:59 23:59 Intake Total 1050 / 1550 1600 / 1600 200 / 200 Output Total 1100 / 1400 600 / 600 Balance -50 / 150 1000 / 1000 200 / 200 General: Alert, Oriented x3, Cooperative, No apparent distress HEENT: Atraumatic, PERRLA, EOMI, Normocephalic Oral: Moist Mucosa Neck: Supple, No JVD, Negative Carotid Bruits Lungs: Clear to auscultation, Normal air movement Cardiovascular: Regular rate, Normal S2, No murmurs Abdomen: Bowel Sounds Present, Soft, Non Tender Extremities: - - RLE wrapped in bandage Skin: No rashes, No breakdown Lymphatic: No Cervical, Supraclavicular, or Inguinal Adenopathy Neurological: Cranial nerves II-XII grossly intact Psych/Mental Status: Normal Affect, Appropriate, Alert and oriented to time, place, person, mood and affect Laboratory Results 08/25/20 06:50: WBC 9.3, RBC 3.80 L, Hgb 10.2 L, Hct 34.0 L, MCV 89.5, MCH 26.8 L, MCHC 30.0 L, RDW Std Deviation 45.8 H, RDW Coeff of Bassem 14.1, Plt Count 321, MPV 8.6, Immature Gran % (Auto) 1.600 H, Neut % (Auto) 61.8, Lymph % (Auto) 25.5, Crane % (Auto) 8.2, Eos % (Auto) 2.3, Baso % (Auto) 0.6, Absolute Neuts (auto) 5.7, Absolute Lymphs (auto) 2.36, Nucleated RBC % 0 08/25/20 06:50: Sodium 136, Potassium 4.3, Chloride 103, Carbon Dioxide 28.0, Anion Gap 5, BUN 17, Creatinine 0.70, Estim Creat Clear Calc 80.62, Est GFR (MDRD) Af Amer 119, Est GFR (MDRD) Non-Af 98, BUN/Creatinine Ratio 24.4 H, Gluc ose 99, Calcium 8.3 L Current Medications Acetaminophen (Acetaminophen 325 Mg Tablet) 650 mg PO Q6H PRN PRN PRN Reason: Pain Score 1-10/Temp > 100.7 F Last Admin: 08/24/20 09:02 Dose: 650 mg Documented by: Bupropion HCl (Bupropion (Xl) 150 Mg Tablet.Xl) 450 mg PO DAILY [facility] Last Admin: 08/25/20 09:31 Dose: 450 mg Documented by: Cyclobenzaprine HCl (Cyclobenzaprine Hcl 10 Mg Tablet) 10 mg PO TID PRN PRN PRN Reason: MS Last Admin: 08/25/20 00:05 Dose: 10 mg Documented by: Doxazosin Mesylate (Doxazosin 1 Mg Tablet) 2 mg PO QHS [facility] Last Admin: 08/24/20 21:48 Dose: 2 mg Documented by: Enoxaparin Sodium (Enoxaparin 40 Mg/0.4 Ml Syringe) 40 mg SC DAILY [facility] Last Admin: 08/25/20 09:32 Dose: 40 mg Documented by: Ergocalciferol (Ergocalciferol 50,000 Unit Capsule) 50,000 unit PO Q7D [facility] Last Admin: 08/23/20 11:24 Dose: 50,000 unit Documented by: Gabapentin (Gabapentin 300 Mg Capsule) 300 mg PO TIDCM [facility] Last Admin: 08/25/20 13:39 Dose: 300 mg Documented by: Hydroxyzine Pamoate (Hydroxyzine Berenice 25 Mg Capsule) 50 mg PO 4X/DAY PRN PRN PRN Reason: ANXIETY Last Admin: 08/24/20 23:15 Dose: 50 mg Documented by: Sodium Chloride () 250 mls @ 15 mls/hr IV .[id number] PRN PRN Reason: Saline Flush Sodium Chloride () 250 mls @ 15 mls/hr IV .[id number] PRN PRN Reason: Additional IVPB Infusion Lamotrigine (Lamotrigine 100 Mg Tablet) 200 mg PO BID [facility] Last Admin: 08/25/20 09:30 Dose: 200 mg Documented by: Lorazepam (Lorazepam 1 Mg Tablet) 1 mg PO BID PRN PRN PRN Reason: ANXIETY UNRELIEVED BY VIST[facility] Last Admin: 08/25/20 00:05 Dose: 1 mg Documented by: Meloxicam (Meloxicam 15 Mg Tablet) 15 mg PO BREAKFAST [facility] Last Admin: 08/25/20 09:30 Dose: 15 mg Documented by: Morphine Sulfate (Morphine 2 Mg/Ml Syringe) 2 mg IV Q4H PRN PRN PRN Reason: Pain 6-10 Last Admin: 08/25/20 06:26 Dose: 2 mg Documented by: Ondansetron HCl (Ondansetron 4 Mg/2 Ml Vial) 4 mg IV Q8H PRN PRN PRN Reason: NAUSEA/VOMITING Oxycodone HCl (Oxycodone 5 Mg Tablet) 5 mg PO Q4H PRN PRN PRN Reason: Pain Score 4-5 Last Admin: 08/23/20 06:56 Dose: 5 mg Documented by: Oxycodone HCl (Oxycodone 5 Mg Tablet) 10 mg PO Q4H PRN PRN PRN Reason: Pain Score 6-10/10 Last Admin: 08/25/20 10:46 Dose: 10 mg Documented by: Pantoprazole Sodium (Pantoprazole Sodium 20 Mg Tablet) 20 mg PO BREAKFAST [facility] Last Admin: 08/25/20 09:30 Dose: 20 mg Documented by: Polyethylene Glycol (Polyethylene Glycol 3350 17 Gm Packet) 17 gm PO DAILY PRN PRN Reason: Constipation Senna/Docusate Sodium (Senna/Docusate Sodium 1 Tablet) 2 tablet PO BID [facility] Last Admin: 08/25/20 09:31 Dose: 2 tablet Documented by: Sodium Chloride (0.9% Saline Lock 10 Ml Syringe) 10 - 40 ml IV UD PRN PRN Reason: SALINE FLUSH Last Admin: 08/25/20 06:27 Dose: 10 ml Documented by: Trazodone HCl (Trazodone 100 Mg Tablet) 300 mg PO QHS [facility] Last Admin: 08/24/20 21:48 Dose: 300 mg Documented by: STROKE Vital Signs/Narrative: Vital Signs Temp Pulse Resp BP Pulse Ox 08/25/20 12:06 97.7 F L 102 H 12 108/65 98 Medical Necessity - Tobacco Use Smoking Status: Never smoker Assessment/Plan All Active Problems (Last Updated 08/20/20 @ 06:[address] Venkatesh Dan MD) Ankle fracture (Acute) Deterioration in ability to walk (Acute) Trimalleolar fracture of right ankle (Acute) Ankle pain (Acute) Fibromyalgia (Acute) #Right ankle fracture with dislocation * Podiatry on board. * today is POD 4 for right ankle ORIF * On IV morphine as needed for pain as well as acetaminophen and meloxicam and oxycodone * PT OT on board. * fall precautions * #Fibromyalgia and PTSD * stable * #Vitamin D deficiency: on vitamin D supplementation 50,000 q7d. #Depression and anxiety: on wellbutrin and trazodone DVT prophylaxis: lovenox 40mg daily Disposition: awaiting placement in SNF Inpatient E&M: 97850 Subs Hosp L2
[2020-08-25 16:12] VITALS: BP 131/80; PULSE 102; RESP 16; TEMP 36.6; O2SAT 98
[2020-08-25 20:28] VITALS: BP 122/65; PULSE 110; RESP 18; TEMP 37.6; O2SAT 98
[2020-08-25] MEDS: Doxazosin 1 MG Tablet 2 MG PO (22:25)
[2020-08-25] MEDS: traZODone 100 MG Tablet 300 MG PO (22:25)
[2020-08-25] MEDS: hydrOXYzine PAM 25 MG Capsule 50 MG PO (22:25)
[2020-08-26 02:52] VITALS: BP 144/81; PULSE 96; RESP 18; TEMP 37.1; O2SAT 98
[2020-08-26] MEDS: oxyCODONE 5 MG Tablet 10 MG PO ×3 (03:04→21:24)
[2020-08-26] MEDS: 0.9% Saline Lock 10 ML Syringe IV (03:04)
--- NOTE | 2020-08-26 04:15 | NURSING ---
0252 this RN spent 35 minutes of one on one time talking to pt about life, rehab placement, her goals, and her spiritual needs. pt voiced she has been having increased anxiety regarding rehab and fpc placement. emotional support provided
--- NOTE | 2020-08-26 07:53 | PN_ITS ---
Patient Problems: Active and Suspected Problems (Last Updated 08/20/20 @ 06:[address] Venkatesh Dan MD) Ankle fracture (Acute) Deterioration in ability to walk (Acute) Trimalleolar fracture of right ankle (Acute) Ankle pain (Acute) Fibromyalgia (Acute) Subjective: Patient was seen this morning, resting comfortably in chair with right foot/ankle elevated with pillows. Patient afebrile. No fever, chills, nausea, vomiting, shortness of breath, chest pain, or calf pain. - Physical Exam Vitals/I&O's: Vital Signs Temp Pulse Resp BP Pulse Ox 98.8 F 96 18 144/81 H 98 08/26/20 02:52 08/26/20 02:52 08/26/20 02:52 08/26/20 02:52 08/26/20 02:52 Oxygen Flow Rate (L/min) 2 Oxygen Delivery Method Room Air Weight: 94.6 kg Body Mass Index (BMI) 38.7 Intake and Output for Last 24 Hours 08/24/20 08/25/20 08/26/20 23:59 23:59 23:59 Intake Total 1600 / 1600 1650 / 1650 200 / 200 Output Total 600 / 600 Balance 1000 / 1000 1650 / 1650 200 / 200 General: Alert, Oriented x3, Cooperative Extremities: Capillary Refill Less than 3 Seconds, No Calf Tenderness, - - Splint/dressing is clean, dry and intact with no evidence of infection or DVT, right lower extremity, no evidence of DVT left lower extremity. Pt able to move toes right foot, sensation intact to all toes right foot. Psych/Mental Status: Appropriate, Alert and oriented to time, place, person, mood and affect Current Medications Acetaminophen (Acetaminophen 325 Mg Tablet) 650 mg PO Q6H PRN PRN PRN Reason: Pain Score 1-10/Temp > 100.7 F Last Admin: 08/24/20 09:02 Dose: 650 mg Documented by: Bupropion HCl (Bupropion (Xl) 150 Mg Tablet.Xl) 450 mg PO DAILY [facility] Last Admin: 08/25/20 09:31 Dose: 450 mg Documented by: Cyclobenzaprine HCl (Cyclobenzaprine Hcl 10 Mg Tablet) 10 mg PO TID PRN PRN PRN Reason: MS Last Admin: 08/25/20 00:05 Dose: 10 mg Documented by: Doxazosin Mesylate (Doxazosin 1 Mg Tablet) 2 mg PO QHS [facility] Last Admin: 08/25/20 22:25 Dose: 2 mg Documented by: Enoxaparin Sodium (Enoxaparin 40 Mg/0.4 Ml Syringe) 40 mg SC DAILY [facility] Last Admin: 08/25/20 09:32 Dose: 40 mg Documented by: Ergocalciferol (Ergocalciferol 50,000 Unit Capsule) 50,000 unit PO Q7D [facility] Last Admin: 08/23/20 11:24 Dose: 50,000 unit Documented by: Gabapentin (Gabapentin 300 Mg Capsule) 300 mg PO TIDCM [facility] Last Admin: 08/25/20 18:00 Dose: 300 mg Documented by: Hydroxyzine Pamoate (Hydroxyzine Berenice 25 Mg Capsule) 50 mg PO 4X/DAY PRN PRN PRN Reason: ANXIETY Last Admin: 08/25/20 22:25 Dose: 50 mg Documented by: Sodium Chloride () 250 mls @ 15 mls/hr IV .[id number] PRN PRN Reason: Saline Flush Sodium Chloride () 250 mls @ 15 mls/hr IV .[id number] PRN PRN Reason: Additional IVPB Infusion Lamotrigine (Lamotrigine 100 Mg Tablet) 200 mg PO BID [facility] Last Admin: 08/25/20 22:25 Dose: 200 mg Documented by: Lorazepam (Lorazepam 1 Mg Tablet) 1 mg PO BID PRN PRN PRN Reason: ANXIETY UNRELIEVED BY [facility] Last Admin: 08/25/20 00:05 Dose: 1 mg Documented by: Meloxicam (Meloxicam 15 Mg Tablet) 15 mg PO BREAKFAST [facility] Last Admin: 08/25/20 09:30 Dose: 15 mg Documented by: Morphine Sulfate (Morphine 2 Mg/Ml Syringe) 2 mg IV Q4H PRN PRN PRN Reason: Pain 6-10 Last Admin: 08/25/20 16:04 Dose: 2 mg Documented by: Ondansetron HCl (Ondansetron 4 Mg/2 Ml Vial) 4 mg IV Q8H PRN PRN PRN Reason: NAUSEA/VOMITING Oxycodone HCl (Oxycodone 5 Mg Tablet) 5 mg PO Q4H PRN PRN PRN Reason: Pain Score 4-5 Last Admin: 08/23/20 06:56 Dose: 5 mg Documented by: Oxycodone HCl (Oxycodone 5 Mg Tablet) 10 mg PO Q4H PRN PRN PRN Reason: Pain Score 6-10/10 Last Admin: 08/26/20 03:04 Dose: 10 mg Documented by: Pantoprazole Sodium (Pantoprazole Sodium 20 Mg Tablet) 20 mg PO BREAKFAST [facility] Last Admin: 08/25/20 09:30 Dose: 20 mg Documented by: Polyethylene Glycol (Polyethylene Glycol 3350 17 Gm Packet) 17 gm PO DAILY PRN PRN Reason: Constipation Senna/Docusate Sodium (Senna/Docusate Sodium 1 Tablet) 2 tablet PO BID [facility] Last Admin: 08/25/20 22:25 Dose: 2 tablet Documented by: Sodium Chloride (0.9% Saline Lock 10 Ml Syringe) 10 - 40 ml IV UD PRN PRN Reason: SALINE FLUSH Last Admin: 08/26/20 03:04 Dose: 10 ml Documented by: Trazodone HCl (Trazodone 100 Mg Tablet) 300 mg PO QHS [facility] Last Admin: 08/25/20 22:25 Dose: 300 mg Documented by: Medical Necessity - Tobacco Use Smoking Status: Never smoker Assessment/Plan All Active Problems (Last Updated 08/20/20 @ 06:[address] Venkatesh Dan MD) Ankle fracture (Acute) Deterioration in ability to walk (Acute) Trimalleolar fracture of right ankle (Acute) Ankle pain (Acute) Fibromyalgia (Acute) Tri malleolus right ankle fracture is post ORIF 08/21/2020 Right ankle pain Fibromyalgia History of chronic ankle sprains Hypovitaminosis D Anxiety/psych conditions Patient seen and examined bedside. Post op course appropriate at this time. Keep dressing/splint clean, dry and intact right foot/ankle. No weightbearing right foot, keep foot elevated. Continue with pain management, as well as vitamin D supplementation as ordered. DVT Prophylaxis: Lovenox 40mg subcutaneous once daily. Discharge Planning: To nursing facility once approved by insurance. Podiatry will continue to follow please contact if any questions or concerns.
[2020-08-26] MEDS: Meloxicam 15 MG Tablet PO (08:35)
[2020-08-26] MEDS: Gabapentin 300 MG Capsule PO ×3 (08:35→16:46)
[2020-08-26] MEDS: Pantoprazole Sodium 20 MG Tablet PO (08:36)
[2020-08-26] MEDS: oxyCODONE 5 MG Tablet PO (08:38)
[2020-08-26] MEDS: cycloBENZAPRine HCl 10 MG Tablet PO (08:39)
[2020-08-26 08:56] VITALS: BP 130/66; PULSE 90; RESP 18; TEMP 37.2; O2SAT 98
[2020-08-26] MEDS: lamoTRIgine 100 MG Tablet 200 MG PO ×2 (09:44→21:24)
[2020-08-26] MEDS: buPROPion (XL) 150 MG TABLET.XL 450 MG PO (09:45)
[2020-08-26] MEDS: Senna/Docusate Sodium 1 Tablet 2 TABLET PO ×2 (09:45→21:23)
--- NOTE | 2020-08-26 12:15 | PN_ITS ---
Patient Problems: Active and Suspected Problems (Last Updated 08/20/20 @ 06:[address] Venkatesh Dan MD) Ankle fracture (Acute) Deterioration in ability to walk (Acute) Trimalleolar fracture of right ankle (Acute) Ankle pain (Acute) Fibromyalgia (Acute) Osteopenia (Acute) Subjective: Patient seen and examined. He complains that the bandage on her right foot is too loose and this makes her leg more painful. Review of systems otherwise negative. She is awaiting placement. She has remained hemodynamically stable. Vitals/I&O's: Vital Signs Temp Pulse Resp BP Pulse Ox 98.9 F 90 18 130/66 H 98 08/26/20 08:56 08/26/20 08:56 08/26/20 08:56 08/26/20 08:56 08/26/20 08:56 Oxygen Flow Rate (L/min) 2 Oxygen Delivery Method Room Air Weight: 208 lb 8.917 oz Body Mass Index (BMI) 38.7 Intake and Output for Last 24 Hours 08/24/20 08/25/20 08/26/20 23:59 23:59 23:59 Intake Total 1600 / 1600 1650 / 1650 200 / 200 Output Total 600 / 600 Balance 1000 / 1000 1650 / 1650 200 / 200 General: Alert, Oriented x3, Cooperative, No apparent distress HEENT: Atraumatic, PERRLA, EOMI, Normocephalic Oral: Moist Mucosa Neck: Supple, No JVD, Negative Carotid Bruits Lungs: Clear to auscultation, Normal air movement Cardiovascular: Regular rate, Normal S2, No murmurs Abdomen: Bowel Sounds Present, Soft, Non Tender Extremities: - - RLE wrapped in bandage Skin: No rashes, No breakdown Lymphatic: No Cervical, Supraclavicular, or Inguinal Adenopathy Neurological: Cranial nerves II-XII grossly intact Psych/Mental Status: Normal Affect, Appropriate, Alert and oriented to time, place, person, mood and affect Current Medications Acetaminophen (Acetaminophen 325 Mg Tablet) 650 mg PO Q6H PRN PRN PRN Reason: Pain Score 1-10/Temp > 100.7 F Last Admin: 08/24/20 09:02 Dose: 650 mg Documented by: Bupropion HCl (Bupropion (Xl) 150 Mg Tablet.Xl) 450 mg PO DAILY [facility] Last Admin: 08/26/20 09:45 Dose: 450 mg Documented by: Cyclobenzaprine HCl (Cyclobenzaprine Hcl 10 Mg Tablet) 10 mg PO TID PRN PRN PRN Reason: MS Last Admin: 08/26/20 08:39 Dose: 10 mg Documented by: Doxazosin Mesylate (Doxazosin 1 Mg Tablet) 2 mg PO QHS [facility] Last Admin: 08/25/20 22:25 Dose: 2 mg Documented by: Enoxaparin Sodium (Enoxaparin 40 Mg/0.4 Ml Syringe) 40 mg SC DAILY [facility] Last Admin: 08/25/20 09:32 Dose: 40 mg Documented by: Ergocalciferol (Ergocalciferol 50,000 Unit Capsule) 50,000 unit PO Q7D [facility] Last Admin: 08/23/20 11:24 Dose: 50,000 unit Documented by: Gabapentin (Gabapentin 300 Mg Capsule) 300 mg PO TIDCM [facility] Last Admin: 08/26/20 12:05 Dose: 300 mg Documented by: Hydroxyzine Pamoate (Hydroxyzine Berenice 25 Mg Capsule) 50 mg PO 4X/DAY PRN PRN PRN Reason: ANXIETY Last Admin: 08/25/20 22:25 Dose: 50 mg Documented by: Sodium Chloride () 250 mls @ 15 mls/hr IV .[id number] PRN PRN Reason: Saline Flush Sodium Chloride () 250 mls @ 15 mls/hr IV .[id number] PRN PRN Reason: Additional IVPB Infusion Lamotrigine (Lamotrigine 100 Mg Tablet) 200 mg PO BID [facility] Last Admin: 08/26/20 09:44 Dose: 200 mg Documented by: Lorazepam (Lorazepam 1 Mg Tablet) 1 mg PO BID PRN PRN PRN Reason: ANXIETY UNRELIEVED BY [facility] Last Admin: 08/25/20 00:05 Dose: 1 mg Documented by: Meloxicam (Meloxicam 15 Mg Tablet) 15 mg PO BREAKFAST [facility] Last Admin: 08/26/20 08:35 Dose: 15 mg Documented by: Morphine Sulfate (Morphine 2 Mg/Ml Syringe) 2 mg IV Q4H PRN PRN PRN Reason: Pain 6-10 Last Admin: 08/25/20 16:04 Dose: 2 mg Documented by: Ondansetron HCl (Ondansetron 4 Mg/2 Ml Vial) 4 mg IV Q8H PRN PRN PRN Reason: NAUSEA/VOMITING Oxycodone HCl (Oxycodone 5 Mg Tablet) 5 mg PO Q4H PRN PRN PRN Reason: Pain Score 4-5 Last Admin: 08/26/20 08:38 Dose: 5 mg Documented by: Oxycodone HCl (Oxycodone 5 Mg Tablet) 10 mg PO Q4H PRN PRN PRN Reason: Pain Score 6-10/10 Last Admin: 08/26/20 03:04 Dose: 10 mg Documented by: Pantoprazole Sodium (Pantoprazole Sodium 20 Mg Tablet) 20 mg PO BREAKFAST [facility] Last Admin: 08/26/20 08:36 Dose: 20 mg Documented by: Polyethylene Glycol (Polyethylene Glycol 3350 17 Gm Packet) 17 gm PO DAILY PRN PRN Reason: Constipation Senna/Docusate Sodium (Senna/Docusate Sodium 1 Tablet) 2 tablet PO BID [facility] Last Admin: 08/26/20 09:45 Dose: 2 tablet Documented by: Sodium Chloride (0.9% Saline Lock 10 Ml Syringe) 10 - 40 ml IV UD PRN PRN Reason: SALINE FLUSH Last Admin: 08/26/20 03:04 Dose: 10 ml Documented by: Trazodone HCl (Trazodone 100 Mg Tablet) 300 mg PO QHS [facility] Last Admin: 08/25/20 22:25 Dose: 300 mg Documented by: STROKE Vital Signs/Narrative: Vital Signs Temp Pulse Resp BP Pulse Ox 08/26/20 08:56 98.9 F 90 18 130/66 H 98 Medical Necessity - Tobacco Use Smoking Status: Never smoker Assessment/Plan All Active Problems (Last Updated 08/20/20 @ 06:[address] Venkatesh Dan MD) Ankle fracture (Acute) Deterioration in ability to walk (Acute) Trimalleolar fracture of right ankle (Acute) Ankle pain (Acute) Fibromyalgia (Acute) Osteopenia (Acute) #Right ankle fracture with dislocation * Podiatry on board. * today is POD 5 for right ankle ORIF * On IV morphine as needed for pain as well as acetaminophen and meloxicam and oxycodone * PT OT on board. * fall precautions * #Fibromyalgia and PTSD * stable * #Vitamin D deficiency: on vitamin D supplementation 50,000 q7d. #Depression and anxiety: on wellbutrin and trazodone DVT prophylaxis: lovenox 40mg daily Disposition: awaiting placement in SNF Inpatient E&M: 63620 Subs Hosp L2
[2020-08-26 16:49] VITALS: BP 102/68; PULSE 100; RESP 18; TEMP 37.1; O2SAT 98
[2020-08-26] MEDS: Doxazosin 1 MG Tablet 2 MG PO (21:23)
[2020-08-26] MEDS: hydrOXYzine PAM 25 MG Capsule 50 MG PO (21:24)
[2020-08-26] MEDS: traZODone 100 MG Tablet 300 MG PO (21:24)
[2020-08-26 22:00] VITALS: BP 141/61; PULSE 90; RESP 16; TEMP 36.9; O2SAT 95
[2020-08-27 04:21] VITALS: BP 100/54; PULSE 94; RESP 16; TEMP 37.3; O2SAT 99
[2020-08-27] MEDS: oxyCODONE 5 MG Tablet 10 MG PO ×4 (04:35→22:45)
[2020-08-27] MEDS: LORazepam 1 MG Tablet PO (08:37)
[2020-08-27] MEDS: cycloBENZAPRine HCl 10 MG Tablet PO ×2 (08:37→21:46)
[2020-08-27] MEDS: Meloxicam 15 MG Tablet PO (08:38)
[2020-08-27] MEDS: Pantoprazole Sodium 20 MG Tablet PO (08:38)
[2020-08-27] MEDS: Gabapentin 300 MG Capsule PO ×3 (08:38→17:12)
[2020-08-27 08:56] VITALS: BP 104/71; PULSE 95; RESP 18; TEMP 37.1; O2SAT 99
--- NOTE | 2020-08-27 09:38 | PCM.PROGNOTE ---
Patient Problems: Active and Suspected Problems (Last Updated 08/20/20 @ 06:[address] Venkatesh Dan MD) Ankle fracture (Acute) Deterioration in ability to walk (Acute) Trimalleolar fracture of right ankle (Acute) Ankle pain (Acute) Fibromyalgia (Acute) Osteopenia (Acute) Subjective: Patient was seen today for follow up on right ankle. She is resting in chair with feet elevated. She relates she has leg pain in right leg. She has no other complaints, no complaints of fever, chills, nausea or vomiting, shortness of breath or chest pain. - Physical Exam Vitals/I&O's: Vital Signs Temp Pulse Resp BP Pulse Ox 99.1 F 94 16 100/54 L 99 08/27/20 04:21 08/27/20 04:21 08/27/20 04:21 08/27/20 04:21 08/27/20 04:21 Oxygen Flow Rate (L/min) 2 Oxygen Delivery Method Room Air Weight: 94.6 kg Body Mass Index (BMI) 38.7 Intake and Output for Last 24 Hours 08/25/20 08/26/20 08/27/20 23:59 23:59 23:59 Intake Total 1650 / 1650 1800 / 1800 350 / 350 Balance 1650 / 1650 1800 / 1800 350 / 350 General: Alert, Oriented x3, Cooperative Extremities: Capillary Refill Less than 3 Seconds, - - Splint to the right foot/ankle/leg is clean, dry and intact, she is able to move toes with no pain, no evidence of infection, she does have some calf pain. Current Medications Acetaminophen (Acetaminophen 325 Mg Tablet) 650 mg PO Q6H PRN PRN PRN Reason: Pain Score 1-10/Temp > 100.7 F Last Admin: 08/24/20 09:02 Dose: 650 mg Documented by: Bupropion HCl (Bupropion (Xl) 150 Mg Tablet.Xl) 450 mg PO DAILY [facility] Last Admin: 08/26/20 09:45 Dose: 450 mg Documented by: Cyclobenzaprine HCl (Cyclobenzaprine Hcl 10 Mg Tablet) 10 mg PO TID PRN PRN PRN Reason: MS Last Admin: 08/27/20 08:37 Dose: 10 mg Documented by: Doxazosin Mesylate (Doxazosin 1 Mg Tablet) 2 mg PO QHS [facility] Last Admin: 08/26/20 21:23 Dose: 2 mg Documented by: Enoxaparin Sodium (Enoxaparin 40 Mg/0.4 Ml Syringe) 40 mg SC DAILY [facility] Last Admin: 08/25/20 09:32 Dose: 40 mg Documented by: Ergocalciferol (Ergocalciferol 50,000 Unit Capsule) 50,000 unit PO Q7D [facility] Last Admin: 08/23/20 11:24 Dose: 50,000 unit Documented by: Gabapentin (Gabapentin 300 Mg Capsule) 300 mg PO TIDCM [facility] Last Admin: 08/27/20 08:38 Dose: 300 mg Documented by: Hydroxyzine Pamoate (Hydroxyzine Berenice 25 Mg Capsule) 50 mg PO 4X/DAY PRN PRN PRN Reason: ANXIETY Last Admin: 08/26/20 21:24 Dose: 50 mg Documented by: Sodium Chloride () 250 mls @ 15 mls/hr IV .[id number] PRN PRN Reason: Saline Flush Sodium Chloride () 250 mls @ 15 mls/hr IV .[id number] PRN PRN Reason: Additional IVPB Infusion Lamotrigine (Lamotrigine 100 Mg Tablet) 200 mg PO BID [facility] Last Admin: 08/26/20 21:24 Dose: 200 mg Documented by: Lorazepam (Lorazepam 1 Mg Tablet) 1 mg PO BID PRN PRN PRN Reason: ANXIETY UNRELIEVED BY VISTARIL Last Admin: 08/27/20 08:37 Dose: 1 mg Documented by: Meloxicam (Meloxicam 15 Mg Tablet) 15 mg PO BREAKFAST [facility] Last Admin: 08/27/20 08:38 Dose: 15 mg Documented by: Morphine Sulfate (Morphine 2 Mg/Ml Syringe) 2 mg IV Q4H PRN PRN PRN Reason: Pain 6-10 Last Admin: 08/25/20 16:04 Dose: 2 mg Documented by: Ondansetron HCl (Ondansetron 4 Mg/2 Ml Vial) 4 mg IV Q8H PRN PRN PRN Reason: NAUSEA/VOMITING Oxycodone HCl (Oxycodone 5 Mg Tablet) 5 mg PO Q4H PRN PRN PRN Reason: Pain Score 4-5 Last Admin: 08/26/20 08:38 Dose: 5 mg Documented by: Oxycodone HCl (Oxycodone 5 Mg Tablet) 10 mg PO Q4H PRN PRN PRN Reason: Pain Score 6-10/10 Last Admin: 08/27/20 08:37 Dose: 10 mg Documented by: Pantoprazole Sodium (Pantoprazole Sodium 20 Mg Tablet) 20 mg PO BREAKFAST [facility] Last Admin: 08/27/20 08:38 Dose: 20 mg Documented by: Polyethylene Glycol (Polyethylene Glycol 3350 17 Gm Packet) 17 gm PO DAILY PRN PRN Reason: Constipation Senna/Docusate Sodium (Senna/Docusate Sodium 1 Tablet) 2 tablet PO BID [facility] Last Admin: 08/26/20 21:23 Dose: 2 tablet Documented by: Sodium Chloride (0.9% Saline Lock 10 Ml Syringe) 10 - 40 ml IV UD PRN PRN Reason: SALINE FLUSH Last Admin: 08/26/20 03:04 Dose: 10 ml Documented by: Trazodone HCl (Trazodone 100 Mg Tablet) 300 mg PO QHS [facility] Last Admin: 08/26/20 21:24 Dose: 300 mg Documented by: Medical Necessity - Tobacco Use Smoking Status: Never smoker Assessment/Plan All Active Problems (Last Updated 08/20/20 @ 06:[address] Venkatesh Dan MD) Ankle fracture (Acute) Deterioration in ability to walk (Acute) Trimalleolar fracture of right ankle (Acute) Ankle pain (Acute) Fibromyalgia (Acute) Osteopenia (Acute) Trimalleolus right ankle fracture is post ORIF 08/21/2020 Right ankle pain Fibromyalgia History of chronic ankle sprains Hypovitaminosis D Anxiety/psych conditions Patient seen and examined bedside. Post op course appropriate at this time but patient relates to some right calf pain so a venous doppler was ordered for further evaluation. Keep dressing/splint clean, dry and intact right foot/ankle. No weightbearing right foot, keep foot elevated. Continue with pain management, as well as vitamin D supplementation 50,000 units once a week as ordered. DVT Prophylaxis: Lovenox 40mg subcutaneous once daily. Discharge Planning: To nursing facility once approved by insurance. Podiatry will continue to follow please contact if any questions or concerns.
[2020-08-27] MEDS: Senna/Docusate Sodium 1 Tablet 2 TABLET PO ×2 (10:47→21:46)
[2020-08-27] MEDS: Enoxaparin 40 MG/0.4 ML Syringe SC (10:47)
[2020-08-27] MEDS: lamoTRIgine 100 MG Tablet 200 MG PO ×2 (10:47→21:46)
[2020-08-27] MEDS: buPROPion (XL) 150 MG TABLET.XL 450 MG PO (10:48)
--- NOTE | 2020-08-27 12:00 | PCM.PN.HOSP ---
Patient Problems: Active and Suspected Problems (Last Updated 08/20/20 @ 06:[address] Venkatesh Dan MD) Ankle fracture (Acute) Deterioration in ability to walk (Acute) Trimalleolar fracture of right ankle (Acute) Ankle pain (Acute) Fibromyalgia (Acute) Osteopenia (Acute) Subjective: Patient seen and examined. She has no complaints today. Review of symptoms otherwise negative. She has remained hemodynamically stable. Podiatry later informed me that patient was complaining of right calf pain so duplex of the right lower extremity ordered. Vitals/I&O's: Vital Signs Temp Pulse Resp BP Pulse Ox 98.8 F 95 18 104/71 99 08/27/20 08:56 08/27/20 08:56 08/27/20 08:56 08/27/20 08:56 08/27/20 08:56 Oxygen Flow Rate (L/min) 2 Oxygen Delivery Method Room Air Weight: 208 lb 8.917 oz Body Mass Index (BMI) 38.7 Intake and Output for Last 24 Hours 08/25/20 08/26/20 08/27/20 23:59 23:59 23:59 Intake Total 1650 / 1650 1800 / 1800 350 / 350 Balance 1650 / 1650 1800 / 1800 350 / 350 General: Alert, Oriented x3, Cooperative, No apparent distress HEENT: Atraumatic, PERRLA, EOMI, Normocephalic Oral: Moist Mucosa Neck: Supple, No JVD, Negative Carotid Bruits Lungs: Clear to auscultation, Normal air movement Cardiovascular: Regular rate, Normal S2, No murmurs Abdomen: Bowel Sounds Present, Soft, Non Tender Extremities: - - RLE wrapped in bandage Skin: No rashes, No breakdown Lymphatic: No Cervical, Supraclavicular, or Inguinal Adenopathy Neurological: Cranial nerves II-XII grossly intact Psych/Mental Status: Normal Affect, Appropriate, Alert and oriented to time, place, person, mood and affect Current Medications Acetaminophen (Acetaminophen 325 Mg Tablet) 650 mg PO Q6H PRN PRN PRN Reason: Pain Score 1-10/Temp > 100.7 F Last Admin: 08/24/20 09:02 Dose: 650 mg Documented by: Bupropion HCl (Bupropion (Xl) 150 Mg Tablet.Xl) 450 mg PO DAILY [facility] Last Admin: 08/27/20 10:48 Dose: 450 mg Documented by: Cyclobenzaprine HCl (Cyclobenzaprine Hcl 10 Mg Tablet) 10 mg PO TID PRN PRN PRN Reason: MS Last Admin: 08/27/20 08:37 Dose: 10 mg Documented by: Doxazosin Mesylate (Doxazosin 1 Mg Tablet) 2 mg PO QHS [facility] Last Admin: 08/26/20 21:23 Dose: 2 mg Documented by: Enoxaparin Sodium (Enoxaparin 40 Mg/0.4 Ml Syringe) 40 mg SC DAILY [facility] Last Admin: 08/27/20 10:47 Dose: 40 mg Documented by: Ergocalciferol (Ergocalciferol 50,000 Unit Capsule) 50,000 unit PO Q7D [facility] Last Admin: 08/23/20 11:24 Dose: 50,000 unit Documented by: Gabapentin (Gabapentin 300 Mg Capsule) 300 mg PO TIDCM [facility] Last Admin: 08/27/20 08:38 Dose: 300 mg Documented by: Hydroxyzine Pamoate (Hydroxyzine Berenice 25 Mg Capsule) 50 mg PO 4X/DAY PRN PRN PRN Reason: ANXIETY Last Admin: 08/26/20 21:24 Dose: 50 mg Documented by: Sodium Chloride () 250 mls @ 15 mls/hr IV .[id number] PRN PRN Reason: Saline Flush Sodium Chloride () 250 mls @ 15 mls/hr IV .[id number] PRN PRN Reason: Additional IVPB Infusion Lamotrigine (Lamotrigine 100 Mg Tablet) 200 mg PO BID [facility] Last Admin: 08/27/20 10:47 Dose: 200 mg Documented by: Lorazepam (Lorazepam 1 Mg Tablet) 1 mg PO BID PRN PRN PRN Reason: ANXIETY UNRELIEVED BY VISTARIL Last Admin: 08/27/20 08:37 Dose: 1 mg Documented by: Meloxicam (Meloxicam 15 Mg Tablet) 15 mg PO BREAKFAST [facility] Last Admin: 08/27/20 08:38 Dose: 15 mg Documented by: Morphine Sulfate (Morphine 2 Mg/Ml Syringe) 2 mg IV Q4H PRN PRN PRN Reason: Pain 6-10 Last Admin: 08/25/20 16:04 Dose: 2 mg Documented by: Ondansetron HCl (Ondansetron 4 Mg/2 Ml Vial) 4 mg IV Q8H PRN PRN PRN Reason: NAUSEA/VOMITING Oxycodone HCl (Oxycodone 5 Mg Tablet) 5 mg PO Q4H PRN PRN PRN Reason: Pain Score 4-5 Last Admin: 08/26/20 08:38 Dose: 5 mg Documented by: Oxycodone HCl (Oxycodone 5 Mg Tablet) 10 mg PO Q4H PRN PRN PRN Reason: Pain Score 6-10/10 Last Admin: 08/27/20 08:37 Dose: 10 mg Documented by: Pantoprazole Sodium (Pantoprazole Sodium 20 Mg Tablet) 20 mg PO BREAKFAST [facility] Last Admin: 08/27/20 08:38 Dose: 20 mg Documented by: Polyethylene Glycol (Polyethylene Glycol 3350 17 Gm Packet) 17 gm PO DAILY PRN PRN Reason: Constipation Senna/Docusate Sodium (Senna/Docusate Sodium 1 Tablet) 2 tablet PO BID [facility] Last Admin: 08/27/20 10:47 Dose: 2 tablet Documented by: Sodium Chloride (0.9% Saline Lock 10 Ml Syringe) 10 - 40 ml IV UD PRN PRN Reason: SALINE FLUSH Last Admin: 08/26/20 03:04 Dose: 10 ml Documented by: Trazodone HCl (Trazodone 100 Mg Tablet) 300 mg PO QHS [facility] Last Admin: 08/26/20 21:24 Dose: 300 mg Documented by: STROKE Vital Signs/Narrative: Vital Signs Temp Pulse Resp BP Pulse Ox 08/27/20 08:56 98.8 F 95 18 104/71 99 Medical Necessity - Tobacco Use Smoking Status: Never smoker Assessment/Plan All Active Problems (Last Updated 08/20/20 @ 06:[address] Venkatesh Dan MD) Ankle fracture (Acute) Deterioration in ability to walk (Acute) Trimalleolar fracture of right ankle (Acute) Ankle pain (Acute) Fibromyalgia (Acute) Osteopenia (Acute) #Right ankle fracture with dislocation Podiatry on board. today is POD 6 for right ankle ORIF On IV morphine as needed for pain as well as acetaminophen and meloxicam and oxycodone PT OT on board. fall precautions Duplex ordered to day to rule out DVT o/a of complaint of right calf pain. #Fibromyalgia and PTSD stable #Vitamin D deficiency: on vitamin D supplementation 50,000 q7d. #Depression and anxiety: on wellbutrin and trazodone DVT prophylaxis: lovenox 40mg daily Disposition: awaiting placement in SNF Inpatient E&M: 20890 Subs Hosp L2
[2020-08-27 17:10] VITALS: BP 91/62; PULSE 97; RESP 16; TEMP 37.2; O2SAT 99
[2020-08-27] MEDS: traZODone 100 MG Tablet 300 MG PO (21:45)
[2020-08-27] MEDS: Doxazosin 1 MG Tablet 2 MG PO (21:46)
[2020-08-27] MEDS: hydrOXYzine PAM 25 MG Capsule 50 MG PO (21:46)
[2020-08-27 21:54] VITALS: BP 117/66; PULSE 103; RESP 18; TEMP 36.8; O2SAT 99
[2020-08-28 04:15] VITALS: BP 135/57; PULSE 101; RESP 16; TEMP 37.1; O2SAT 100
[2020-08-28] MEDS: oxyCODONE 5 MG Tablet 10 MG PO ×4 (04:36→22:24)
--- NOTE | 2020-08-28 08:35 | PCM.PN.HOSP ---
Patient Problems: Active and Suspected Problems (Last Updated 08/20/20 @ 06:[address] Venkatesh Dan MD) Ankle fracture (Acute) Deterioration in ability to walk (Acute) Trimalleolar fracture of right ankle (Acute) Ankle pain (Acute) Fibromyalgia (Acute) Osteopenia (Acute) Reason for Visit: Follow-up on right ankle fracture/anxiety/depression Subjective: Patient seen and examined. Multiple social complaints. Denies chest pain, dizziness, palpitations. Objective: Physical exam: General: Alert, Oriented x3, Cooperative, No apparent distress HEENT: Atraumatic, PERRLA, EOMI, Normocephalic Oral: Moist Mucosa Neck: Supple, No JVD, Negative Carotid Bruits Lungs: Clear to auscultation, Normal air movement Cardiovascular: Regular rate, Normal S2, No murmurs Abdomen: Bowel Sounds Present, Soft, Non Tender Extremities: - - RLE wrapped in bandage Skin: No rashes, No breakdown Lymphatic: No Cervical, Supraclavicular, or Inguinal Adenopathy Neurological: Cranial nerves II-XII grossly intact Psych/Mental Status: Normal Affect, Appropriate, Alert and oriented to time, place, person, mood and affect Vitals/I&O's: Vital Signs Temp Pulse Resp BP Pulse Ox 98.7 F 101 H 16 135/57 H 100 08/28/20 04:15 08/28/20 04:15 08/28/20 04:15 08/28/20 04:15 08/28/20 04:15 Oxygen Flow Rate (L/min) 2 Oxygen Delivery Method Room Air Weight: 94.6 kg Body Mass Index (BMI) 38.7 Intake and Output for Last 24 Hours 08/26/20 08/27/20 08/28/20 23:59 23:59 23:59 Intake Total 1800 / 1800 2350 / 2750 800 / 800 Balance 1800 / 1800 2350 / 2750 800 / 800 Current Medications Acetaminophen (Acetaminophen 325 Mg Tablet) 650 mg PO Q6H PRN PRN PRN Reason: Pain Score 1-10/Temp > 100.7 F Last Admin: 08/24/20 09:02 Dose: 650 mg Documented by: Bupropion HCl (Bupropion (Xl) 150 Mg Tablet.Xl) 450 mg PO DAILY [facility] Last Admin: 08/27/20 10:48 Dose: 450 mg Documented by: Cyclobenzaprine HCl (Cyclobenzaprine Hcl 10 Mg Tablet) 10 mg PO TID PRN PRN PRN Reason: MS Last Admin: 08/27/20 21:46 Dose: 10 mg Documented by: Doxazosin Mesylate (Doxazosin 1 Mg Tablet) 2 mg PO QHS [facility] Last Admin: 08/27/20 21:46 Dose: 2 mg Documented by: Enoxaparin Sodium (Enoxaparin 40 Mg/0.4 Ml Syringe) 40 mg SC DAILY [facility] Last Admin: 08/27/20 10:47 Dose: 40 mg Documented by: Ergocalciferol (Ergocalciferol 50,000 Unit Capsule) 50,000 unit PO Q7D [facility] Last Admin: 08/23/20 11:24 Dose: 50,000 unit Documented by: Gabapentin (Gabapentin 300 Mg Capsule) 300 mg PO TIDCM [facility] Last Admin: 08/27/20 17:12 Dose: 300 mg Documented by: Hydroxyzine Pamoate (Hydroxyzine Berenice 25 Mg Capsule) 50 mg PO 4X/DAY PRN PRN PRN Reason: ANXIETY Last Admin: 08/27/20 21:46 Dose: 50 mg Documented by: Sodium Chloride () 250 mls @ 15 mls/hr IV .[id number] PRN PRN Reason: Saline Flush Sodium Chloride () 250 mls @ 15 mls/hr IV .[id number] PRN PRN Reason: Additional IVPB Infusion Lamotrigine (Lamotrigine 100 Mg Tablet) 200 mg PO BID [facility] Last Admin: 08/27/20 21:46 Dose: 200 mg Documented by: Lorazepam (Lorazepam 1 Mg Tablet) 1 mg PO BID PRN PRN PRN Reason: ANXIETY UNRELIEVED BY [facility] Last Admin: 08/27/20 08:37 Dose: 1 mg Documented by: Meloxicam (Meloxicam 15 Mg Tablet) 15 mg PO BREAKFAST [facility] Last Admin: 08/27/20 08:38 Dose: 15 mg Documented by: Morphine Sulfate (Morphine 2 Mg/Ml Syringe) 2 mg IV Q4H PRN PRN PRN Reason: Pain 6-10 Last Admin: 08/25/20 16:04 Dose: 2 mg Documented by: Ondansetron HCl (Ondansetron 4 Mg/2 Ml Vial) 4 mg IV Q8H PRN PRN PRN Reason: NAUSEA/VOMITING Oxycodone HCl (Oxycodone 5 Mg Tablet) 5 mg PO Q4H PRN PRN PRN Reason: Pain Score 4-5 Last Admin: 08/26/20 08:38 Dose: 5 mg Documented by: Oxycodone HCl (Oxycodone 5 Mg Tablet) 10 mg PO Q4H PRN PRN PRN Reason: Pain Score 6-10/10 Last Admin: 08/28/20 04:36 Dose: 10 mg Documented by: Pantoprazole Sodium (Pantoprazole Sodium 20 Mg Tablet) 20 mg PO BREAKFAST [facility] Last Admin: 08/27/20 08:38 Dose: 20 mg Documented by: Polyethylene Glycol (Polyethylene Glycol 3350 17 Gm Packet) 17 gm PO DAILY PRN PRN Reason: Constipation Senna/Docusate Sodium (Senna/Docusate Sodium 1 Tablet) 2 tablet PO BID [facility] Last Admin: 08/27/20 21:46 Dose: 2 tablet Documented by: Sodium Chloride (0.9% Saline Lock 10 Ml Syringe) 10 - 40 ml IV UD PRN PRN Reason: SALINE FLUSH Last Admin: 08/26/20 03:04 Dose: 10 ml Documented by: Trazodone HCl (Trazodone 100 Mg Tablet) 300 mg PO QHS [facility] Last Admin: 08/27/20 21:45 Dose: 300 mg Documented by: Medical Necessity - Tobacco Use Smoking Status: Never smoker Assessment/Plan All Active Problems (Last Updated 08/20/20 @ 06:[address] Venkatesh Dan MD) Ankle fracture (Acute) Deterioration in ability to walk (Acute) Trimalleolar fracture of right ankle (Acute) Ankle pain (Acute) Fibromyalgia (Acute) Osteopenia (Acute) 1. POD #7 status post right ankle ORIF for right ankle fracture with dislocation Pain is fairly controlled, continue per podiatry recommendation 2. Right lower extremity swelling, postoperative related Acute DVT ruled out 3. Vitamin D deficiency, continue replacement 4. Anxiety/depression, continue on bupropion, Lamictal, trazodone, Ativan as needed 5. DVT prophylaxis with Lovenox subcu Inpatient E&M: 35384 Init Hosp L3
[2020-08-28] MEDS: Pantoprazole Sodium 20 MG Tablet PO (08:54)
[2020-08-28] MEDS: Gabapentin 300 MG Capsule PO ×3 (08:54→17:53)
[2020-08-28] MEDS: Meloxicam 15 MG Tablet PO (08:54)
[2020-08-28] MEDS: lamoTRIgine 100 MG Tablet 200 MG PO ×2 (08:55→21:09)
[2020-08-28] MEDS: Enoxaparin 40 MG/0.4 ML Syringe SC (08:55)
[2020-08-28 08:56] VITALS: BP 118/58; PULSE 99; RESP 18; TEMP 36.7; O2SAT 97
[2020-08-28] MEDS: Senna/Docusate Sodium 1 Tablet 2 TABLET PO ×2 (08:56→21:09)
[2020-08-28] MEDS: buPROPion (XL) 150 MG TABLET.XL 450 MG PO (08:57)
[2020-08-28] MEDS: LORazepam 1 MG Tablet PO (09:00)
[2020-08-28] MEDS: cycloBENZAPRine HCl 10 MG Tablet PO ×2 (09:00→21:04)
--- NOTE | 2020-08-28 09:44 | CASEMGMT ---
Addendum entered by Kimi Saba 08/28/20 11:35: SW received call from [facility]. Pt's case has been assigned to harvesting contractor and then it goes to state reviewer and then results will be faxed to this worker. Clinicals need to be faxed to [phone]. Clinicals faxed. Addendum entered by Kimi Saba 08/28/20 10:53: JEANNE received call from Kaity at [facility] stating pre-cert has been obtained. JEANNE updated Kaity that this worker will get in contact with [facility] for update. JEANNE placed a call to [facility] and left message regarding PAS/RR results. JEANNE also emailed [facility] and updated [facility] that pt is medically ready for discharge and pre-cert has been obtained, just waiting for PAS/RR results. Original Note: Social Work Note JEANNE faxed updated clinicals to [facility]. Pt still needs pre-cert and approval from [facility] before pt is able to discharge. SW to continue to follow. Kimi Saba CASTING WHEEL OPERATOR HELPER, JOB COMPOSITOR
[2020-08-28] MEDS: Acetaminophen 325 MG Tablet 650 MG PO (11:03)
[2020-08-28 12:37] VITALS: BP 137/71; PULSE 99; RESP 18; TEMP 36.7; O2SAT 98
--- NOTE | 2020-08-28 13:23 | CASEMGMT ---
Addendum entered by Kimi Saba 08/28/20 13:48: SW did provide [facility] with phone listed on pt's chart and also pt's direct room number. Addendum entered by Kimi Saba 08/28/20 13:45: SW in to speak with pt. SW updated pt that [facility] will be calling pt. SW explained [facility] to pt. SW explained that once approval is granted through [facility] pt is able to discharge as pre-cert was obtained. Pt states understanding. SW informed pt to answer her phone when [facility] calls. Original Note: Social Work Note SW received call from Darien at [facility]. JEANNE updated Darien that clinicals were faxed this morning. Darien asked this worker questions regarding pt, SW answered questions. Darien states she plans on calling pt as well to check in with pt. Kimi Saba BLACK PULLER, INTERLOCKING PAVEMENT INSTALLER
--- NOTE | 2020-08-28 16:24 | PCM.PROGNOTE ---
Patient Problems: Active and Suspected Problems (Last Updated 08/20/20 @ 06:[address] Venkatesh Dan MD) Ankle fracture (Acute) Deterioration in ability to walk (Acute) Trimalleolar fracture of right ankle (Acute) Ankle pain (Acute) Fibromyalgia (Acute) Osteopenia (Acute) Subjective: Patient seen and examined bedside. Patient denies any new pedal complaints. Patient denies any nausea, fever, chills, chest pain, shortness of breath, cough, streaking, purulence, vomiting, calf pain. Pain to right ankle seems to be controlled with medication - Physical Exam Vitals/I&O's: Vital Signs Temp Pulse Resp BP Pulse Ox 98.0 F 99 18 137/71 H 98 08/28/20 12:37 08/28/20 12:37 08/28/20 12:37 08/28/20 12:37 08/28/20 12:37 Oxygen Flow Rate (L/min) 2 Oxygen Delivery Method Room Air Weight: 94.6 kg Body Mass Index (BMI) 38.7 Intake and Output for Last 24 Hours 08/26/20 08/27/20 08/28/20 23:59 23:59 23:59 Intake Total 1800 / 1800 2350 / 2750 800 / 800 Balance 1800 / 1800 2350 / 2750 800 / 800 General: Alert, Oriented x3 HEENT: Atraumatic Abdomen: Obese Extremities: No clubbing, No cyanosis, Capillary Refill Less than 3 Seconds, Edema, Tenderness - right ankle, - - right foot posterior splint dressing clean, dry, intact Skin: Incision - medial and lateral right ankle Musculoskeletal: Muscle Wasting, Tenderness, - - Patient able to move all right toes without pain Neurological: Sensory exam intact to light touch and pain Psych/Mental Status: Normal Affect Current Medications Acetaminophen (Acetaminophen 325 Mg Tablet) 650 mg PO Q6H PRN PRN PRN Reason: Pain Score 1-10/Temp > 100.7 F Last Admin: 08/28/20 11:03 Dose: 650 mg Documented by: Bupropion HCl (Bupropion (Xl) 150 Mg Tablet.Xl) 450 mg PO DAILY PATTIE Last Admin: 08/28/20 08:57 Dose: 450 mg Documented by: Cyclobenzaprine HCl (Cyclobenzaprine Hcl 10 Mg Tablet) 10 mg PO TID PRN PRN PRN Reason: MS Last Admin: 08/28/20 09:00 Dose: 10 mg Documented by: Doxazosin Mesylate (Doxazosin 1 Mg Tablet) 2 mg PO QHS [facility] Last Admin: 08/27/20 21:46 Dose: 2 mg Documented by: Enoxaparin Sodium (Enoxaparin 40 Mg/0.4 Ml Syringe) 40 mg SC DAILY [facility] Last Admin: 08/28/20 08:55 Dose: 40 mg Documented by: Ergocalciferol (Ergocalciferol 50,000 Unit Capsule) 50,000 unit PO Q7D [facility] Last Admin: 08/23/20 11:24 Dose: 50,000 unit Documented by: Gabapentin (Gabapentin 300 Mg Capsule) 300 mg PO TIDCM [facility] Last Admin: 08/28/20 11:03 Dose: 300 mg Documented by: Hydroxyzine Pamoate (Hydroxyzine Berenice 25 Mg Capsule) 50 mg PO 4X/DAY PRN PRN PRN Reason: ANXIETY Last Admin: 08/27/20 21:46 Dose: 50 mg Documented by: Sodium Chloride () 250 mls @ 15 mls/hr IV .[id number] PRN PRN Reason: Saline Flush Sodium Chloride () 250 mls @ 15 mls/hr IV .[id number] PRN PRN Reason: Additional IVPB Infusion Lamotrigine (Lamotrigine 100 Mg Tablet) 200 mg PO BID [facility] Last Admin: 08/28/20 08:55 Dose: 200 mg Documented by: Lorazepam (Lorazepam 1 Mg Tablet) 1 mg PO BID PRN PRN PRN Reason: ANXIETY UNRELIEVED BY VISTARIL Last Admin: 08/28/20 09:00 Dose: 1 mg Documented by: Meloxicam (Meloxicam 15 Mg Tablet) 15 mg PO BREAKFAST [facility] Last Admin: 08/28/20 08:54 Dose: 15 mg Documented by: Morphine Sulfate (Morphine 2 Mg/Ml Syringe) 2 mg IV Q4H PRN PRN PRN Reason: Pain 6-10 Last Admin: 08/25/20 16:04 Dose: 2 mg Documented by: Ondansetron HCl (Ondansetron 4 Mg/2 Ml Vial) 4 mg IV Q8H PRN PRN PRN Reason: NAUSEA/VOMITING Oxycodone HCl (Oxycodone 5 Mg Tablet) 5 mg PO Q4H PRN PRN PRN Reason: Pain Score 4-5 Last Admin: 08/26/20 08:38 Dose: 5 mg Documented by: Oxycodone HCl (Oxycodone 5 Mg Tablet) 10 mg PO Q4H PRN PRN PRN Reason: Pain Score 6-10/10 Last Admin: 08/28/20 09:00 Dose: 10 mg Documented by: Pantoprazole Sodium (Pantoprazole Sodium 20 Mg Tablet) 20 mg PO BREAKFAST [facility] Last Admin: 08/28/20 08:54 Dose: 20 mg Documented by: Polyethylene Glycol (Polyethylene Glycol 3350 17 Gm Packet) 17 gm PO DAILY PRN PRN Reason: Constipation Senna/Docusate Sodium (Senna/Docusate Sodium 1 Tablet) 2 tablet PO BID [facility] Last Admin: 08/28/20 08:56 Dose: 2 tablet Documented by: Sodium Chloride (0.9% Saline Lock 10 Ml Syringe) 10 - 40 ml IV UD PRN PRN Reason: SALINE FLUSH Last Admin: 08/26/20 03:04 Dose: 10 ml Documented by: Trazodone HCl (Trazodone 100 Mg Tablet) 300 mg PO QHS [facility] Last Admin: 08/27/20 21:45 Dose: 300 mg Documented by: Medical Necessity - Tobacco Use Smoking Status: Never smoker Assessment/Plan All Active Problems (Last Updated 08/20/20 @ 06:[address] Venkatesh Dan MD) Ankle fracture (Acute) Deterioration in ability to walk (Acute) Trimalleolar fracture of right ankle (Acute) Ankle pain (Acute) Fibromyalgia (Acute) Osteopenia (Acute) Try malleolus right ankle fracture is post ORIF 08/21/2020 Right ankle pain osteopenia Fibromyalgia hypovitamintosis Vitamin D History of chronic ankle sprains History of chronic/significant anorexia History of eating disorders History anxiety/psych conditions Patient seen and examined bedside Discussed that her vitamin D levels were below average at 27.8 and discuss upping her supplementation levels to encourage proper bone healing. Patient to do weekly 50,000 units vit D Reviewed with the patient the normal course of healing. Discussed with patient is can have to be nonweightbearing for about 2 months to her right lower extremity. Discussed that a cast will go on at a later date once postoperative swelling is better controlled. Dressing clean, dry, and intact NWB right foot Due to patient following once already after fracturing her ankle patient was considered a high fall risk and would likely benefit from placement of facility during her rehabilitation Patient will follow up in office for suture removal and continued care sometime next week Awaiting SNF placement precert for DC Rx given for percocet, lovenox, and vitamin D Podiatry will continue to follow please contact if any questions or concerns Chuyita Robles DPM [facility] [phone] This note was generated with [employer] dictation software. It may contain incorrect words, spelling, and punctuation that were not noted in checking the note before signing.
[2020-08-28 21:05] VITALS: BP 112/65; PULSE 85; RESP 16; TEMP 36.9; O2SAT 100
[2020-08-28] MEDS: Doxazosin 1 MG Tablet 2 MG PO (21:09)
[2020-08-28] MEDS: traZODone 100 MG Tablet 300 MG PO (21:09)
[2020-08-28] MEDS: hydrOXYzine PAM 25 MG Capsule 50 MG PO (21:20)
[2020-08-29] MEDS: cycloBENZAPRine HCl 10 MG Tablet PO ×2 (01:54→09:30)
[2020-08-29 01:55] VITALS: BP 122/67; PULSE 85; RESP 18; TEMP 36.5; O2SAT 95
[2020-08-29] MEDS: oxyCODONE 5 MG Tablet 10 MG PO ×4 (06:39→21:21)
--- NOTE | 2020-08-29 07:33 | PCM.PN.HOSP ---
Patient Problems: Active and Suspected Problems (Last Updated 08/20/20 @ 06:[address] Venkatesh Dan MD) Ankle fracture (Acute) Deterioration in ability to walk (Acute) Trimalleolar fracture of right ankle (Acute) Ankle pain (Acute) Fibromyalgia (Acute) Osteopenia (Acute) Reason for Visit: Follow-up on right ankle fracture/anxiety/depression Subjective: Patient was seen and examined. No new complaints today. Pain is controlled. Discharge planning ongoing. Objective: Physical exam: General: Alert, Oriented x3, Cooperative, No apparent distress HEENT: Atraumatic, PERRLA, EOMI, Normocephalic Oral: Moist Mucosa Neck: Supple, No JVD, Negative Carotid Bruits Lungs: Clear to auscultation, Normal air movement Cardiovascular: Regular rate, Normal S2, No murmurs Abdomen: Bowel Sounds Present, Soft, Non Tender Extremities: - - RLE wrapped in bandage Skin: No rashes, No breakdown Lymphatic: No Cervical, Supraclavicular, or Inguinal Adenopathy Neurological: Cranial nerves II-XII grossly intact Psych/Mental Status: Normal Affect, Appropriate, Alert and oriented to time, place, person, mood and affect Vitals/I&O's: Vital Signs Temp Pulse Resp BP Pulse Ox 97.7 F L 85 18 122/67 H 95 08/29/20 01:55 08/29/20 01:55 08/29/20 01:55 08/29/20 01:55 08/29/20 01:55 Oxygen Flow Rate (L/min) 2 Oxygen Delivery Method Room Air Weight: 94.6 kg Body Mass Index (BMI) 38.7 Intake and Output for Last 24 Hours 08/27/20 08/28/20 08/29/20 23:59 23:59 23:59 Intake Total 2350 / 2750 800 / 800 600 / 600 Balance 2350 / 2750 800 / 800 600 / 600 Current Medications Acetaminophen (Acetaminophen 325 Mg Tablet) 650 mg PO Q6H PRN PRN PRN Reason: Pain Score 1-10/Temp > 100.7 F Last Admin: 08/28/20 11:03 Dose: 650 mg Documented by: Bupropion HCl (Bupropion (Xl) 150 Mg Tablet.Xl) 450 mg PO DAILY PATTIE Last Admin: 08/28/20 08:57 Dose: 450 mg Documented by: Cyclobenzaprine HCl (Cyclobenzaprine Hcl 10 Mg Tablet) 10 mg PO TID PRN PRN PRN Reason: MS Last Admin: 08/29/20 01:54 Dose: 10 mg Documented by: Doxazosin Mesylate (Doxazosin 1 Mg Tablet) 2 mg PO QHS [facility] Last Admin: 08/28/20 21:09 Dose: 2 mg Documented by: Enoxaparin Sodium (Enoxaparin 40 Mg/0.4 Ml Syringe) 40 mg SC DAILY [facility] Last Admin: 08/28/20 08:55 Dose: 40 mg Documented by: Ergocalciferol (Ergocalciferol 50,000 Unit Capsule) 50,000 unit PO Q7D [facility] Last Admin: 08/23/20 11:24 Dose: 50,000 unit Documented by: Gabapentin (Gabapentin 300 Mg Capsule) 300 mg PO TIDCM [facility] Last Admin: 08/28/20 17:53 Dose: 300 mg Documented by: Hydroxyzine Pamoate (Hydroxyzine Berenice 25 Mg Capsule) 50 mg PO 4X/DAY PRN PRN PRN Reason: ANXIETY Last Admin: 08/28/20 21:20 Dose: 50 mg Documented by: Sodium Chloride () 250 mls @ 15 mls/hr IV .[id number] PRN PRN Reason: Saline Flush Sodium Chloride () 250 mls @ 15 mls/hr IV .[id number] PRN PRN Reason: Additional IVPB Infusion Lamotrigine (Lamotrigine 100 Mg Tablet) 200 mg PO BID [facility] Last Admin: 08/28/20 21:09 Dose: 200 mg Documented by: Lorazepam (Lorazepam 1 Mg Tablet) 1 mg PO BID PRN PRN PRN Reason: ANXIETY UNRELIEVED BY VISTARIL Last Admin: 08/28/20 09:00 Dose: 1 mg Documented by: Meloxicam (Meloxicam 15 Mg Tablet) 15 mg PO BREAKFAST [facility] Last Admin: 08/28/20 08:54 Dose: 15 mg Documented by: Morphine Sulfate (Morphine 2 Mg/Ml Syringe) 2 mg IV Q4H PRN PRN PRN Reason: Pain 6-10 Last Admin: 08/25/20 16:04 Dose: 2 mg Documented by: Ondansetron HCl (Ondansetron 4 Mg/2 Ml Vial) 4 mg IV Q8H PRN PRN PRN Reason: NAUSEA/VOMITING Oxycodone HCl (Oxycodone 5 Mg Tablet) 5 mg PO Q4H PRN PRN PRN Reason: Pain Score 4-5 Last Admin: 08/26/20 08:38 Dose: 5 mg Documented by: Oxycodone HCl (Oxycodone 5 Mg Tablet) 10 mg PO Q4H PRN PRN PRN Reason: Pain Score 6-10/10 Last Admin: 08/29/20 06:39 Dose: 10 mg Documented by: Pantoprazole Sodium (Pantoprazole Sodium 20 Mg Tablet) 20 mg PO BREAKFAST [facility] Last Admin: 08/28/20 08:54 Dose: 20 mg Documented by: Polyethylene Glycol (Polyethylene Glycol 3350 17 Gm Packet) 17 gm PO DAILY PRN PRN Reason: Constipation Senna/Docusate Sodium (Senna/Docusate Sodium 1 Tablet) 2 tablet PO BID [facility] Last Admin: 08/28/20 21:09 Dose: 2 tablet Documented by: Sodium Chloride (0.9% Saline Lock 10 Ml Syringe) 10 - 40 ml IV UD PRN PRN Reason: SALINE FLUSH Last Admin: 08/26/20 03:04 Dose: 10 ml Documented by: Trazodone HCl (Trazodone 100 Mg Tablet) 300 mg PO QHS [facility] Last Admin: 08/28/20 21:09 Dose: 300 mg Documented by: Medical Necessity - Tobacco Use Smoking Status: Never smoker Assessment/Plan All Active Problems (Last Updated 08/20/20 @ 06:[address] Venkatesh Dan MD) Ankle fracture (Acute) Deterioration in ability to walk (Acute) Trimalleolar fracture of right ankle (Acute) Ankle pain (Acute) Fibromyalgia (Acute) Osteopenia (Acute) 1. POD #8 status post right ankle ORIF for right ankle fracture with dislocation Pain is fairly controlled, continue per podiatry recommendation 2. Right lower extremity swelling, postoperative related Acute DVT ruled out 3. Vitamin D deficiency, continue replacement 4. Anxiety/depression, continue on bupropion, Lamictal, trazodone, Ativan as needed 5. DVT prophylaxis with Lovenox subcu Inpatient E&M: [id number] [facility] Hosp L2
--- NOTE | 2020-08-29 08:48 | PCM.PROGNOTE ---
Patient Problems: Active and Suspected Problems (Last Updated 08/20/20 @ 06:[address] Venkatesh Dan MD) Ankle fracture (Acute) Deterioration in ability to walk (Acute) Trimalleolar fracture of right ankle (Acute) Ankle pain (Acute) Fibromyalgia (Acute) Osteopenia (Acute) Subjective: Patient seen and examined bedside. Patient denies any new pedal complaints. Patient denies any nausea, fever, chills, chest pain, shortness of breath, cough, streaking, purulence, vomiting. Patient states pain is well controlled. She is having some itchiness near the incision sites. She relates some frustration at not being discharged to facility yesterday - Physical Exam Vitals/I&O's: Vital Signs Temp Pulse Resp BP Pulse Ox 97.7 F L 85 18 122/67 H 95 08/29/20 01:55 08/29/20 01:55 08/29/20 01:55 08/29/20 01:55 08/29/20 01:55 Oxygen Flow Rate (L/min) 2 Oxygen Delivery Method Room Air Weight: 94.6 kg Body Mass Index (BMI) 38.7 Intake and Output for Last 24 Hours 08/27/20 08/28/20 08/29/20 23:59 23:59 23:59 Intake Total 2350 / 2750 800 / 800 600 / 600 Balance 2350 / 2750 800 / 800 600 / 600 General: Alert, Oriented x3 HEENT: Atraumatic Abdomen: Obese Extremities: No clubbing, No cyanosis, Capillary Refill Less than 3 Seconds, No Calf Tenderness, Edema, Tenderness - Anterior medial lateral right ankle Skin: Incision - Medial and lateral right ankle, - - Posterior splint is clean dry and intact to right lower extremity Musculoskeletal: Muscle Wasting, Tenderness - Right ankle, - - Patient is able to wiggle toes with minimal pain Neurological: Sensory exam intact to light touch and pain Psych/Mental Status: Normal Affect, Appropriate Current Medications Acetaminophen (Acetaminophen 325 Mg Tablet) 650 mg PO Q6H PRN PRN PRN Reason: Pain Score 1-10/Temp > 100.7 F Last Admin: 08/28/20 11:03 Dose: 650 mg Documented by: Bupropion HCl (Bupropion (Xl) 150 Mg Tablet.Xl) 450 mg PO DAILY PATTIE Last Admin: 08/28/20 08:57 Dose: 450 mg Documented by: Cyclobenzaprine HCl (Cyclobenzaprine Hcl 10 Mg Tablet) 10 mg PO TID PRN PRN PRN Reason: MS Last Admin: 08/29/20 01:54 Dose: 10 mg Documented by: Doxazosin Mesylate (Doxazosin 1 Mg Tablet) 2 mg PO QHS [facility] Last Admin: 08/28/20 21:09 Dose: 2 mg Documented by: Enoxaparin Sodium (Enoxaparin 40 Mg/0.4 Ml Syringe) 40 mg SC DAILY [facility] Last Admin: 08/28/20 08:55 Dose: 40 mg Documented by: Ergocalciferol (Ergocalciferol 50,000 Unit Capsule) 50,000 unit PO Q7D [facility] Last Admin: 08/23/20 11:24 Dose: 50,000 unit Documented by: Gabapentin (Gabapentin 300 Mg Capsule) 300 mg PO TIDCM [facility] Last Admin: 08/28/20 17:53 Dose: 300 mg Documented by: Hydroxyzine Pamoate (Hydroxyzine Berenice 25 Mg Capsule) 50 mg PO 4X/DAY PRN PRN PRN Reason: ANXIETY Last Admin: 08/28/20 21:20 Dose: 50 mg Documented by: Sodium Chloride () 250 mls @ 15 mls/hr IV .[id number] PRN PRN Reason: Saline Flush Sodium Chloride () 250 mls @ 15 mls/hr IV .[id number] PRN PRN Reason: Additional IVPB Infusion Lamotrigine (Lamotrigine 100 Mg Tablet) 200 mg PO BID [facility] Last Admin: 08/28/20 21:09 Dose: 200 mg Documented by: Lorazepam (Lorazepam 1 Mg Tablet) 1 mg PO BID PRN PRN PRN Reason: ANXIETY UNRELIEVED BY VISTARIL Last Admin: 08/28/20 09:00 Dose: 1 mg Documented by: Meloxicam (Meloxicam 15 Mg Tablet) 15 mg PO BREAKFAST [facility] Last Admin: 08/28/20 08:54 Dose: 15 mg Documented by: Morphine Sulfate (Morphine 2 Mg/Ml Syringe) 2 mg IV Q4H PRN PRN PRN Reason: Pain 6-10 Last Admin: 08/25/20 16:04 Dose: 2 mg Documented by: Ondansetron HCl (Ondansetron 4 Mg/2 Ml Vial) 4 mg IV Q8H PRN PRN PRN Reason: NAUSEA/VOMITING Oxycodone HCl (Oxycodone 5 Mg Tablet) 5 mg PO Q4H PRN PRN PRN Reason: Pain Score 4-5 Last Admin: 08/26/20 08:38 Dose: 5 mg Documented by: Oxycodone HCl (Oxycodone 5 Mg Tablet) 10 mg PO Q4H PRN PRN PRN Reason: Pain Score 6-10/10 Last Admin: 08/29/20 06:39 Dose: 10 mg Documented by: Pantoprazole Sodium (Pantoprazole Sodium 20 Mg Tablet) 20 mg PO BREAKFAST [facility] Last Admin: 08/28/20 08:54 Dose: 20 mg Documented by: Polyethylene Glycol (Polyethylene Glycol 3350 17 Gm Packet) 17 gm PO DAILY PRN PRN Reason: Constipation Senna/Docusate Sodium (Senna/Docusate Sodium 1 Tablet) 2 tablet PO BID [facility] Last Admin: 08/28/20 21:09 Dose: 2 tablet Documented by: Sodium Chloride (0.9% Saline Lock 10 Ml Syringe) 10 - 40 ml IV UD PRN PRN Reason: SALINE FLUSH Last Admin: 08/26/20 03:04 Dose: 10 ml Documented by: Trazodone HCl (Trazodone 100 Mg Tablet) 300 mg PO QHS [facility] Last Admin: 08/28/20 21:09 Dose: 300 mg Documented by: Medical Necessity - Tobacco Use Smoking Status: Never smoker Assessment/Plan All Active Problems (Last Updated 08/20/20 @ 06:[address] Venkatesh Dan MD) Ankle fracture (Acute) Deterioration in ability to walk (Acute) Trimalleolar fracture of right ankle (Acute) Ankle pain (Acute) Fibromyalgia (Acute) Osteopenia (Acute) Try malleolus right ankle fracture is post ORIF 08/21/2020 Right ankle pain osteopenia Fibromyalgia hypovitamintosis Vitamin D History of chronic ankle sprains History of chronic/significant anorexia History of eating disorders History anxiety/psych conditions Patient seen and examined bedside Discussed that her vitamin D levels were below average at 27.8 and discuss upping her supplementation levels to encourage proper bone healing. Patient to do weekly 50,000 units vit D Reviewed with the patient the normal course of healing. Discussed with patient is can have to be nonweightbearing for about 2 months to her right lower extremity. Discussed that a cast will go on at a later date once postoperative swelling is better controlled. Dressing clean, dry, and intact NWB right foot Due to patient following once already after fracturing her ankle patient was considered a high fall risk and would likely benefit from placement of facility during her rehabilitation Patient will follow up in office for suture removal and continued care sometime next week Awaiting SNF placement precert for DC Rx given for percocet, lovenox, and vitamin D Podiatry will continue to follow please contact if any questions or concerns Chuyita Robles DPM [facility] [phone] This note was generated with [employer] dictation software. It may contain incorrect words, spelling, and punctuation that were not noted in checking the note before signing.
[2020-08-29 09:20] VITALS: BP 113/74; PULSE 88; RESP 16; TEMP 36.9; O2SAT 100
--- NOTE | 2020-08-29 09:24 | CASEMGMT ---
Addendum entered by Kimi Saba 08/29/20 15:44: SW received call from Kaity at [facility] stating pre-cert yesterday. It's been decided to wait for results from [facility] and then [facility] will resubmit for pre-cert again. Addendum entered by Kimi Saba 08/29/20 15:20: SW placed a call to [facility] to make sure clinicals were received. [facility] requested clinicals be faxed again as they haven't received documents yet. [facility] at around 1:00pm and SW received fax confirmation at 1:14pm that clinicals were sent. SW refaxed clinicals again to [facility]. Addendum entered by Kimi Saba 08/29/20 15:11: SW placed a call to Kaity at [facility] and left message requesting call back inquiring how long pt's pre-cert is good for as this worker still hasn't received results yet from [facility]. SW waiting for call back. Addendum entered by Kimi Saba 08/29/20 12:54: Pt requesting to speak to this worker. SW in to speak with pt. SW updated pt that SW is still waiting for results from [facility] and that pt cannot discharge from [facility] until results are available. SW explained that it is not insurance that is holding pt up now, it is [facility]. Pt states she spoke with [facility] today. SW informed pt that this worker will update pt as soon as this worker gets results from [facility]. JEANNE then received message from Brionna at [facility] stating they only have PT/OT notes, requests additional information. It should be noted that this [facility] Kimi Saba DOCENT COORDINATOR, EXECUTIVE VP Original Note: Social Work Note SW checked [facility] website for results from [facility], no results available yet. SW waiting for results/determination from [facility]. Pt cannot discharge from [facility] until results from [facility] are obtained. SW to continue to follow. Kimi BARR, EXECUTIVE VP
[2020-08-29] MEDS: Gabapentin 300 MG Capsule PO ×3 (09:28→17:24)
[2020-08-29] MEDS: Pantoprazole Sodium 20 MG Tablet PO (09:28)
[2020-08-29] MEDS: lamoTRIgine 100 MG Tablet 200 MG PO ×2 (09:29→21:17)
[2020-08-29] MEDS: Meloxicam 15 MG Tablet PO (09:29)
[2020-08-29] MEDS: buPROPion (XL) 150 MG TABLET.XL 450 MG PO (09:29)
[2020-08-29] MEDS: hydrOXYzine PAM 25 MG Capsule 50 MG PO ×2 (09:29→19:25)
[2020-08-29] MEDS: Senna/Docusate Sodium 1 Tablet 2 TABLET PO ×2 (09:29→21:17)
[2020-08-29] MEDS: Enoxaparin 40 MG/0.4 ML Syringe SC (09:30)
[2020-08-29 14:00] VITALS: BP 114/77; PULSE 94; RESP 16; TEMP 37.3; O2SAT 100
--- NOTE | 2020-08-29 19:46 | NURSING ---
reviewed and agree with documentation by CASI Sam
[2020-08-29 20:00] VITALS: BP 124/71; PULSE 87; RESP 18; TEMP 37.2; O2SAT 100
[2020-08-29] MEDS: traZODone 100 MG Tablet 300 MG PO (21:17)
[2020-08-29] MEDS: Doxazosin 1 MG Tablet 2 MG PO (21:17)
[2020-08-29] MEDS: LORazepam 1 MG Tablet PO (22:17)
[2020-08-30] MEDS: oxyCODONE 5 MG Tablet 10 MG PO ×4 (01:58→16:55)
[2020-08-30 02:00] VITALS: BP 106/68; PULSE 84; RESP 16; TEMP 36.6; O2SAT 97
--- NOTE | 2020-08-30 09:07 | CASEMGMT ---
Addendum entered by Kimi Saba 08/30/20 13:27: SW updated pt that [facility] has approved pt but pre-cert has so pre-cert was resubmitted today. Pt states understanding, thanked this worker for the update. Addendum entered by Kimi Saba 08/30/20 10:56: JEANNE placed another call to Kaity at [facility]. Kaity states she got the fax but hasn't reviewed the clinicals yet. SW informed Kaity that [facility] has approved pt for SNF (these results have been faxed) and asked Kaity to resubmit for pre-cert. Kaity states she will do so. Original Note: Social Work Note SW received faxed from [facility] stating they have approved pt for SNF placement. JEANNE placed a call to [facility], Kaity not available at this time, SW left message for Kaity to call this worker back. JEANNE faxed updated clinicals to [facility], wrote on fax coversheet to resubmit for pre-cert. Plan: [facility] pending pre-cert Kimi Saba TIE HACKER, METAL FORGER'S ASSISTANT
[2020-08-30 09:45] VITALS: BP 110/61; PULSE 92; RESP 18; TEMP 36.8; O2SAT 98
[2020-08-30] MEDS: hydrOXYzine PAM 25 MG Capsule 50 MG PO (10:02)
[2020-08-30] MEDS: cycloBENZAPRine HCl 10 MG Tablet PO (10:02)
[2020-08-30] MEDS: Meloxicam 15 MG Tablet PO (10:03)
[2020-08-30] MEDS: Senna/Docusate Sodium 1 Tablet 2 TABLET PO (10:03)
[2020-08-30] MEDS: Pantoprazole Sodium 20 MG Tablet PO (10:03)
[2020-08-30] MEDS: lamoTRIgine 100 MG Tablet 200 MG PO (10:03)
[2020-08-30] MEDS: Gabapentin 300 MG Capsule PO ×2 (10:03→12:46)
[2020-08-30] MEDS: buPROPion (XL) 150 MG TABLET.XL 450 MG PO (10:04)
[2020-08-30] MEDS: Enoxaparin 40 MG/0.4 ML Syringe SC (10:05)
[2020-08-30 13:06] VITALS: BP 106/64; PULSE 99; RESP 16; TEMP 36.6; O2SAT 98
--- NOTE | 2020-08-30 14:29 | CASEMGMT ---
Addendum entered by Precious Henriquez 08/30/20 16:38: Received precert. Pt notified of DC this date. Orders completed. Transport scheduled with [facility] for cot at 5-5:15 pm. Spoke with Kaity of DC and transport time. Kaity agreeable. Plan: DC to [facility] 08/30 via cot Original Note: Social Work Note JEANNE attempted to call Kaity at [place] for update, Kaity not available, message relayed to call this worker back. JEANNE updated charge nurse that pt will need another COVID test. SW is leaving soon for the day. SW placed green sheet, transport form, COVID screening tool, PAS/RR on pt's chart. SW placed [facility] results and PAS/RR in SNF folder. JEANNE received call from Kaity at [facility]. Kaity is not sure if she will receive pre-cert today or not. JEANNE updated Kaity that this worker is leaving for the day at 3:00pm, informed Kaity to call [facility] number in the event pre-cert is obtained after this worker leaves for the day. [facility] number provided. Pt wrote on green sheet that pt will also need results of COVID test back before pt can discharge. Plan: [facility] pending pre-cert Kimi Saba REPAIRER CONTROLLER TESTER, LAB ANIMAL TECHNOLOGIST
--- NOTE | 2020-08-30 14:55 | DCINST_ITS ---
- Discharge Diagnoses Current Active Problems: Current Active and Chronic Problems (Last Updated 08/20/20 @ 06:[address] Venkatesh Dan MD) Ankle fracture (Acute) Deterioration in ability to walk (Acute) Trimalleolar fracture of right ankle (Acute) Ankle pain (Acute) Fibromyalgia (Acute) Osteopenia (Acute) Reason(s) for Visit for Discharge Instructions: Right ankle fracture You will use the following diet at home:: Regular Your food should be the consistency of: Regular Your liquids should be the consistency of: Regular/Thin Discharge Activity: May Not Drive, May not drive while taking narcotic pain medications., May Shower - Keep dressing clean dry and intact, Use Walker, - Weight Bearing Status: No weight bearing - Right leg Keep extremity elevated above heart level: Operative Extremity, Right Leg Call your doctor if your incision/area has: Sudden Increased Bleeding, Increased Pain/ Swelling, Foul Smelling Discharge Call your doctor if you observe: Fever of 101 or Higher, Shortness of breath, Chest pain Cleanse incision/area with: Keep Dressing Clean & Dry - Dressing was last changed on 08/25/2020 with some serosanguineous drainage noted to dressing no active bleeding noted. Neurovascular status intact some ecchymosis noted to plantar foot Additional Instructions: Continue per podiatry recommendations. Allergies/Adverse Reactions: Allergies balsam donald Allergy (Verified 08/20/20 04:39) Hives divalproex sodium [From Depakote] Allergy (Verified 08/20/20 04:39) Swelling propylene glycol Allergy (Verified 08/20/20 04:39) Hives thimerosal Allergy (Verified 08/20/20 04:39) Hives TOPAMAX Adverse Reaction (Uncoded 08/20/20 06:15) pt doesn't tolerate it Medications to take at Discharge Prazosin HCl [Minipress] 2 mg PO QHS 02/28/14 Hydroxyzine Pamoate [Vistaril] 50 mg PO 4X/DAY PRN PRN 07/02/14 Meloxicam [Mobic] 15 mg PO BREAKFAST 07/05/14 buPROPion XL [Wellbutrin Xl] 450 mg PO DAILY 07/05/14 Lamotrigine [Lamictal] 200 mg PO BID 09/09/14 cycloBENZAPRine HCl [Flexeril] 10 mg PO TID PRN #20 tab 01/16/15 Docusate Sodium [Colace] 200 mg PO BID 07/16/15 Lansoprazole [Prevacid] 15 mg PO BREAKFAST 07/16/15 Trazodone HCl 300 mg PO QHS 12/15/15 Enoxaparin [Lovenox] 40 mg SC DAILY #30 syringe 08/25/20 Ergocalciferol [Vitamin D] 50,000 unit PO Q7D #30 cap 08/25/20 Gabapentin [Neurontin] 300 mg PO TIDCM cap 08/25/20 Oxycodone HCl/Acetaminophen [Percocet 5-325] 1 tab PO Q6H PRN PRN 7 Days #28 tab 08/25/20 Acetaminophen [Tylenol Tablet] 650 mg PO Q6H PRN PRN tab 08/30/20 Lorazepam [Ativan] 1 mg PO BID PRN PRN 5 Days #10 tab 08/30/20 The following prescriptions were given: Lorazepam [Ativan] 1 mg PO BID PRN PRN 5 Days #10 tab PRN Reason: Anxiety Enoxaparin [Lovenox] 40 mg SC DAILY #30 syringe Prescription Printed Oxycodone HCl/Acetaminophen [Percocet 5-325] 1 tab PO Q6H PRN PRN 7 Days #28 tab PRN Reason: Pain Score 6-10 Prescription Printed Ergocalciferol [Vitamin D] 50,000 unit PO Q7D #30 cap Prescription Printed Primary Care Physician: April Aguilar MD [Primary Care Provider] - Please follow up with your Primary Care Physician in: within 1-2 weeks Test Results: Test results from this visit will be discussed in further detail at your follow- up appointment, if applicable. Please Follow Up With: Chuyita Robles DPM - week of Sep 04, 2020 When: as scheduled Proposed Discharge Date: 08/30/20
--- NOTE | 2020-08-30 14:58 | DCINST_ITS ---
Discharge Diet: No Restrictions Discharge Activity: May Not Drive, May not drive while taking narcotic pain medications., May Shower - Keep dressing clean dry and intact, Use Walker, - Weight Bearing Status: No weight bearing - Right leg Keep extremity elevated above heart level: Operative Extremity, Right Leg Call your doctor if your incision/area has: Sudden Increased Bleeding, Increased Pain/ Swelling, Foul Smelling Discharge Call your doctor if you observe: Fever of 101 or Higher, Shortness of breath, Chest pain Cleanse incision/area with: Keep Dressing Clean & Dry - Dressing was last changed on 08/25/2020 with some serosanguineous drainage noted to dressing no active bleeding noted. Neurovascular status intact some ecchymosis noted to plantar foot Allergies/Adverse Reactions: Allergies balsam donald Allergy (Verified 08/20/20 04:39) Hives divalproex sodium [From Depakote] Allergy (Verified 08/20/20 04:39) Swelling propylene glycol Allergy (Verified 08/20/20 04:39) Hives thimerosal Allergy (Verified 08/20/20 04:39) Hives TOPAMAX Adverse Reaction (Uncoded 08/20/20 06:15) pt doesn't tolerate it Medications to take at Discharge Prazosin HCl [Minipress] 2 mg PO QHS 02/28/14 Hydroxyzine Pamoate [Vistaril] 50 mg PO 4X/DAY PRN PRN 07/02/14 Meloxicam [Mobic] 15 mg PO BREAKFAST 07/05/14 buPROPion XL [Wellbutrin Xl] 450 mg PO DAILY 07/05/14 Lamotrigine [Lamictal] 200 mg PO BID 09/09/14 cycloBENZAPRine HCl [Flexeril] 10 mg PO TID PRN #20 tab 01/16/15 Docusate Sodium [Colace] 200 mg PO BID 07/16/15 Lansoprazole [Prevacid] 15 mg PO BREAKFAST 07/16/15 Trazodone HCl 300 mg PO QHS 12/15/15 Enoxaparin [Lovenox] 40 mg SC DAILY #30 syringe 08/25/20 Ergocalciferol [Vitamin D] 50,000 unit PO Q7D #30 cap 08/25/20 Gabapentin [Neurontin] 300 mg PO TIDCM cap 08/25/20 Oxycodone HCl/Acetaminophen [Percocet 5-325] 1 tab PO Q6H PRN PRN 7 Days #28 tab 08/25/20 Acetaminophen [Tylenol Tablet] 650 mg PO Q6H PRN PRN tab 08/30/20 Lorazepam [Ativan] 1 mg PO BID PRN PRN 5 Days #10 tab 08/30/20 The following prescriptions were given: Lorazepam [Ativan] 1 mg PO BID PRN PRN 5 Days #10 tab PRN Reason: Anxiety Enoxaparin [Lovenox] 40 mg SC DAILY #30 syringe Prescription Printed Oxycodone HCl/Acetaminophen [Percocet 5-325] 1 tab PO Q6H PRN PRN 7 Days #28 tab PRN Reason: Pain Score 6-10 Prescription Printed Ergocalciferol [Vitamin D] 50,000 unit PO Q7D #30 cap Prescription Printed Primary Care Physician: April Aguilar MD [Primary Care Provider] - Test Results: Test results from this visit will be discussed in further detail at your follow- up appointment, if applicable. Please Follow Up With: Chuyita Robles DPM - When: 2 weeks at [facility]. Call [phone] Proposed Discharge Date: 08/30/20
--- NOTE | 2020-08-30 14:59 | DS.PCM_ITS ---
Discharge Date and Diagnosis - Problem List Patient Problems: Active and Suspected Problems (Last Updated 08/20/20 @ 06:[address] Venkatesh Dan MD) Ankle fracture (Acute) Deterioration in ability to walk (Acute) Trimalleolar fracture of right ankle (Acute) Ankle pain (Acute) Fibromyalgia (Acute) Osteopenia (Acute) Date of Admission: 08/20/20 Date of Discharge: 08/30/20 - Primary Discharge Diagnosis Acute Problems: Active Problems (Last Updated 08/20/20 @ 06:[address] Venkatesh Dan MD) Ankle fracture (Acute) Deterioration in ability to walk (Acute) Trimalleolar fracture of right ankle (Acute) Fibromyalgia (Acute) Osteopenia (Acute) Vitamin D deficiency Hospital Course and Treatment Imaging Results: Clinical Impression(s) from Imaging Studies Ankle X-Ray 08/20/20 04:55 IMPRESSION: Increased posterior subluxation of the talus and lateral subluxation of the talus in relation to the tibia. In addition there is increased displacement of the medial malleolar fracture laterally when compared to the prior study. The distal fibula fracture is similar at 0511 Reported and signed by: Clara Christianson DO Electronically Signed: Clara Christianson DO at 5:10 EST Tel , Service support , Lower Extremity CT 08/20/20 12:16 Ankle X-Ray 08/21/20 13:45 Ankle X-Ray 08/21/20 19:35 IMPRESSION: Grossly satisfactory appearance of distal tibial and fibular fractures status post ORIF. Electronically Signed: Oswaldo Schmitt MD at 20:53 EST , Service support , Podiatry Operations: - - s/p ORIF 08/21/20 Procedures: None Summary of Care Provided: The patient is a 39 year old F with past medical history of PTSD/depression/fibromyalgia who presented with excruciating pain in her right foot. Patient fell down was walking on her stairs at home. Pain is worse with movement and improves with rest. She was seen initially in the emergency department and declined admission. She was sent home after her right ankle was splinted, discharged on crutches. She went home and fell again was using her crutches. Patient done in the ED showed acute trimalleolar fracture which initially had improved with splinting but worsened with displacement and subluxation. Podiatry was consulted, patient had ORIF on 08/21/20. Postoperatively patient was managed on pain medicines and her chronic anxiety/depression medications. She was subsequently discharged [place] a [place] [facility] re[facility]. Patient Problems: Active and Suspected Problems (Last Updated 08/20/20 @ 06:[address] Venkatesh Dan MD) Ankle fracture (Acute) Deterioration in ability to walk (Acute) Trimalleolar fracture of right ankle (Acute) Ankle pain (Acute) Fibromyalgia (Acute) Osteopenia (Acute) Subjective: On the day of discharge, patient was seen and examined. She denied any new complaints. Her pain was controlled. Objective: Physical exam: General: Alert, Oriented x3, Cooperative, No apparent distress HEENT: Atraumatic, PERRLA, EOMI, Normocephalic Oral: Moist Mucosa Neck: Supple, No JVD, Negative Carotid Bruits Lungs: Clear to auscultation, Normal air movement Cardiovascular: Regular rate, Normal S2, No murmurs Abdomen: Bowel Sounds Present, Soft, Non Tender Extremities: - - RLE wrapped in bandage Skin: No rashes, No breakdown Lymphatic: No Cervical, Supraclavicular, or Inguinal Adenopathy Neurological: Cranial nerves II-XII grossly intact Psych/Mental Status: Normal Affect, Appropriate, Alert and oriented to time, place, person, mood and affect - Physical Exam Vitals/I&O's: Vital Signs Temp Pulse Resp BP Pulse Ox 97.9 F 99 16 106/64 98 08/30/20 13:06 08/30/20 13:06 08/30/20 13:06 08/30/20 13:08/30/20 13:06 Oxygen Flow Rate (L/min) 2 Oxygen Delivery Method Room Air Weight: 94.6 kg Body Mass Index (BMI) 38.7 Intake and Output for Last 24 Hours 08/28/20 08/29/20 08/30/20 23:59 23:59 23:59 Intake Total 800 / 800 1340 / 1340 400 / 400 Balance 800 / 800 1340 / 1340 400 / 400 Current Medications Acetaminophen (Acetaminophen 325 Mg Tablet) 650 mg PO Q6H PRN PRN PRN Reason: Pain Score 1-10/Temp > 100.7 F Last Admin: 08/28/20 11:03 Dose: 650 mg Documented by: Bupropion HCl (Bupropion (Xl) 150 Mg Tablet.Xl) 450 mg PO DAILY [facility] Last Admin: 08/30/20 10:04 Dose: 450 mg Documented by: Cyclobenzaprine HCl (Cyclobenzaprine Hcl 10 Mg Tablet) 10 mg PO TID PRN PRN PRN Reason: MS Last Admin: 08/30/20 10:02 Dose: 10 mg Documented by: Doxazosin Mesylate (Doxazosin 1 Mg Tablet) 2 mg PO QHS [facility] Last Admin: 08/29/20 21:17 Dose: 2 mg Documented by: Enoxaparin Sodium (Enoxaparin 40 Mg/0.4 Ml Syringe) 40 mg SC DAILY [facility] Last Admin: 08/30/20 10:05 Dose: 40 mg Documented by: Ergocalciferol (Ergocalciferol 50,000 Unit Capsule) 50,000 unit PO Q7D [facility] Last Admin: 08/30/20 10:02 Dose: 50,000 unit Documented by: Gabapentin (Gabapentin 300 Mg Capsule) 300 mg PO TIDCM [facility] Last Admin: 08/30/20 12:46 Dose: 300 mg Documented by: Hydroxyzine Pamoate (Hydroxyzine Berenice 25 Mg Capsule) 50 mg PO 4X/DAY PRN PRN PRN Reason: ANXIETY Last Admin: 08/30/20 10:02 Dose: 50 mg Documented by: Sodium Chloride () 250 mls @ 15 mls/hr IV .[id number] PRN PRN Reason: Saline Flush Sodium Chloride () 250 mls @ 15 mls/hr IV .[id number] PRN PRN Reason: Additional IVPB Infusion Lamotrigine (Lamotrigine 100 Mg Tablet) 200 mg PO BID [facility] Last Admin: 08/30/20 10:03 Dose: 200 mg Documented by: Lorazepam (Lorazepam 1 Mg Tablet) 1 mg PO BID PRN PRN PRN Reason: ANXIETY UNRELIEVED BY [facility]IL Last Admin: 08/29/20 22:17 Dose: 1 mg Documented by: Meloxicam (Meloxicam 15 Mg Tablet) 15 mg PO BREAKFAST [facility] Last Admin: 08/30/20 10:03 Dose: 15 mg Documented by: Ondansetron HCl (Ondansetron 4 Mg/2 Ml Vial) 4 mg IV Q8H PRN PRN PRN Reason: NAUSEA/VOMITING Oxycodone HCl (Oxycodone 5 Mg Tablet) 5 mg PO Q4H PRN PRN PRN Reason: Pain Score 4-5 Last Admin: 08/26/20 08:38 Dose: 5 mg Documented by: Oxycodone HCl (Oxycodone 5 Mg Tablet) 10 mg PO Q4H PRN PRN PRN Reason: Pain Score 6-10/10 Last Admin: 08/30/20 12:46 Dose: 10 mg Documented by: Pantoprazole Sodium (Pantoprazole Sodium 20 Mg Tablet) 20 mg PO BREAKFAST [facility] Last Admin: 08/30/20 10:03 Dose: 20 mg Documented by: Polyethylene Glycol (Polyethylene Glycol 3350 17 Gm Packet) 17 gm PO DAILY PRN PRN Reason: Constipation Senna/Docusate Sodium (Senna/Docusate Sodium 1 Tablet) 2 tablet PO BID [facility] Last Admin: 08/30/20 10:03 Dose: 2 tablet Documented by: Sodium Chloride (0.9% Saline Lock 10 Ml Syringe) 10 - 40 ml IV UD PRN PRN Reason: SALINE FLUSH Last Admin: 08/26/20 03:04 Dose: 10 ml Documented by: Trazodone HCl (Trazodone 100 Mg Tablet) 300 mg PO QHS [facility] Last Admin: 08/29/20 21:17 Dose: 300 mg Documented by: Discharge Diet: No Restrictions Discharge Activity: May Not Drive, May not drive while taking narcotic pain medications., May Shower - Keep dressing clean dry and intact, Use Walker, - Weight Bearing Status: No weight bearing - Right leg Keep extremity elevated above heart level: Operative Extremity, Right Leg Call your doctor if your incision/area has: Sudden Increased Bleeding, Increased Pain/ Swelling, Foul Smelling Discharge Call your doctor if you observe: Fever of 101 or Higher, Shortness of breath, Chest pain Cleanse incision/area with: Keep Dressing Clean & Dry - Dressing was last changed on 08/25/2020 with some serosanguineous drainage noted to dressing no active bleeding noted. Neurovascular status intact some ecchymosis noted to plantar foot Home Medications: Medications to take at Discharge Prazosin HCl [Minipress] 2 mg PO QHS 02/28/14 Hydroxyzine Pamoate [Vistaril] 50 mg PO 4X/DAY PRN PRN 07/02/14 Meloxicam [Mobic] 15 mg PO BREAKFAST 07/05/14 buPROPion XL [Wellbutrin Xl] 450 mg PO DAILY 07/05/14 Lamotrigine [Lamictal] 200 mg PO BID 09/09/14 cycloBENZAPRine HCl [Flexeril] 10 mg PO TID PRN #20 tab 01/16/15 Docusate Sodium [Colace] 200 mg PO BID 07/16/15 Lansoprazole [Prevacid] 15 mg PO BREAKFAST 07/16/15 Trazodone HCl 300 mg PO QHS 12/15/15 Enoxaparin [Lovenox] 40 mg SC DAILY #30 syringe 08/25/20 Ergocalciferol [Vitamin D] 50,000 unit PO Q7D #30 cap 08/25/20 Gabapentin [Neurontin] 300 mg PO TIDCM cap 08/25/20 Oxycodone HCl/Acetaminophen [Percocet 5-325] 1 tab PO Q6H PRN PRN 7 Days #28 tab 08/25/20 Acetaminophen [Tylenol Tablet] 650 mg PO Q6H PRN PRN tab 08/30/20 Lorazepam [Ativan] 1 mg PO BID PRN PRN 5 Days #10 tab 08/30/20 Following Prescriptions Were Given to Patient: Lorazepam [Ativan] 1 mg PO BID PRN PRN 5 Days #10 tab PRN Reason: Anxiety Prescription Printed Enoxaparin [Lovenox] 40 mg SC DAILY #30 syringe Prescription Printed Oxycodone HCl/Acetaminophen [Percocet 5-325] 1 tab PO Q6H PRN PRN 7 Days #28 tab PRN Reason: Pain Score 6-10 Prescription Printed Ergocalciferol [Vitamin D] 50,000 unit PO Q7D #30 cap Prescription Printed Primary Care Physician: April Aguilar MD [Primary Care Provider] - Please follow up with your Primary Care Physician in: within 1-2 weeks Please Follow Up With: Chuyita Robles DPM - week of Sep 04, 2020 When: as scheduled Disposition: Intermediate facility Minutes spent on discharge:: 40 Patient Condition:: Stable Medical Necessity - Tobacco Use Smoking Status: Never smoker Tobacco Use: Non-smoker Meaningful Use Info Meaningful Use Diagnoses (Choose all that apply): None applicable Inpatient E&M: 20804 Disch Hosp
[2020-08-30] MEDS: LORazepam 1 MG Tablet PO (15:12)
--- NOTE | 2020-08-30 16:15 | CHAPLAIN ---
Type of Pastoral Visit ___ Initial Visit ___ Follow-up Visit ___ On-call Visit ___ General Patient Visit ___ Spiritual Assessment ___ Family Conference ___ Bereavement ___ Rapid Response ___ Code Blue ___ Other (describe below) Pastoral Care Referral From ___ Patient ___ Family ___ Nurse ___ Physician ___ Hydraulic Chair Assembler ___ Lawn Mower Sharpener ___ Other (describe below) Sacrament/Intervention ___ Active listening ___ Anointing ___ Rastafarian ___ Bereavement ___ Communion ___ Yissel exploration ___ ___ Life review ___ Prayer ___ Reconciliation ___ Sacrament of Sick ___ Supportive presence ___ Wedding ___ Other (describe below) Pastoral Comments two attempts made to follow up with this patient as she requested; pt was busy on both occasions
--- NOTE | 2020-08-30 16:31 | PCM.TXEXTCAR ---
- Diet 08/22/20 09:47 Diet: Regular - General Is pt able to select menu?: Yes - Routine Orders/Code Status Routine Lab Work: CBC - within 3 days, BMP - within 3 days Code Status: Full Code - Wound(s) Right ankle Wound Type: Surgical Incision - Therapies Weight Bearing: Non weight bearing Physical Therapy: Eval and Treat Occupational Therapy: Eval and Treat - Allergies/Procedures Done in Hospital Allergies/Adverse Reactions: Allergies balsam donald Allergy (Verified 08/20/20 04:39) Hives divalproex sodium [From Depakote] Allergy (Verified 08/20/20 04:39) Swelling propylene glycol Allergy (Verified 08/20/20 04:39) Hives thimerosal Allergy (Verified 08/20/20 04:39) Hives TOPAMAX Adverse Reaction (Uncoded 08/20/20 06:15) pt doesn't tolerate it Procedures: None - Type of Care/Length of Stay Estimated LOS: Convalescent Care Less Than 30 days Type of Care Needed: Skilled Rehab Potential: Good Prognosis: Good - Additional Orders/Day of Discharge Day of Discharge: 08/30/20 - Follow Up Care Primary Care Physician: April Aguilar MD [Primary Care Provider] - Please follow up with your Primary Care Physician in: within 1-2 weeks Please Follow Up With: Chuyita Robles DPM - When: 2 weeks at [facility]. Call [phone]
[2020-08-30 17:08] VITALS: BP 105/70; PULSE 95; RESP 18; TEMP 36.9; O2SAT 96
--- NOTE | 2020-08-30 17:21 | NURSING ---
report called to Arely at [facility]
--- NOTE | 2020-08-30 20:14 | NURSING ---
reviewed and agree with documentation by CASI Sam
== END 2020-08-30 17:30 | disposition skilled nursing facility (03) ==
LOC: ED 04:53 → MS3 05:17
PROVIDERS: Anesthesiology; Podiatrist Foot & Ankle Surgery; Student in an Organized Health Care Education/Training Program; Admitting Provider Hospitalist; Emergency Provider Emergency Medicine; PCP Internal Medicine; Visit Provider Internal Medicine
PROC: (CPT 27822; principal; 2020-08-21 12:40)
DX: S82.851A Displaced trimalleolar fracture of right lower leg, initial encounter for closed fracture (principal); W19.XXXA Unspecified fall, initial encounter; Y93.01 Activity, walking, marching and hiking; Y92.009 Unspecified place in unspecified non-institutional (private) residence as the place of occurrence of the external cause; Y99.9 Unspecified external cause status; M79.7 Fibromyalgia; F43.10 Post-traumatic stress disorder, unspecified; F32.9 Major depressive disorder, single episode, unspecified; G89.29 Other chronic pain; K59.09 Other constipation; Z79.899 Other long term (current) drug therapy; E55.9 Vitamin D deficiency, unspecified; M79.605 Pain in left leg
CPT/HCPCS: 01480; 27822; 64450; 36415; 73610; 73700; 76000; 80048; 81025; 82306; 84703; 85025; 87426; 93005; 93970; 96361; 96372; 96374; 96376; 97110; 97116; 97162; 97166; 97530; 97535; 99218; 99285; C1713; J7120; A4216; G0378; J2405

== ENCOUNTER 2021-09-05 18:10 | Emergency (ER) | payer MEDICARE, MEDICAID, SELFPAY ==
[2021-09-05 18:11] VITALS: BP 151/94; PULSE 101; RESP 16; TEMP 36.6; O2SAT 98; BMI 41.3
--- NOTE | 2021-09-05 18:28 | ED.VIS.FALL ---
HPI HPI - Fall History of Present Illness Chief Complaint: Fall Detail of Chief Complaint: Fall down 10 steps Informant: patient Occured/Mechanism Occurred: Today Pain/Injury Pain Location: face and lower extremity Narrative Narrative: Patient presents after falling down approximately 10 steps at home. She had surgery for trimalleolar right ankle fracture just over a year ago. She is still wearing a low boot. She was try to go down steps today and did not have the boot on. She slipped and fell. She complains of increased pain to the right ankle as well as a laceration to the right side of her face. She denies loss of consciousness. No headache. [facility] Medical History Fibromyalgia Home Medications prazosin 2 mg PO QHS 02/28/14 [History Last Taken 08/20/20 00:30] hydroxyzine pamoate 50 mg PO 4X/DAY PRN PRN 07/02/14 [History Last Taken 08/05/16] bupropion HCl 450 mg PO DAILY 07/05/14 [History Last Taken 08/19/20 09:00] meloxicam 15 mg PO BREAKFAST 07/05/14 [History Last Taken 08/19/20 09:00] lamotrigine 200 mg PO BID 09/09/14 [History Last Taken 08/20/20 00:30] cyclobenzaprine 10 mg PO TID PRN #20 tab 01/16/15 [Rx Last Taken 08/20/20] docusate sodium 200 mg PO BID 07/16/15 [History Last Taken 08/20/20 00:30] lansoprazole 15 mg PO BREAKFAST 07/16/15 [History Last Taken 08/19/20 09:00] trazodone 300 mg PO QHS 12/15/15 [History Last Taken 08/20/20 00:30] enoxaparin 40 mg SC DAILY #30 syringe 08/25/20 [Rx Last Taken Unknown] ergocalciferol (vitamin D2) 50,000 unit PO Q7D #30 cap 08/25/20 [Rx Last Taken Unknown] gabapentin 300 mg PO TIDCM cap 08/25/20 [Rx Last Taken Unknown] oxycodone-acetaminophen 1 tab PO Q6H PRN PRN 7 Days #28 tab 08/25/20 [Rx Last Taken Unknown] acetaminophen 650 mg PO Q6H PRN PRN tab 08/30/20 [Rx Last Taken Unknown] lorazepam 1 mg PO BID PRN PRN 5 Days #10 tab 08/30/20 [Rx Last Taken Unknown] Allergy/AdvReac Type Severity Reaction Status Date / Time jose j bennett Allergy Hives Verified 09/05/21 18:10 divalproex sodium Allergy Swelling Verified 09/05/21 18:10 [From Depakote] propylene glycol Allergy Hives Verified 09/05/21 18:10 thimerosal Allergy Hives Verified 09/05/21 18:10 TOPAMAX AdvReac pt doesn't Uncoded 09/05/21 18:10 tolerate it Social History Smoking Status: Never smoker ROS ROS ED Constitutional Constitutional ED: Denies chills or fever(s) Eyes Eyes: Denies change in vision ENT ENT ED: Denies sore throat Cardiovascular Cardiovascular: Denies chest pain Respiratory/Chest Respiratory/Chest: Denies cough or dyspnea Gastrointestinal Gastrointestinal: Denies abdominal pain, diarrhea, nausea or vomiting Genitourinary Genitourinary ED: Denies dysuria Musculoskeletal Musculoskeletal: Reports arthralgias and neck pain; Denies back pain Integumentary Denies rash Neurologic Neurologic: Denies headache(s) or weakness Allergic/Immunologic Allergic/Immunologic ED: Denies urticaria EXAM Physical Exam Const Vital Signs: 09/05/21 18:11 09/05/21 18:17 Temperature 97.8 F Temperature Source Temporal Pulse Rate 101 H Respiratory Rate 16 Respiratory Effort Normal Blood Pressure 151/94 H Blood Pressure Mean 113 Pulse Ox 98 Oxygen Delivery Method Room Air Room Air Positive well nourished and well developed General Appearance ED: well developed HEENT Reports normocephalic and head/scalp atraumatic HEENT Narrative: 1 cm laceration over the right maxilla. No bony tenderness. No tenderness around the orbit. Eyes PERRL and EOMs intact bilaterally Neck full ROM and supple Neck Narrative: Mild C-spine tenderness. No step-offs. Chest Wall inspection of chest normal and palpation of chest normal Resp normal respiratory effort and clear to auscultation bilaterally Cardio regular rate and regular rhythm GI normal to inspection, nondistended, normoactive bowel sounds Palpation: soft Back/Spine Thoracic Spine / Upper Back: Negative for thoracic spinal tenderness Lumbar Spine / Lower Back: Negative for lumbar spinal tenderness Extremity Extremity Narrative: Mild tenderness location on the medial aspect of the right ankle. No significant edema. Strong distal pulses with normal sensation. No tenderness at the knee or proximal fibula. Neuro oriented x3 and no sensory deficits noted Sensorium / Orientation: alert Motor Exam: strength 5/5 throughout Psych mental status grossly normal Skin no rashes or lesions noted MDM MDM MDM Narrative Medical decision making narrative: X-rays of the C-spine and right ankle obtained. Patient given a dose of naproxen. Radiography Diagnostic Testing: Clinical Impression(s) from Imaging Studies Ankle X-Ray 09/05/21 18:38 IMPRESSION: No acute process Electronically Signed: Hadley Palm MD at 19:35 EST , Cervical Spine X-Ray 09/05/21 18:41 IMPRESSION: Degenerative changes of the cervical spine. Electronically Signed: Hadley Palm MD at 19:53 EST , Treatment and Re-Evaluation Comments:: C-spine x-ray per my interpretation shows no acute findings. Right ankle x-ray shows hardware to be in place. There is a small bony fragment present over the anterior ankle on the lateral view, however I believe this is also seen on her prior x-rays with her trimalleolar fracture and never healed. Radiology interpretations are reviewed. Right facial laceration sutured. Please see procedure note for details. Patient to follow-up with her primary care physician in 5 days for suture removal. Patient will be referred to local rn immunology for follow-up. Procedures Lacerations Right facial laceration: Length: 0.39 in Depth: Sub Q Shape: Flap Prep: Sai Laceration repair: Irrigated, Lidocaine and Local Number of Sutures/Sidon: 4 Suture Information: Ethilon, Simple and 6-0 Comment: Wound anesthetized with 1.5 cc of 1% lidocaine. Wound cleansed and irrigated. Skin closed with 4 simple interrupted sutures of 6-0 nylon. Discharge Plan Triage Chief Complaint: Fall ED Provider: Sandy Nesbitt Dx/Rx/DC Orders Clinical Impression: Fall, Facial laceration, Ankle sprain Instructions: ED Laceration: All Closures, ED Ankle Sprain (Adult) Prescriptions: No Action prazosin 1 MG capsule 2 mg PO QHS RF: 0 hydroxyzine pamoate 50 MG capsule 50 mg PO 4X/DAY PRN PRN (Reason: Anxiety) RF: 0 meloxicam 15 MG tablet 15 mg PO BREAKFAST RF: 0 bupropion HCl 150 MG tablet extended release 24 hr 450 mg PO DAILY RF: 0 lamotrigine 200 MG tablet 200 mg PO BID RF: 0 cyclobenzaprine 10 MG tablet 10 mg PO TID PRN (Reason: Muscle Spasm) Qty: 20 RF: 0 lansoprazole 30 MG capsule 15 mg PO BREAKFAST RF: 0 docusate sodium 100 MG capsule 200 mg PO BID RF: 0 trazodone 150 MG tablet 300 mg PO QHS RF: 0 ergocalciferol (vitamin D2) 50,000 UNIT capsule 50,000 unit PO Q7D Qty: 30 RF: 3 enoxaparin 40 MG/0.4 ML syringe 40 mg SC DAILY Qty: 30 RF: 2 gabapentin 300 MG capsule 300 mg PO TIDCM RF: 0 oxycodone-acetaminophen 1 TABLET tablet 1 tab PO Q6H PRN PRN (Reason: Pain Score 6-10) 7 Days Qty: 28 RF: 0 acetaminophen 325 MG tablet 650 mg PO Q6H PRN PRN (Reason: Pain Score 1-10/Temp > 100.7 F) RF: 0 lorazepam 1 MG tablet 1 mg PO BID PRN PRN (Reason: Anxiety) 5 Days Qty: 10 RF: 0 Primary Care Provider: April Aguilar Referrals: Jovon Lowry DPM [STAFF PHYSICIAN] - As Needed April Aguilar MD [Primary Care Provider] - 5 Days for suture removal Darryl Bryant DPM [STAFF PHYSICIAN] - As Needed Sharon Brown DPM [STAFF PHYSICIAN] - As Needed Disposition Disposition: Home, Self Care
--- NOTE | 2021-09-05 18:38 | RAD_ITS ---
STUDY: X-RAY - RIGHT ANKLE REASON FOR EXAM: Female, 40 years old. PT REPORTS SHE TRIPPED AND FELL DOWN APPROX 10 STAIRS. NO LOC. LACERATION TO RIGHT CHEEK. RIGHT ANKLE PAIN. HX OF RIGHT ANKLE SURGERY 08/21/20 PER PATIENT. TECHNIQUE: 4 view(s) of the ankle. COMPARISON: Right ankle x-ray dated August 21, 2020 FINDINGS: Cortical plate screw constructs of the distal tibia and fibula noted as well as a threaded syndesmotic screw with healed fracture deformities in the same regions. No visualized acute process. Mild demineralization is present. Normal visualized talus and calcaneus. The visualized subtalar, talonavicular, calcaneocuboid and tarsal articulations are normal. The soft tissue structures are unremarkable. RAD/Ankle min 3 Views IMPRESSION: No acute process Electronically Signed: Hadley Palm MD at 19:35 EST ,
--- NOTE | 2021-09-05 18:41 | RAD_ITS ---
STUDY: X-RAY - CERVICAL SPINE REASON FOR EXAM: Female, 40 years old. PT REPORTS SHE TRIPPED AND FELL DOWN APPROX 10 STAIRS. NO LOC. LACERATION TO RIGHT CHEEK. TECHNIQUE: 3 view(s) of the cervical spine were obtained. COMPARISON: None FINDINGS: Normal anterior atlantoaxial articulation. Normal odontoid process. Normal cervical lordosis. Mild disc space narrowing and anterior osteophyte formation is present at C5-C6 and C6-C7. Normal remaining disc spaces. No visualized fracture. The soft tissue structures are unremarkable. RAD/Cerv Spine 2 or 3 Views IMPRESSION: Degenerative changes of the cervical spine. Electronically Signed: Hadley Palm MD at 19:53 EST ,
[2021-09-05] MEDS: Lidocaine 1% (20 ml mdv) 20 ML Vial INFILT (18:45)
[2021-09-05] MEDS: Naproxen 500 MG Tablet PO (18:45)
== END 2021-09-05 20:10 | disposition home or self-care (01) ==
PROVIDERS: Emergency Provider Emergency Medicine; PCP Internal Medicine; Visit Provider Emergency Medicine
DX: S01.81XA Laceration without foreign body of other part of head, initial encounter (principal); S93.401A Sprain of unspecified ligament of right ankle, initial encounter; W10.9XXA Fall (on) (from) unspecified stairs and steps, initial encounter
CPT/HCPCS: 12011; 72040; 73610; 99283

== ENCOUNTER 2022-06-15 17:16 | Emergency (ER) | payer MEDICARE, MEDICAID, SELFPAY ==
[2022-06-15 17:18] VITALS: BP 145/102; PULSE 110; RESP 18; TEMP 36.2; O2SAT 99; BMI 40.2
--- NOTE | 2022-06-15 17:54 | EDS_ITS ---
HPI <OLIVE Sanchez - Last Filed: 06/15/22 21:31> History of Present Illness Chief Complaint: Lower Extremity Injury Narrative Narrative: Patient presents with right knee pain that started Friday morning. She states the pain started in her right anterior thigh night and on Friday morning she woke up to a painful, stiff, and swollen right knee. She denies injury to the knee. She has a history of psoriatic arthritis. She denies joint instability, decreased range of motion, and buckling in the knee. She states she has never had gout or pseudogout in the past. PFSH <OLIVE Sanchez - Last Filed: 06/15/22 21:31> [facility] Medical History Fibromyalgia Psoriatic arthritis Allergy/AdvReac Type Severity Reaction Status Date / Time balsam donald Allergy Hives Verified 06/15/22 17:17 divalproex sodium Allergy Swelling Verified 06/15/22 17:17 [From Depakote] propylene glycol Allergy Hives Verified 06/15/22 17:17 thimerosal Allergy Hives Verified 06/15/22 17:17 TOPAMAX AdvReac pt doesn't Uncoded 06/15/22 17:17 tolerate it Social History Smoking Status: Never smoker ROS <OLIVE Sanchez - Last Filed: 06/15/22 21:31> ROS ED Constitutional Constitutional ED: Denies chills, fever(s) or sweats Eyes Eyes: Denies change in vision ENT ENT ED: Denies rhinorrhea or sore throat Cardiovascular Cardiovascular: Denies chest pain or palpitations Respiratory/Chest Respiratory/Chest: Denies cough, dyspnea, dyspnea on exertion, shortness of breath at rest or shortness of breath with exertion Gastrointestinal Gastrointestinal: Denies abdominal pain, diarrhea, nausea or vomiting Genitourinary Genitourinary ED: Denies dysuria Musculoskeletal Musculoskeletal: Denies back pain or neck pain Integumentary Denies abscess, Abrasions or rash Neurologic Neurologic: Denies headache(s), paresthesias or weakness EXAM <OLIVE Sanchez - Last Filed: 06/15/22 21:31> Physical Exam Const Vital Signs: 11/19/22 17:18 Temperature 97.2 F L Temperature Source Temporal Pulse Rate 110 H Respiratory Rate 18 Blood Pressure 145/102 H Blood Pressure Mean 116 Pulse Ox 99 Oxygen Delivery Method Room Air Positive obese Nutritional Appearance: obese HEENT Reports moist mucous membranes Eyes PERRL Neck full ROM and supple Resp normal respiratory effort, no retractions and clear to auscultation bilaterally Cardio regular rate, regular rhythm and no murmurs GI non-tender, non-distended and no masses Palpation: soft Extremity full ROM Extremity Narrative: Patient has mild edema in the right knee and mild tenderness to palpation along the entire R knee. Valgus and varus tests normal, normal posterior drawer test, normal anterior drawer test. No crepitus in the right knee. No R knee instability. patient is able to ambulate on the right knee with mild pain. Patient has full range of motion in her right knee. No ecchymosis, erythema, or warmth in any extremity. Patient is neurovascularly intact. Neuro oriented x3, moves all extremities and no sensory deficits noted Sensorium / Orientation: alert Motor Exam: strength 5/5 throughout Psych mental status grossly normal Skin no wounds Lesions: no lesions Rashes: no rashes <Dr. Harsh Melchor DO - Last Filed: 06/15/22 21:35> Physical Exam Const Vital Signs: 06/15/22 17:18 Temperature 97.2 F L Temperature Source Temporal Pulse Rate 110 H Respiratory Rate 18 Blood Pressure 145/102 H Blood Pressure Mean 116 Pulse Ox 99 Oxygen Delivery Method Room Air MDM <OLIVE Sanchez - Last Filed: 06/15/22 21:31> [facility] Narrative Medical decision making narrative: Patient's knee x-ray is normal. I am not finding any abnormalities on exam such as deformity, instability, buckling, or crepitus. She has full range of motion in her knee and is able to bear weight on it. I have instructed her to apply an Charly wrap to the knee, keep it elevated, take [id number] NSAIDs for pain, and follow-up with her PCP in a week or so if no improvement. Patient is agreeable with plan. I am comfortable with patient discharging home. Radiography Diagnostic Testing: Clinical Impression(s) from Imaging Studies Knee X-Ray 06/15/22 18:02 IMPRESSION: Normal x-ray examination of the knee. Electronically Signed: Darren Medina MD at 18:36 EST , Normal x-ray of the knee. I agree with radiologist impressions. This x-ray has also been reviewed by attending ED physician. <Dr. Harsh Melchor, DO - Last Filed: 06/15/22 21:35> [facility] MDM Narrative Medical decision making narrative: Patient's knee x-ray is normal. I am not finding any abnormalities on exam such as deformity, instability, buckling, or crepitus. She has full range of motion in her knee and is able to bear weight on it. I have instructed her to apply an Charly wrap to the knee, keep it elevated, take [id number] NSAIDs for pain, and follow-up with her PCP in a week or so if no improvement. Patient is agreeable with plan. I am comfortable with patient discharging home. Radiography Diagnostic Testing: Clinical Impression(s) from Imaging Studies Knee X-Ray 06/15/22 18:02 IMPRESSION: Normal x-ray examination of the knee. Electronically Signed: Darren Medina MD at 18:36 EST , Treatment and Re-Evaluation Narrative: This patient was seen with a PA/GANG WORKER Individually assessed they patient including history and physical. I have reviewed everything on the chart that is available and agree with the documentation provided by the PA/GANG WORKER including discussion about the assessment, treatment plan, discussion, and return precautions. Patient arriving with nontraumatic right knee pain. She is able to ambulate on it but states it hurts. We obtained an x-ray of the right knee and on my interpretation this shows no acute fracture or subluxation. There is no significant effusion noted. Patient declines any analgesia in ER and states she does not want a narcotic pain medicine. Given this I feel she safe for discharge home. She is counseled to ice, elevate, rest. She was given an Charly wrap here. Discharge Plan Triage Chief Complaint: Lower Extremity Injury ED Midlevel Provider: Milli Brandon ED Provider: Harsh Melchor Dx/Rx/DC Orders Clinical Impression: Acute knee pain Instructions: ED Knee Sprain Primary Care Provider: April Aguilar Referrals: April Aguilar MD [Primary Care Provider] - 10-14 Days if not better Activity Restrictions/Additional Instructions: Keep extremity elevated to help reduce swelling. Ice the area for 10 to 15 minutes 3-4 times a day for the next few days. You can use an Charly wrap for stability. Follow-up with PCP if no improvement in symptoms. Disposition Disposition: Home, Self Care Discharge Date/Time: 06/15/22 19:13
--- NOTE | 2022-06-15 18:02 | RAD_ITS ---
STUDY: X-RAY - RIGHT KNEE REASON FOR EXAM: Female, 41 years old. pain and swelling in knee TECHNIQUE: 3 view(s) of the knee. COMPARISON: None. FINDINGS: Normal visualized distal femur. Normal visualized proximal tibia and fibula. Normal proximal tibiofibular articulation. Normal medial femorotibial compartment. Normal lateral femorotibial compartment. Normal patellofemoral articulation. The soft tissue structures are unremarkable. RAD/Knee 3 Views IMPRESSION: Normal x-ray examination of the knee. Electronically Signed: Darren Medina MD at 18:36 EST ,
== END 2022-06-15 19:13 | disposition home or self-care (01) ==
PROVIDERS: Emergency Provider Student in an Organized Health Care Education/Training Program; PCP Internal Medicine; Visit Provider Student in an Organized Health Care Education/Training Program
DX: M25.561 Pain in right knee (principal); E66.9 Obesity, unspecified
CPT/HCPCS: 73562; 99282

== ENCOUNTER 2022-07-05 09:45 | Emergency (ER) | payer MEDICARE, MEDICAID, SELFPAY ==
[2022-07-05 09:46] VITALS: BP 127/85; PULSE 103; RESP 18; TEMP 36.2; O2SAT 100; BMI 39.8
--- NOTE | 2022-07-05 10:21 | ED.VIS.DENTA ---
HPI History of Present Illness Chief Complaint: Dental Narrative Narrative: 41-year-old female presenting with left mandibular pain. She states that a couple of nights ago she yawned and felt a click in the left side of her jaw. She states she has had this sensation before and she states that usually clicks again and it feels like it is better aligned. She states she is having trouble eating secondary to pain in the left mandible. She is not having trouble swallowing, but she is having trouble biting down because it hurts. She does not have any facial swelling. She has not any dental injury. She describes a history of TMJ syndrome, but never has had a dislocation of her mandible that she knows of. She states she did tell her dentist that she has this problem and the dentist told her she may need a bite block. No further follow-up was done. [facility] Medical History Fibromyalgia Psoriatic arthritis Home Medications naproxen 500 mg tablet (Naprosyn) 500 mg PO BID PRN pain #20 tabs 07/05/22 [Rx Last Taken Unknown] Allergy/AdvReac Type Severity Reaction Status Date / Time balsam donald Allergy Hives Verified 07/05/22 09:46 divalproex sodium Allergy Swelling Verified 07/05/22 09:46 [From Depakote] propylene glycol Allergy Hives Verified 07/05/22 09:46 thimerosal Allergy Hives Verified 07/05/22 09:46 topiramate [From Topamax] AdvReac Other Verified 07/05/22 09:46 Social History Smoking Status: Never smoker ROS ROS ED Constitutional Constitutional ED: Denies chills or fever(s) Eyes Eyes: Denies change in vision ENT ENT ED: Reports other Details: Left-sided jaw ; Denies rhinorrhea or sore throat Cardiovascular Cardiovascular: Denies chest pain or palpitations Respiratory/Chest Respiratory/Chest: Denies cough or dyspnea Gastrointestinal Gastrointestinal: Denies abdominal pain or constipation Genitourinary Genitourinary ED: Denies dysuria or hematuria Musculoskeletal Musculoskeletal: Denies arthralgias or back pain Integumentary Denies abscess or Abrasions Neurologic Neurologic: Denies headache(s) Psychiatric Psychiatric: Denies anxiety Endocrine Endocrinology: Denies cold intolerance EXAM Physical Exam Const Vital Signs: 07/05/22 09:46 Temperature 97.1 F L Temperature Source Temporal Pulse Rate 103 H Respiratory Rate 18 Blood Pressure 127/85 H Blood Pressure Mean 99 Pulse Ox 100 Oxygen Delivery Method Room Air Positive well nourished General Appearance ED: NAD HEENT normocephalic Face and Sinus: face symmetric and facial tenderness left (Angle of the left mandible); Negative for facial edema Mouth ED: Yes oral and palatal mucosa normal, Yes lips normal, Yes tongue normal, Yes salivary gland normal, No dysphonia, No drooling, No muffled voice, Yes oral and palatal mucosa abnormal and No trismus Mouth: oral and palatal mucosa normal, lips normal, tongue normal, salivary gland normal, No dysphonia, No drooling, No muffled voice, oral and palatal mucosa abnormal and No trismus Throat: posterior oropharynx normal and tonsils normal; Negative for uvular edema Eyes PERRL Resp normal respiratory effort Cardio regular rate and regular rhythm Neuro oriented x3 Psych mental status grossly normal MDM MDM MDM Narrative Medical decision making narrative: Patient presenting with left-sided TMJ pain. Does not appear to be malocclusion on examination. Parotid gland appears normal. Oropharynx is patent without stridor. Posterior oropharyngeal edema. Dentition are normal. Buccal mucosa normal. Gingiva normal. Patient given Naprosyn for pain. I obtained x-rays of the mandible which on my interpretation show no acute fracture or subluxation. Radiologist interprets this and agree. I suspect she likely has TMJ syndrome and not a dislocation. She is given Naprosyn for home. Patient discharged home in stable condition. Impression: 1. TMJ syndrome Lab Data Attestation: I reviewed the patient's lab results. Radiography Diagnostic Testing: Clinical Impression(s) from Imaging Studies Mandible X-Ray 07/05/22 11:30 IMPRESSION: Normal x-ray examination of the mandible. Electronically Signed: Eleuterio Catalan MD at 11:55 EST , Discharge Plan Triage Chief Complaint: Dental ED Provider: Harsh Melchor Dx/Rx/DC Orders Instructions: ED TMJ Syndrome Prescriptions: New naproxen [Naprosyn] 500 mg tablet 500 mg PO BID PRN (Reason: pain) Qty: 20 0RF Primary Care Provider: April Aguilar Referrals: April Aguilar MD [Primary Care Provider] - Disposition Disposition: Home, Self Care
--- NOTE | 2022-07-05 11:30 | RAD_ITS ---
STUDY: X-RAY - MANDIBLE (COMPLETE) REASON FOR EXAM: Female, 41 years old. Left sided jaw pain TECHNIQUE: 5 view(s) of the mandible were obtained. COMPARISON: None. FINDINGS: Normal mandible. Normal visualized right temporomandibular joint. Normal visualized left temporomandibular joint. The remaining visualized osseous structures are normal. The soft tissue structures are unremarkable. RAD/Mandible Min 4 Views IMPRESSION: Normal x-ray examination of the mandible. Electronically Signed: Eleuterio Catalan MD at 11:55 EST ,
--- NOTE | 2022-07-05 12:36 | ED.RN ---
Pt. rang call light and this RN came in to check on patient. Patient states I have been here for a a while and have had x rays over and hour ago what is taking so long. Pt. told that she was up to be re-evaluated by the DrYobany but that I did not know when that specifically the Dr. would be in. I let pt. know that the ER is full, and the Dr. sees patients based on acuity. Pt. continued to say things such as I am being ignored, no one has even gone over my meds with me, I am being neglected and my ride is going to be here soon.
[2022-07-05 13:53] VITALS: BP 121/77; PULSE 68; RESP 15; O2SAT 98
[2022-07-05] MEDS: Naproxen 500 MG Tablet PO (13:53)
== END 2022-07-05 13:54 | disposition home or self-care (01) ==
PROVIDERS: Emergency Provider Student in an Organized Health Care Education/Training Program; PCP Internal Medicine; Visit Provider Student in an Organized Health Care Education/Training Program
DX: M26.622 Arthralgia of left temporomandibular joint (principal); J39.2 Other diseases of pharynx; M79.7 Fibromyalgia
CPT/HCPCS: 70110; 99283